=== PATIENT | male | born 1945 | race Caucasian/White ===

== ENCOUNTER → 2017-11-12 13:11 | Outpatient (CLI) | payer MEDICARE, SELFPAY ==
[2017-11-11 16:18] LABS: Absolute Lymphocyte Count 2.19 X10^3/ul (0.83-4.51); Absolute Neutrophil Count 4.1 X10^3/uL (2.0-7.7); Basophil# 0.03 X10^3/uL; Basophil% 0.4 % (0-1); Eosinophil# 0.04 X10^3/uL; Eosinophils% 0.6 % (0-5); Hematocrit 39.6 % (40-54); Hemoglobin 13.2 g/dl (13.0-16.5); Lymphocyte # 2.19 X10^3/ul (4.0); Lymphocyte % 31.6 % (19-41); Mean Corp Hgb Conc 33.3 g/gl (32-36); Mean Corpuscular Hgb 31.7 pg (27.0-32.0); Mean Platelet Vol. 10.8 fl (6.2-12.0); Monocyte# 0.58 X10^3/uL; Monocyte% 8.4 % (0-10); Neutrophil # 4.08 X10^3/uL (2.7-7.7); Neutrophil % 58.7 % (47-70); Platelet Count 167 K/mm3 (150-450); RBC Distribution Width CV 13.4 % (11.6-14.6); RBC Distribution Width SD 44.8 fl (35.1-43.9); Red Blood Count 4.17 M/mm3 (4.6-6.2); White Blood Count 6.9 K/mm3 (4.4-11.0)
[2017-11-11 16:24] LABS: POSITIVE COUNT NO; POSITIVE DIFFERENTIAL NO; POSITIVE MORPHOLOGY NO
[2017-11-11 16:44] LABS: PSA,Total- Diagnostic < 0.01 ng/mL (0.0-4.0)
--- NOTE | 2017-11-12 13:12 | CT_ITS ---
STUDY: CT PELVIS WITH CONTRAST REASON FOR EXAM: Male, 71 years old. Patient has a history of prostate cancer. This is a radiation treatment planning examination. RADIATION DOSAGE (If Supplied By Facility): CTDIvol = ( 24.62 ) mGy, DLP = ( 991.86 ) mGycm TECHNIQUE: Transaxial imaging of the pelvis was performed with oral contrast. 100 ml of Isovue 300 contrast was administered intravenously. Individualized dose optimization techniques were used for this CT. COMPARISON: Comparison is made with prior study dated May 07, 2016. FINDINGS: Normal urinary bladder. The patient is status post prostatectomy. Small bilateral benign-appearing inguinal lymph nodes. Normal visualized small intestine. There are multiple colonic diverticula of the sigmoid colon consistent with chronic diverticulosis. There is minimal fluid within the cul-de-sac consistent with a normal physiologic pelvic fluid. There is no pelvic lymphadenopathy or mass lesion. Normal visualized pelvic arteries. Normal abdominal wall. There are diffuse degenerative changes of the visualized lumbar spine. Stable tiny sclerotic density in the right iliac crest and left acetabulum. These are unchanged and most likely represent tiny bone islands. CT/Pelvis WITH IV Contrast IMPRESSION: The patient is status post prostatectomy. No acute abnormality is seen. Electronically Signed: Edgard Amin MD at 10:44 EDT Tel [phone], Service support ,
[2017-11-12 14:10] LABS: CREATININE FINGERSTICK < 0.6 mg/dL (0.70-1.30); EGFR FINGERSTICK > 60.0000 mL/min (>60)
== END ==
PROVIDERS: Family Provider Internal Medicine; PCP Internal Medicine; Visit Provider Radiology Radiation Oncology
DX: Z01.818 Encounter for other preprocedural examination (principal); C61 Malignant neoplasm of prostate
CPT/HCPCS: 36415; 72193; 84153; 85025; Q9967

== ENCOUNTER → 2017-12-05 15:33 | Outpatient (CLI) | payer MEDICARE, SELFPAY ==
[2017-12-05 15:57] LABS: Absolute Lymphocyte Count 2.06 X10^3/ul (0.83-4.51); Absolute Neutrophil Count 2.7 X10^3/uL (2.0-7.7); Basophil# 0.04 X10^3/uL; Basophil% 0.7 % (0-1); Eosinophil# 0.15 X10^3/uL; Eosinophils% 2.8 % (0-5); Hematocrit 39.5 % (40-54); Hemoglobin 13.6 g/dl (13.0-16.5); Lymphocyte # 2.06 X10^3/ul (4.0); Lymphocyte % 37.8 % (19-41); Mean Corp Hgb Conc 34.4 g/gl (32-36); Mean Corpuscular Hgb 31.7 pg (27.0-32.0); Mean Corpuscular Volume 92.1 fL (80-94); Mean Platelet Vol. 9.9 fl (6.2-12.0); Monocyte% 9.2 % (0-10); Neutrophil # 2.69 X10^3/uL (2.7-7.7); Neutrophil % 49.3 % (47-70); Platelet Count 160 K/mm3 (150-450); RBC Distribution Width CV 12.7 % (11.6-14.6); RBC Distribution Width SD 41.6 fl (35.1-43.9); Red Blood Count 4.29 M/mm3 (4.6-6.2); White Blood Count 5.5 K/mm3 (4.4-11.0)
[2017-12-05 16:06] LABS: POSITIVE COUNT NO; POSITIVE DIFFERENTIAL NO; POSITIVE MORPHOLOGY NO
== END ==
PROVIDERS: Family Provider Internal Medicine; PCP Internal Medicine; Visit Provider Radiology Radiation Oncology
DX: C61 Malignant neoplasm of prostate (principal)
CPT/HCPCS: 36415; 85025

== ENCOUNTER → 2017-12-06 08:13 | Outpatient (CLI) | payer MEDICARE, SELFPAY | PROVIDERS: Family Provider Internal Medicine; PCP Internal Medicine; Visit Provider Radiology Radiation Oncology | DX: C61 Malignant neoplasm of prostate (principal) | CPT/HCPCS: 77014 ==

== ENCOUNTER → 2017-12-24 08:39 | Outpatient (CLI) | payer MEDICARE, SELFPAY ==
[2017-12-24 09:54] LABS: AST(SGOT) 27 U/L (15-37); Alanine Aminotransfer ALT/SGPT 40 U/L (16-61); Albumin, Serum 3.8 g/dL (3.2-5.0); Alkaline Phosphatase 51 U/L (45-117); Bilirubin, Direct 0.23 mg/dL (0.00-0.30); Cholesterol 158 mg/dL (200); Globulin 3.2 g/dL (2.2-4.2); High Density Lipoprotein 66 mg/dL; Triglycerides 58 mg/dL; Very Low Density Lipoprotein 12 mg/dL (5-40)
== END ==
PROVIDERS: Family Provider Internal Medicine; PCP Internal Medicine; Visit Provider Internal Medicine Cardiovascular Disease
DX: E78.5 Hyperlipidemia, unspecified (principal); Z79.899 Other long term (current) drug therapy
CPT/HCPCS: 36415; 80061; 80076

== ENCOUNTER → 2017-12-26 09:40 | Outpatient (CLI) | payer MEDICARE, SELFPAY ==
[2017-12-26 11:11] LABS: Absolute Lymphocyte Count 1.06 X10^3/ul (0.83-4.51); Absolute Neutrophil Count 4.3 X10^3/uL (2.0-7.7); Basophil# 0.05 X10^3/uL; Basophil% 0.9 % (0-1); Eosinophil# 0.12 X10^3/uL; Eosinophils% 2.1 % (0-5); Hematocrit 37.2 % (40-54); Hemoglobin 12.4 g/dl (13.0-16.5); Lymphocyte # 1.06 X10^3/ul (4.0); Lymphocyte % 18.3 % (19-41); Mean Corp Hgb Conc 33.3 g/gl (32-36); Mean Corpuscular Hgb 31.2 pg (27.0-32.0); Mean Corpuscular Volume 93.7 fL (80-94); Mean Platelet Vol. 9.6 fl (6.2-12.0); Monocyte% 5.2 % (0-10); Neutrophil # 4.26 X10^3/uL (2.7-7.7); Neutrophil % 73.3 % (47-70); POSITIVE COUNT NO; POSITIVE DIFFERENTIAL NO; POSITIVE MORPHOLOGY NO; Platelet Count 173 K/mm3 (150-450); RBC Distribution Width CV 13.3 % (11.6-14.6); RBC Distribution Width SD 46.1 fl (35.1-43.9); Red Blood Count 3.97 M/mm3 (4.6-6.2); White Blood Count 5.8 K/mm3 (4.4-11.0)
== END ==
PROVIDERS: Family Provider Internal Medicine; PCP Internal Medicine; Visit Provider Radiology Radiation Oncology
DX: C61 Malignant neoplasm of prostate (principal)
CPT/HCPCS: 36415; 85025

== ENCOUNTER → 2018-06-24 08:43 | Outpatient (CLI) | payer MEDICARE, SELFPAY ==
--- NOTE | 2018-06-24 08:48 | US_ITS ---
PROCEDURES: ULTRASOUND AORTA REASON FOR EXAM: Male, 72 years old. History of smoking and hypertension. TECHNIQUE: Ultrasound evaluation of the aorta was performed with real-time and static low-scale imaging. COMPARISON: None. FINDINGS: There is no elongation or tortuosity of the abdominal aorta. Aorta measures: Proximal 2.1 cm. Middle 1.6 cm. Distal 1.4 cm. Aorta measure transversely: Proximal 2.3 cm. Middle 1.9 cm. Distal 1.7 cm. Right iliac artery measures: 0.9 cm. Right iliac artery measure transversely: 1.0 cm. Left iliac artery measures: 1.0 cm. Left iliac artery measure transversely: 1.0 cm. There is no demonstrated aneurysm.. There are peripheral calcifications within the abdominal aorta. US/US ABD AORTA SCREEN/AAA IMPRESSION: No abdominal aortic aneurysm. Atherosclerosis. Electronically Signed: Yamilex Gutierrez MD at 16:52 EDT Tel , Service support ,
== END ==
PROVIDERS: Family Provider Internal Medicine; PCP Internal Medicine; Referring Provider Nurse Practitioner Family; Visit Provider Nurse Practitioner Family
DX: Z13.6 Encounter for screening for cardiovascular disorders (principal); I10 Essential (primary) hypertension; Z87.891 Personal history of nicotine dependence
CPT/HCPCS: 76706

== ENCOUNTER → 2018-07-01 08:06 | Outpatient (CLI) | payer MEDICARE, SELFPAY ==
[2018-07-01 09:11] LABS: Anion Gap 6 (5-15); BUN 18 mg/dL (7-18); Calcium,Total 8.6 mg/dL (8.5-10.1); Chloride 108 mmol/L (98-107); EST Glomerular Filtration Rate 88 mL/min (>60); Est Glom Filt Rate - Afr Amer 107 mL/min (>60); Glucose 94 mg/dL (74-106); Potassium 4.3 mmol/L (3.5-5.1); Sodium Level 142 mmol/L (136-145)
[2018-07-01 09:20] LABS: AST(SGOT) 22 U/L (15-37); Alanine Aminotransfer ALT/SGPT 36 U/L (16-61); Albumin, Serum 3.9 g/dL (3.2-5.0); Alkaline Phosphatase 52 U/L (45-117); Bilirubin, Direct 0.24 mg/dL (0.00-0.30); Cholesterol 156 mg/dL (200); Globulin 3.2 g/dL (2.2-4.2); High Density Lipoprotein 71 mg/dL; PSA,Total- Diagnostic 0.02 ng/mL (0.0-4.0); Protein, Total 7.1 g/dL (6.4-8.2); Triglycerides 55 mg/dL; Very Low Density Lipoprotein 11 mg/dL (5-40)
== END ==
PROVIDERS: Internal Medicine Cardiovascular Disease; Nurse Practitioner Family; Family Provider Internal Medicine; PCP Internal Medicine; Referring Provider Urology; Visit Provider Urology
DX: C61 Malignant neoplasm of prostate (principal); I10 Essential (primary) hypertension; E78.5 Hyperlipidemia, unspecified; R97.20 Elevated prostate specific antigen [PSA]
CPT/HCPCS: 36415; 80048; 80061; 80076; 84153

== ENCOUNTER → 2018-08-18 08:16 | Outpatient (CLI) | payer MEDICARE, SELFPAY ==
[2018-08-18 09:33] LABS: Anion Gap 8 (5-15); BUN 15 mg/dL (7-18); BUN/Creat Ratio 16.3 RATIO (10-20); Calcium,Total 8.5 mg/dL (8.5-10.1); Chloride 99 mmol/L (98-107); Creatinine, Serum 0.92 mg/dL (0.70-1.30); EST Glomerular Filtration Rate 86 mL/min (>60); Est Glom Filt Rate - Afr Amer 104 mL/min (>60); Glucose 95 mg/dL (74-106); Potassium 4.2 mmol/L (3.5-5.1); Sodium Level 135 mmol/L (136-145)
== END ==
PROVIDERS: Family Provider Internal Medicine; PCP Internal Medicine; Referring Provider Internal Medicine; Visit Provider Internal Medicine
DX: I10 Essential (primary) hypertension (principal)
CPT/HCPCS: 36415; 80048

== ENCOUNTER → 2018-10-17 08:54 | Outpatient (CLI) | payer MEDICARE, SELFPAY ==
[2018-10-17 08:19] VITALS: BMI 26.7
[2018-10-17 12:09] LABS: Absolute Lymphocyte Count 2.12 X10^3/ul (0.83-4.51); Absolute Neutrophil Count 5.4 X10^3/uL (2.0-7.7); Basophil# 0.02 X10^3/uL; Basophil% 0.2 % (0-1); Eosinophil# 0.03 X10^3/uL; Eosinophils% 0.4 % (0-5); Hematocrit 42.9 % (40-54); Hemoglobin 14.4 g/dl (13.0-16.5); Lymphocyte # 2.12 X10^3/ul (4.0); Lymphocyte % 26.4 % (19-41); Mean Corp Hgb Conc 33.6 g/gl (32-36); Mean Corpuscular Hgb 31.9 pg (27.0-32.0); Mean Corpuscular Volume 94.9 fL (80-94); Monocyte# 0.46 X10^3/uL; Monocyte% 5.7 % (0-10); Neutrophil # 5.38 X10^3/uL (2.7-7.7); Neutrophil % 67.2 % (47-70); POSITIVE COUNT NO; POSITIVE DIFFERENTIAL NO; POSITIVE MORPHOLOGY NO; Platelet Count 221 K/mm3 (150-450); RBC Distribution Width CV 13.1 % (11.6-14.6); RBC Distribution Width SD 44.1 fl (35.1-43.9); Red Blood Count 4.52 M/mm3 (4.6-6.2)
[2018-10-17 12:32] LABS: AST(SGOT) 28 U/L (15-37); Alanine Aminotransfer ALT/SGPT 36 U/L (16-61); Albumin, Serum 4.2 g/dL (3.2-5.0); Alkaline Phosphatase 50 U/L (45-117); Bilirubin, Direct 0.31 mg/dL (0.00-0.30); Cholesterol 185 mg/dL (200); Globulin 3.4 g/dL (2.2-4.2); High Density Lipoprotein 87 mg/dL; Protein, Total 7.6 g/dL (6.4-8.2); Triglycerides 83 mg/dL; Very Low Density Lipoprotein 17 mg/dL (5-40)
[2018-10-17 12:33] LABS: Anion Gap 8 (5-15); BUN 18 mg/dL (7-18); BUN/Creat Ratio 16.8 RATIO (10-20); Chloride 101 mmol/L (98-107); Creatinine, Serum 1.07 mg/dL (0.70-1.30); EST Glomerular Filtration Rate 72 mL/min (>60); Est Glom Filt Rate - Afr Amer 87 mL/min (>60); Glucose 91 mg/dL (74-106); Potassium 4.3 mmol/L (3.5-5.1); Sodium Level 134 mmol/L (136-145)
== END ==
PROVIDERS: Internal Medicine Cardiovascular Disease; Family Provider Internal Medicine; PCP Internal Medicine; Visit Provider Nurse Practitioner Family
DX: R11.2 Nausea with vomiting, unspecified (principal); I10 Essential (primary) hypertension; E78.5 Hyperlipidemia, unspecified; R26.89 Other abnormalities of gait and mobility
CPT/HCPCS: 36415; 80048; 80061; 80076; 85025

== ENCOUNTER → 2018-11-07 14:05 | Outpatient (CLI) | payer MEDICARE, SELFPAY ==
[2018-10-31 08:16] VITALS: BMI 26.7
--- NOTE | 2018-11-07 14:09 | EKG12_ITS ---
Test Reason : PRE-OP Blood Pressure : / mmHG Vent. Rate : 070 BPM Atrial Rate : 070 BPM P-R Int : 234 ms QRS Dur : 096 ms QT Int : 402 ms P-R-T Axes : -02 049 019 degrees QTc Int : 434 ms Sinus rhythm with 1st degree A-V block with occasional Premature ventricular complexes Otherwise normal ECG Confirmed by NHI ZARATE ([id number]), mapping editor ZEE SINHA ([id number]) on 11/10/2018 4:55:52 PM Referred By: Jonny Wallace Confirmed By:NHI ZARATE
== END ==
PROVIDERS: Family Provider Internal Medicine; PCP Internal Medicine; Referring Provider Nurse Practitioner Family; Visit Provider Nurse Practitioner Family
DX: I49.3 Ventricular premature depolarization (principal)
CPT/HCPCS: 93005

== ENCOUNTER → 2019-01-15 16:48 | Outpatient (CLI) | payer MEDICARE, SELFPAY ==
[2018-12-09 11:13] VITALS: BMI 26.7
[2019-01-15 17:27] LABS: PSA,Total- Diagnostic 0.01 ng/mL (0.0-4.0)
== END ==
PROVIDERS: Family Provider Internal Medicine; PCP Internal Medicine; Referring Provider Urology; Visit Provider Urology
DX: C61 Malignant neoplasm of prostate (principal)
CPT/HCPCS: 36415; 84153

== ENCOUNTER → 2019-03-03 08:31 | Outpatient (CLI) | payer MEDICARE, SELFPAY ==
[2019-03-03 08:12] VITALS: BMI 26.7
[2019-03-03 12:31] LABS: BUN 22 mg/dL (7-18); Creatinine, Serum 1.06 mg/dL (0.70-1.30); Glucose 100 mg/dL (74-106)
[2019-03-03 12:32] LABS: ALB/GLOB Ratio 1.3 RATIO (0.9-2.4); AST(SGOT) 26 U/L (15-37); Alanine Aminotransfer ALT/SGPT 36 U/L (16-61); Albumin, Serum 4.1 g/dL (3.2-5.0); Alkaline Phosphatase 47 U/L (45-117); Anion Gap 8 (5-15); BUN/Creat Ratio 20.8 RATIO (10-20); Chloride 100 mmol/L (98-107); EST Glomerular Filtration Rate 73 mL/min (>60); Est Glom Filt Rate - Afr Amer 88 mL/min (>60); Globulin 3.2 g/dL (2.2-4.2); Potassium 4.5 mmol/L (3.5-5.1); Protein, Total 7.3 g/dL (6.4-8.2); Sodium Level 135 mmol/L (136-145)
== END ==
PROVIDERS: Family Provider Internal Medicine; PCP Internal Medicine; Visit Provider Internal Medicine
DX: I10 Essential (primary) hypertension (principal); E78.5 Hyperlipidemia, unspecified
CPT/HCPCS: 36415; 80053

== ENCOUNTER → 2019-03-25 06:19 | Outpatient (CLI) | payer MEDICARE, SELFPAY ==
[2019-03-05 08:47] VITALS: BMI 26.3
--- NOTE | 2019-03-25 22:55 | STRESSREP ---
Stress Test Report Exercise myocardial perfusion stress test. 73-year-old man with a history of coronary artery disease. Medications: Aspirin, losartan, hydrochlorothiazide, Plavix, metoprolol. Stress protocol: Resting EKG demonstrates sinus bradycardia with a rate of 55 bpm normal intervals are noted resting blood pressures 126/72 mmHg. The patient exercised according to regular Aniceto protocol for a total duration of 6 minutes and 45 seconds. The maximum heart rate attained was 141 bpm which was 95% of maximum predicted heart rate and maximum workload was 8.1 metabolic equivalents. The patient maintained sinus rhythm throughout the recording. At rest there were nonspecific ST-T wave changes noted with no meet the criteria for ischemia at peak exercise was approximately 1.[address] depression noted in lead V5 and V6 as well as lead aVF in leads II and III of approximately 1.9 mm. The above was suggestive of ischemia. During recovery the patient was noted to go into a Mobitz type I rhythm. No chest pain was noted. The resting blood pressures 126/72 mmHg with a peak blood pressure 150/72 mmHg. No clinical angina was noted the test was terminated due to leg fatigue. Myocardial perfusion protocol. 11.1 mCi of technetium 99m sestamibi was injected at rest. The patient was exercised for 6 minutes and 45 seconds and at peak exercise 34.2 mCi of technetium 99m sestamibi was injected stress images were obtained stress and rest images were reconstructed and compared in the short axis vertical and horizontal long axis. Gated images were also obtained Perfusion SPECT analysis: Review of the stress images did not demonstrate any areas of overt ischemia present. No previous infarct is also noted. Gated SPECT analysis: The gated ejection fraction is noted to be 77%. Conclusion: Exercise myocardial perfusion stress test with nuclear images demonstrating no evidence of ischemia. EKG changes suggestive of ischemia noted though with no angina present. Wenckebach periodicity noted during recovery of questionable significance. Preserved ejection fraction.
== END ==
PROVIDERS: Family Provider Internal Medicine; PCP Internal Medicine; Referring Provider Internal Medicine Cardiovascular Disease; Visit Provider Internal Medicine Cardiovascular Disease
DX: I25.10 Atherosclerotic heart disease of native coronary artery without angina pectoris (principal); Z95.5 Presence of coronary angioplasty implant and graft
CPT/HCPCS: 78452; 93017; A9500; A4216

== ENCOUNTER → 2019-06-15 08:04 | Outpatient (CLI) | payer MEDICARE, SELFPAY ==
[2019-03-05 08:47] VITALS: BMI 26.3
[2019-06-15 09:54] LABS: AST(SGOT) 28 U/L (15-37); Alanine Aminotransfer ALT/SGPT 37 U/L (16-61); Alkaline Phosphatase 46 U/L (45-117); Bilirubin, Direct 0.16 mg/dL (0.00-0.30); Cholesterol 176 mg/dL (200); Globulin 3.1 g/dL (2.2-4.2); High Density Lipoprotein 79 mg/dL; Protein, Total 7.1 g/dL (6.4-8.2); Triglycerides 69 mg/dL; Very Low Density Lipoprotein 14 mg/dL (5-40)
== END ==
PROVIDERS: Family Provider Internal Medicine; PCP Internal Medicine; Referring Provider Internal Medicine Cardiovascular Disease; Visit Provider Internal Medicine Cardiovascular Disease
DX: E78.5 Hyperlipidemia, unspecified (principal)
CPT/HCPCS: 36415; 80061; 80076

== ENCOUNTER → 2019-07-20 11:50 | Outpatient (CLI) | payer MEDICARE, SELFPAY ==
[2019-03-05 08:47] VITALS: BMI 26.3
[2019-07-20 12:46] LABS: PSA,Total- Diagnostic < 0.01 ng/mL (0.0-4.0)
== END ==
PROVIDERS: Family Provider Internal Medicine; PCP Internal Medicine; Referring Provider Urology; Visit Provider Urology
DX: C61 Malignant neoplasm of prostate (principal); R97.20 Elevated prostate specific antigen [PSA]
CPT/HCPCS: 36415; 84153

== ENCOUNTER → 2019-09-08 08:33 | Outpatient (CLI) | payer MEDICARE, SELFPAY ==
[2019-09-08 08:10] VITALS: BMI 26.3
[2019-09-08 12:22] LABS: Absolute Neutrophil Count 5.1 X10^3/uL (2.0-7.7); Basophil# 0.05 X10^3/uL; Basophil% 0.6 % (0-1); Eosinophil# 0.03 X10^3/uL; Eosinophils% 0.4 % (0-5); Hematocrit 39.8 % (40-54); Hemoglobin 13.5 g/dL (13.0-16.5); Lymphocyte % 33.9 % (19-41); Mean Corp Hgb Conc 33.9 g/dL (32-36); Mean Corpuscular Hgb 32.1 pg (27.0-32.0); Mean Corpuscular Volume 94.8 fL (80-94); Mean Platelet Vol. 9.2 fl (6.2-12.0); Monocyte# 0.45 X10^3/uL; Monocyte% 5.3 % (0-10); NRBC Flagged by Analyzer 0 % (0-5); Neutrophil # 5.11 X10^3/uL (2.7-7.7); Neutrophil % 59.6 % (47-70); Platelet Count 241 K/mm3 (150-450); RBC Distribution Width CV 12.6 % (11.6-14.6); White Blood Count 8.6 K/mm3 (4.4-11.0)
[2019-09-08 12:31] LABS: Anion Gap 4 (5-15); BUN 17 mg/dL (7-18); BUN/Creat Ratio 16.3 RATIO (10-20); Calcium,Total 8.9 mg/dL (8.5-10.1); Chloride 100 mmol/L (98-107); Creatinine, Serum 1.04 mg/dL (0.70-1.30); EST Glomerular Filtration Rate 74 mL/min (>60); Est Glom Filt Rate - Afr Amer 90 mL/min (>60); Glucose 99 mg/dL (74-106); Potassium 4.4 mmol/L (3.5-5.1); Sodium Level 133 mmol/L (136-145)
== END ==
PROVIDERS: Family Provider Internal Medicine; PCP Internal Medicine; Visit Provider Internal Medicine
DX: I10 Essential (primary) hypertension (principal)
CPT/HCPCS: 36415; 80048; 85025

== ENCOUNTER → 2019-09-23 09:37 | Outpatient (CLI) | payer MEDICARE, SELFPAY ==
[2019-09-08 08:10] VITALS: BMI 26.3
--- NOTE | 2019-09-23 09:38 | RAD_ITS ---
STUDY: X-RAY - RIGHT TIBIA AND FIBULA REASON FOR EXAM: Male, 73 years old. Giordano pain in runner. TECHNIQUE: 2 view(s) of the tibia and fibula were obtained on 3 images. COMPARISON: None. FINDINGS: Normal visualized tibia. Normal visualized fibula. The soft tissue structures are unremarkable. RAD/Tibia & Fibula 2 Views IMPRESSION: No abnormality of the lower extremity. Electronically Signed: Donell Oswald MD at 16:59 EST , Service support ,
== END ==
PROVIDERS: PCP Internal Medicine; Referring Provider Internal Medicine; Visit Provider Internal Medicine
DX: M79.661 Pain in right lower leg (principal)
CPT/HCPCS: 73590

== ENCOUNTER → 2019-10-26 10:36 | Outpatient (CLI) | payer MEDICARE, SELFPAY ==
[2019-10-06 08:38] VITALS: BMI 27.0
== END ==
PROVIDERS: PCP Internal Medicine; Visit Provider Internal Medicine Cardiovascular Disease
DX: G47.33 Obstructive sleep apnea (adult) (pediatric) (principal)
CPT/HCPCS: 95806

== ENCOUNTER → 2020-01-22 09:15 | Outpatient (CLI) | payer MEDICARE, SELFPAY ==
[2019-11-12 08:28] VITALS: BMI 27.0
[2020-01-22 10:06] LABS: PSA,Total- Diagnostic < 0.01 ng/mL (0.0-4.0)
== END ==
PROVIDERS: PCP Internal Medicine; Referring Provider Urology; Visit Provider Urology
DX: C61 Malignant neoplasm of prostate (principal)
CPT/HCPCS: 36415; 84153

== ENCOUNTER → 2020-03-21 08:34 | Outpatient (CLI) | payer MEDICARE, SELFPAY ==
[2020-03-21 08:14] VITALS: BMI 27.0
[2020-03-21 12:30] LABS: Absolute Lymphocyte Count 3.57 X10^3/uL (0.83-4.51); Absolute Neutrophil Count 4.1 X10^3/uL (2.0-7.7); Basophil# 0.03 X10^3/uL; Basophil% 0.4 % (0-1); Eosinophil# 0.06 X10^3/uL; Eosinophils% 0.7 % (0-5); Hematocrit 40.1 % (40-54); Hemoglobin 13.4 g/dL (13.0-16.5); Lymphocyte # 3.57 X10^3/ul (4.0); Lymphocyte % 43.5 % (19-41); Mean Corp Hgb Conc 33.4 g/dL (32-36); Mean Corpuscular Hgb 32.8 pg (27.0-32.0); Mean Platelet Vol. 9.4 fl (6.2-12.0); Monocyte# 0.47 X10^3/uL; Monocyte% 5.7 % (0-10); NRBC Flagged by Analyzer 0 % (0-5); Neutrophil # 4.05 X10^3/uL (2.7-7.7); Neutrophil % 49.5 % (47-70); Platelet Count 265 K/mm3 (150-450); RBC Distribution Width CV 13.2 % (11.6-14.6); RBC Distribution Width SD 47.4 fl (35.1-43.9); Red Blood Count 4.09 M/mm3 (4.6-6.2); White Blood Count 8.2 K/mm3 (4.4-11.0)
[2020-03-21 12:53] LABS: Hemoglobin A1c 5.4 % (3.8-5.6)
[2020-03-21 13:15] LABS: ALB/GLOB Ratio 1.2 RATIO (0.9-2.4); AST(SGOT) 24 U/L (15-37); Alanine Aminotransfer ALT/SGPT 36 U/L (16-61); Albumin, Serum 4.2 g/dL (3.2-5.0); Alkaline Phosphatase 57 U/L (45-117); Anion Gap 6 (5-15); BUN 23 mg/dL (7-18); BUN/Creat Ratio 21.5 RATIO (10-20); Bilirubin, Direct 0.31 mg/dL (0.00-0.30); Calcium,Total 9.1 mg/dL (8.5-10.1); Chloride 98 mmol/L (98-107); Creatinine, Serum 1.07 mg/dL (0.70-1.30); EST Glomerular Filtration Rate 72 mL/min (>60); Est Glom Filt Rate - Afr Amer 87 mL/min (>60); Globulin 3.4 g/dL (2.2-4.2); Glucose 98 mg/dL (74-106); Protein, Total 7.6 g/dL (6.4-8.2); Sodium Level 132 mmol/L (136-145)
[2020-03-21 13:18] LABS: Cholesterol 174 mg/dL (200); High Density Lipoprotein 69 mg/dL; Triglycerides 58 mg/dL; Very Low Density Lipoprotein 12 mg/dL (5-40)
[2020-03-22 12:51] LABS: Vitamin B12 357 pg/mL (211-911)
== END ==
PROVIDERS: Internal Medicine Cardiovascular Disease; PCP Internal Medicine; Referring Provider Internal Medicine; Visit Provider Internal Medicine
DX: I10 Essential (primary) hypertension (principal); E78.5 Hyperlipidemia, unspecified; D75.89 Other specified diseases of blood and blood-forming organs
CPT/HCPCS: 36415; 80053; 80061; 82248; 82607; 82746; 83036; 85025

== ENCOUNTER → 2020-04-11 08:56 | Outpatient (CLI) | payer MEDICARE, SELFPAY ==
[2020-03-21 08:14] VITALS: BMI 27.0
[2020-04-11 09:48] LABS: Anion Gap 3 (5-15); BUN 19 mg/dL (7-18); BUN/Creat Ratio 19.9 RATIO (10-20); Calcium,Total 8.7 mg/dL (8.5-10.1); Chloride 101 mmol/L (98-107); Creatinine, Serum 0.95 mg/dL (0.70-1.30); EST Glomerular Filtration Rate 82 mL/min (>60); Est Glom Filt Rate - Afr Amer 99 mL/min (>60); Glucose 92 mg/dL (74-106); Sodium Level 133 mmol/L (136-145)
== END ==
PROVIDERS: PCP Internal Medicine; Referring Provider Internal Medicine; Visit Provider Internal Medicine
DX: I10 Essential (primary) hypertension (principal)
CPT/HCPCS: 36415; 80048

== ENCOUNTER → 2020-08-27 10:23 | Outpatient (CLI) | payer MEDICARE, SELFPAY ==
[2020-04-26 10:24] VITALS: BMI 24.8
[2020-08-27 10:54] LABS: Absolute Lymphocyte Count 5.16 X10^3/uL (0.83-4.51); Absolute Neutrophil Count 6.2 X10^3/uL (2.0-7.7); Basophil# 0.06 X10^3/uL; Basophil% 0.5 % (0-1); Eosinophil# 0.11 X10^3/uL; Eosinophils% 0.9 % (0-5); Hematocrit 38.6 % (40-54); Lymphocyte # 5.16 X10^3/ul (4.0); Lymphocyte % 42.4 % (19-41); Mean Corp Hgb Conc 33.7 g/dL (32-36); Mean Corpuscular Hgb 31.6 pg (27.0-32.0); Mean Corpuscular Volume 93.7 fL (80-94); Mean Platelet Vol. 8.7 fl (6.2-12.0); Monocyte# 0.57 X10^3/uL; Monocyte% 4.7 % (0-10); NRBC Flagged by Analyzer 0 % (0-5); Neutrophil # 6.22 X10^3/uL (2.7-7.7); Neutrophil % 51.2 % (47-70); POSITIVE DIFFERENTIAL YES; Platelet Count 228 K/mm3 (150-450); RBC Distribution Width CV 12.6 % (11.6-14.6); RBC Distribution Width SD 43.6 fl (35.1-43.9); Red Blood Count 4.12 M/mm3 (4.6-6.2); White Blood Count 12.2 K/mm3 (4.4-11.0)
[2020-08-27 10:59] LABS: Differential Indicated SCAN CRITERIA MET
[2020-08-27 11:19] LABS: Differential Comment SCANNED
[2020-08-27 11:27] LABS: ALB/GLOB Ratio 1.2 RATIO (0.9-2.4); AST(SGOT) 18 U/L (15-37); Alanine Aminotransfer ALT/SGPT 34 U/L (16-61); Albumin, Serum 3.8 g/dL (3.2-5.0); Alkaline Phosphatase 55 U/L (45-117); Anion Gap 4 (5-15); BUN 19 mg/dL (7-18); BUN/Creat Ratio 19.3 RATIO (10-20); Calcium,Total 8.4 mg/dL (8.5-10.1); Chloride 99 mmol/L (98-107); Creatinine, Serum 0.98 mg/dL (0.70-1.30); EST Glomerular Filtration Rate 79 mL/min (>60); Est Glom Filt Rate - Afr Amer 96 mL/min (>60); Globulin 3.1 g/dL (2.2-4.2); Glucose 92 mg/dL (74-106); PSA,Total- Diagnostic < 0.01 ng/mL (0.0-4.0); Potassium 4.2 mmol/L (3.5-5.1); Protein, Total 6.9 g/dL (6.4-8.2); Sodium Level 133 mmol/L (136-145)
== END ==
PROVIDERS: PCP Internal Medicine; Visit Provider Urology
DX: C61 Malignant neoplasm of prostate (principal); D75.89 Other specified diseases of blood and blood-forming organs; I10 Essential (primary) hypertension
CPT/HCPCS: 36415; 80053; 84153; 85025

== ENCOUNTER → 2020-09-19 09:17 | Outpatient (CLI) | payer MEDICARE, SELFPAY ==
[2020-09-05 08:22] VITALS: BMI 26.2
[2020-09-19 09:44] LABS: Absolute Lymphocyte Count 3.27 X10^3/uL (0.83-4.51); Absolute Neutrophil Count 4.9 X10^3/uL (2.0-7.7); Basophil# 0.06 X10^3/uL; Basophil% 0.7 % (0-1); Eosinophil# 0.05 X10^3/uL; Eosinophils% 0.6 % (0-5); Hematocrit 39.8 % (40-54); Hemoglobin 13.5 g/dL (13.0-16.5); Lymphocyte # 3.27 X10^3/ul (4.0); Lymphocyte % 37.2 % (19-41); Mean Corp Hgb Conc 33.9 g/dL (32-36); Mean Corpuscular Hgb 32.1 pg (27.0-32.0); Mean Corpuscular Volume 94.8 fL (80-94); Mean Platelet Vol. 8.8 fl (6.2-12.0); Monocyte# 0.49 X10^3/uL; Monocyte% 5.6 % (0-10); NRBC Flagged by Analyzer 0 % (0-5); Neutrophil % 55.7 % (47-70); Platelet Count 230 K/mm3 (150-450); RBC Distribution Width CV 12.3 % (11.6-14.6); RBC Distribution Width SD 42.8 fl (35.1-43.9); White Blood Count 8.8 K/mm3 (4.4-11.0)
== END ==
PROVIDERS: PCP Internal Medicine; Referring Provider Internal Medicine; Visit Provider Internal Medicine
DX: D72.829 Elevated white blood cell count, unspecified (principal)
CPT/HCPCS: 36415; 85025

== ENCOUNTER → 2020-09-30 | Outpatient (CLI) | payer MEDICARE, SELFPAY ==
[2020-09-30 10:34] VITALS: BMI 26.2
== END | disposition home or self-care (01) ==
LOC: LABSPEC 11:02
PROVIDERS: PCP Internal Medicine; Referring Provider Nurse Practitioner Family; Visit Provider Nurse Practitioner Family
DX: U07.1 COVID-19 (principal)
CPT/HCPCS: 87635; U0005; U0003

== ENCOUNTER 2020-10-04 11:55 | Outpatient (CLI) | payer MEDICARE, SELFPAY ==
[2020-09-30 10:34] VITALS: BMI 26.2
[2020-10-04 12:25] VITALS: BP 115/61; PULSE 76; RESP 18; TEMP 37.8; O2SAT 97; BMI 25.7
[2020-10-04 13:00] VITALS: BP 96/53; PULSE 67; RESP 16; TEMP 37.8; O2SAT 96
[2020-10-04 13:30] VITALS: BP 96/45; PULSE 64; RESP 18; TEMP 38; O2SAT 97
[2020-10-04 14:05] VITALS: BP 99/51; PULSE 65; RESP 18; TEMP 37.7; O2SAT 98
[2020-10-04 14:32] VITALS: BP 113/76; PULSE 65; RESP 16; TEMP 37.2; O2SAT 98
== END 2020-10-04 14:35 | disposition home or self-care (01) ==
LOC: MS2OUT 11:55 → MS2 11:56
PROVIDERS: PCP Internal Medicine; Referring Provider Nurse Practitioner Acute Care; Visit Provider Nurse Practitioner Acute Care
DX: U07.1 COVID-19 (principal)
CPT/HCPCS: J7050; M0239; Q0245

== ENCOUNTER → 2021-01-27 12:43 | Outpatient (CLI) | payer MEDICARE, SELFPAY ==
[2021-01-27 14:17] LABS: PSA,Total- Diagnostic < 0.01 ng/mL (0.0-4.0)
== END ==
PROVIDERS: PCP Internal Medicine; Referring Provider Urology; Visit Provider Urology
DX: C61 Malignant neoplasm of prostate (principal)
CPT/HCPCS: 36415; 84153

== ENCOUNTER → 2021-03-01 10:43 | Outpatient (CLI) | payer MEDICARE, SELFPAY ==
[2021-03-01 10:28] VITALS: BMI 25.7
[2021-03-01 12:18] LABS: Absolute Lymphocyte Count 4.27 X10^3/uL (0.83-4.51); Absolute Neutrophil Count 4.7 X10^3/uL (2.0-7.7); Basophil# 0.07 X10^3/uL; Basophil% 0.7 % (0-1); Eosinophil# 0.05 X10^3/uL; Eosinophils% 0.5 % (0-5); Hemoglobin 13.3 g/dL (13.0-16.5); Lymphocyte # 4.27 X10^3/ul (0.83-4.51); Lymphocyte % 44.3 % (19-41); Mean Corp Hgb Conc 34.1 g/dL (32-36); Mean Corpuscular Hgb 31.5 pg (27.0-32.0); Mean Corpuscular Volume 92.4 fL (80-94); Mean Platelet Vol. 8.9 fl (6.2-12.0); Monocyte# 0.51 X10^3/uL; Monocyte% 5.3 % (0-10); NRBC Flagged by Analyzer 0 % (0-5); Neutrophil # 4.71 X10^3/uL (2.7-7.7); POSITIVE MORPHOLOGY YES; Platelet Count 228 K/mm3 (150-450); RBC Distribution Width CV 12.7 % (11.6-14.6); RBC Distribution Width SD 42.9 fl (35.1-43.9); Red Blood Count 4.22 M/mm3 (4.6-6.2); White Blood Count 9.6 K/mm3 (4.4-11.0)
[2021-03-01 12:19] LABS: Differential Indicated SCAN CRITERIA MET
[2021-03-01 12:38] LABS: ALB/GLOB Ratio 1.2 RATIO (0.9-2.4); AST(SGOT) 26 U/L (15-37); Alanine Aminotransfer ALT/SGPT 32 U/L (16-61); Albumin, Serum 3.8 g/dL (3.2-5.0); Alkaline Phosphatase 61 U/L (45-117); Anion Gap 6 (5-15); BUN 18 mg/dL (7-18); BUN/Creat Ratio 19.7 RATIO (10-20); Chloride 95 mmol/L (98-107); Cholesterol 166 mg/dL (200); Creatinine, Serum 0.92 mg/dL (0.70-1.30); EST Glomerular Filtration Rate 86 mL/min (>60); Est Glom Filt Rate - Afr Amer 104 mL/min (>60); Globulin 3.3 g/dL (2.2-4.2); Glucose 113 mg/dL (74-106); High Density Lipoprotein 84 mg/dL; Potassium 4.1 mmol/L (3.5-5.1); Protein, Total 7.1 g/dL (6.4-8.2); Sodium Level 127 mmol/L (136-145); Triglycerides 51 mg/dL; Very Low Density Lipoprotein 10 mg/dL (5-40)
[2021-03-01 12:50] LABS: Reactive Lymphocyte RARE
== END ==
PROVIDERS: PCP Internal Medicine; Referring Provider Internal Medicine; Visit Provider Internal Medicine
DX: I10 Essential (primary) hypertension (principal); E78.00 Pure hypercholesterolemia, unspecified
CPT/HCPCS: 36415; 80053; 80061; 85025

== ENCOUNTER → 2021-03-17 09:02 | Outpatient (CLI) | payer MEDICARE, SELFPAY ==
[2021-03-01 10:28] VITALS: BMI 25.7
[2021-03-17 10:06] LABS: Anion Gap 3 (5-15); BUN 18 mg/dL (7-18); BUN/Creat Ratio 18.7 RATIO (10-20); Calcium,Total 8.6 mg/dL (8.5-10.1); Chloride 102 mmol/L (98-107); Creatinine, Serum 0.96 mg/dL (0.70-1.30); EST Glomerular Filtration Rate 81 mL/min (>60); Est Glom Filt Rate - Afr Amer 98 mL/min (>60); Glucose 104 mg/dL (74-106); Potassium 4.5 mmol/L (3.5-5.1); Sodium Level 136 mmol/L (136-145)
== END ==
PROVIDERS: PCP Internal Medicine; Visit Provider Internal Medicine
DX: E87.1 Hypo-osmolality and hyponatremia (principal)
CPT/HCPCS: 36415; 80048

== ENCOUNTER 2021-08-29 15:30 | Outpatient (CLI) | payer MEDICARE, SELFPAY | END 2021-08-29 23:59 | disposition short-term general hospital (02) | LOC: LABSPEC 15:32 | PROVIDERS: PCP Internal Medicine; Referring Provider Physician Assistant; Visit Provider Physician Assistant | DX: U07.1 COVID-19 (principal) | CPT/HCPCS: 87635; U0003; U0005 ==

== ENCOUNTER 2021-09-26 08:34 | Outpatient (CLI) | payer MEDICARE, SELFPAY ==
[2021-09-26 12:59] LABS: Anion Gap 3 (5-15); BUN 16 mg/dL (7-18); Calcium,Total 8.6 mg/dL (8.5-10.1); Chloride 106 mmol/L (98-107); EST Glomerular Filtration Rate 78 mL/min (>60); Est Glom Filt Rate - Afr Amer 94 mL/min (>60); Glucose 97 mg/dL (74-106); Potassium 4.2 mmol/L (3.5-5.1); Sodium Level 138 mmol/L (136-145)
[2021-09-26 13:11] LABS: AST(SGOT) 32 U/L (15-37); Alanine Aminotransfer ALT/SGPT 46 U/L (16-61); Albumin, Serum 3.7 g/dL (3.2-5.0); Alkaline Phosphatase 60 U/L (45-117); Bilirubin, Direct 0.23 mg/dL (0.00-0.30); Cholesterol 147 mg/dL (200); Globulin 3.2 g/dL (2.2-4.2); High Density Lipoprotein 60 mg/dL; Protein, Total 6.9 g/dL (6.4-8.2); Triglycerides 59 mg/dL; Very Low Density Lipoprotein 12 mg/dL (5-40)
== END 2021-09-26 23:59 | disposition short-term general hospital (02) ==
LOC: BIMLAB 08:36
PROVIDERS: Internal Medicine Cardiovascular Disease; PCP Internal Medicine; Referring Provider Internal Medicine; Visit Provider Internal Medicine
DX: E78.5 Hyperlipidemia, unspecified (principal); E78.00 Pure hypercholesterolemia, unspecified; I10 Essential (primary) hypertension
CPT/HCPCS: 36415; 80048; 80061; 80076

== ENCOUNTER → 2022-01-30 | Outpatient (CLI) | payer MEDICARE, SELFPAY ==
[2022-01-30 10:14] LABS: PSA,Total- Diagnostic < 0.01 ng/mL (0.0-4.0)
== END | disposition home or self-care (01) ==
LOC: LAB 09:09
PROVIDERS: PCP Internal Medicine; Referring Provider Urology; Visit Provider Urology
DX: C61 Malignant neoplasm of prostate (principal)
CPT/HCPCS: 36415; 84153

== ENCOUNTER → 2022-04-26 | Outpatient (CLI) | payer MEDICARE, SELFPAY ==
[2022-04-26 16:49] LABS: Absolute Lymphocyte Count 3.61 X10^3/uL (0.83-4.51); Absolute Neutrophil Count 6.2 X10^3/uL (2.0-7.7); Basophil# 0.04 X10^3/uL; Basophil% 0.4 % (0-1); Eosinophil# 0.04 X10^3/uL; Eosinophils% 0.4 % (0-5); Hematocrit 41.3 % (40-54); Hemoglobin 13.9 g/dL (13.0-16.5); Lymphocyte # 3.61 X10^3/ul (0.83-4.51); Lymphocyte % 34.3 % (19-41); Mean Corp Hgb Conc 33.7 g/dL (32-36); Mean Corpuscular Hgb 32.3 pg (27.0-32.0); Mean Platelet Vol. 8.9 fl (6.2-12.0); Monocyte# 0.66 X10^3/uL; Monocyte% 6.3 % (0-10); NRBC Flagged by Analyzer 0 % (0-5); Neutrophil # 6.15 X10^3/uL (2.7-7.7); Neutrophil % 58.2 % (47-70); Platelet Count 232 K/mm3 (150-450); RBC Distribution Width CV 12.7 % (11.6-14.6); RBC Distribution Width SD 44.7 fl (35.1-43.9); White Blood Count 10.5 K/mm3 (4.4-11.0)
[2022-04-26 17:06] LABS: Anion Gap 7 (5-15); BUN 19 mg/dL (7-18); BUN/Creat Ratio 18.4 RATIO (10-20); Calcium,Total 9.2 mg/dL (8.5-10.1); Chloride 104 mmol/L (98-107); Creatinine, Serum 1.03 mg/dL (0.70-1.30); EST Glomerular Filtration Rate 75 mL/min (>60); Est Glom Filt Rate - Afr Amer 90 mL/min (>60); Glucose 85 mg/dL (74-106); Potassium 4.5 mmol/L (3.5-5.1); Sodium Level 140 mmol/L (136-145)
== END | disposition home or self-care (01) ==
LOC: BIMLAB 16:03
PROVIDERS: PCP Internal Medicine; Referring Provider Internal Medicine; Visit Provider Internal Medicine
DX: I10 Essential (primary) hypertension (principal); E78.5 Hyperlipidemia, unspecified
CPT/HCPCS: 36415; 80048; 85025

== ENCOUNTER → 2022-06-20 | Outpatient (CLI) | payer MEDICARE, SELFPAY ==
[2022-06-20 10:13] LABS: AST(SGOT) 20 U/L (15-37); Alanine Aminotransfer ALT/SGPT 32 U/L (16-61); Albumin, Serum 3.8 g/dL (3.2-5.0); Alkaline Phosphatase 54 U/L (45-117); Bilirubin, Direct 0.21 mg/dL (0.00-0.30); Cholesterol 147 mg/dL (200); Globulin 2.9 g/dL (2.2-4.2); High Density Lipoprotein 52 mg/dL; Protein, Total 6.7 g/dL (6.4-8.2); Triglycerides 55 mg/dL; Very Low Density Lipoprotein 11 mg/dL (5-40)
== END | disposition home or self-care (01) ==
PROVIDERS: PCP Internal Medicine; Visit Provider Internal Medicine Cardiovascular Disease
DX: E78.00 Pure hypercholesterolemia, unspecified (principal)
CPT/HCPCS: 36415; 80061; 80076

== ENCOUNTER → 2022-07-18 | Outpatient (CLI) | payer MEDICARE, SELFPAY ==
--- NOTE | 2022-07-18 15:57 | STRESSREP ---
Stress Test Report Exercise myocardial perfusion stress test. 76-year-old man with a history of chest pain. Stress protocol: Resting EKG demonstrates sinus bradycardia with a rate of 55 bpm normal intervals are noted resting blood pressure is 128/70 mmHg. The patient exercised according to the regular Aniceto protocol for a total duration of 9 minutes. Patient completed stage III of the Aniceto protocol. The maximum heart rate attained was 123 bpm which was 84% of max impacted heart rate the maximum workload was 10.1 metabolic equivalents. At rest there were no ST or T wave changes noted to suggest ischemia and at peak exercise nonspecific ST changes were noted we did not meet the criteria for ischemia. No clinical angina was noted the test was terminated due to the target heart rate being achieved. Occasional premature ventricular complex as well as a ventricular couplet activity was noted. The peak blood pressure was 160/58 with a rate-pressure part of 19,500. Myocardial perfusion protocol. 9.2 mCi of technetium 99m sestamibi was injected at rest. The patient exercised according to regular Aniceto protocol for a total duration of 9 minutes. The 28.6 mCi of technetium 99m sestamibi was injected at peak exercise. Stress and rest images were reconstructed and compared in the short axis vertical long and horizontal long axis. Gated images were also obtained Perfusion SPECT analysis: Review of the stress images demonstrate normal uptake of tracer noted in all areas of the myocardium. The resting images similar demonstrate normal uptake of tracer noted in all areas of the myocardium. No areas of reversibility are noted suggest ischemia and no previous infarct is noted. Gated SPECT analysis: The gated ejection fraction is noted to be 73%. Conclusion: Normal exercise myocardial perfusion stress test at a high workload. Preserved ejection fraction Good functional aerobic capacity.
== END | disposition home or self-care (01) ==
LOC: CVS 06:26
PROVIDERS: PCP Internal Medicine; Referring Provider Internal Medicine Cardiovascular Disease; Visit Provider Internal Medicine Cardiovascular Disease
DX: I25.10 Atherosclerotic heart disease of native coronary artery without angina pectoris (principal); Z95.5 Presence of coronary angioplasty implant and graft
CPT/HCPCS: 78452; 93017; A9500; A4216

== ENCOUNTER → 2023-01-08 | Outpatient (CLI) | payer MEDICARE, SELFPAY ==
[2023-01-08 07:25] LABS: Absolute Lymphocyte Count 5.99 X10^3/uL (0.83-4.51); Absolute Neutrophil Count 3.3 X10^3/uL (2.0-7.7); Basophil# 0.06 X10^3/uL; Basophil% 0.6 % (0-1); Hematocrit 41.6 % (40-54); Hemoglobin 13.7 g/dL (13.0-16.5); Lymphocyte # 5.99 X10^3/ul (0.83-4.51); Lymphocyte % 60.1 % (19-41); Mean Corp Hgb Conc 32.9 g/dL (32-36); Mean Corpuscular Hgb 31.6 pg (27.0-32.0); Mean Corpuscular Volume 95.9 fL (80-94); Monocyte# 0.48 X10^3/uL; Monocyte% 4.8 % (0-10); NRBC Flagged by Analyzer 0 % (0-5); Neutrophil # 3.31 X10^3/uL (2.7-7.7); Neutrophil % 33.3 % (47-70); POSITIVE DIFFERENTIAL YES; POSITIVE MORPHOLOGY YES; Platelet Count 203 K/mm3 (150-450); RBC Distribution Width CV 12.8 % (11.6-14.6); RBC Distribution Width SD 45.8 fl (35.1-43.9); Red Blood Count 4.34 M/mm3 (4.6-6.2)
[2023-01-08 07:29] LABS: Differential Indicated SCAN CRITERIA MET
[2023-01-08 08:04] LABS: AST(SGOT) 19 U/L (15-37); Alanine Aminotransfer ALT/SGPT 27 U/L (16-61); Albumin, Serum 3.7 g/dL (3.2-5.0); Alkaline Phosphatase 58 U/L (45-117); Bilirubin, Direct 0.14 mg/dL (0.00-0.30); Cholesterol 166 mg/dL (200); Globulin 3.2 g/dL (2.2-4.2); High Density Lipoprotein 60 mg/dL; Protein, Total 6.9 g/dL (6.4-8.2); Triglycerides 101 mg/dL; Very Low Density Lipoprotein 20 mg/dL (5-40)
[2023-01-08 08:08] LABS: Anion Gap 5 (5-15); BUN 22 mg/dL (7-18); BUN/Creat Ratio 21.4 RATIO (10-20); Calcium,Total 9.3 mg/dL (8.5-10.1); Chloride 106 mmol/L (98-107); Creatinine, Serum 1.03 mg/dL (0.70-1.30); EST Glomerular Filtration Rate 75 mL/min (>60); Est Glom Filt Rate - Afr Amer 90 mL/min (>60); Glucose 101 mg/dL (74-106); PSA,Total- Diagnostic < 0.01 ng/mL (0.0-4.0); Potassium 4.3 mmol/L (3.5-5.1); Sodium Level 138 mmol/L (136-145)
[2023-01-08 08:21] LABS: Reactive Lymphocyte 1+
== END | disposition home or self-care (01) ==
LOC: LAB 06:07
PROVIDERS: Internal Medicine Cardiovascular Disease; PCP Internal Medicine; Referring Provider Internal Medicine; Visit Provider Internal Medicine
DX: I10 Essential (primary) hypertension (principal); N40.0 Benign prostatic hyperplasia without lower urinary tract symptoms; E78.00 Pure hypercholesterolemia, unspecified
CPT/HCPCS: 36415; 80048; 80061; 80076; 84153; 85025

== ENCOUNTER → 2023-07-12 | Outpatient (CLI) | payer MEDICARE, SELFPAY ==
[2023-07-12 13:16] LABS: AST(SGOT) 24 U/L (15-37); Alanine Aminotransfer ALT/SGPT 33 U/L (16-61); Alkaline Phosphatase 60 U/L (45-117); Bilirubin, Direct 0.23 mg/dL (0.00-0.30); Cholesterol 177 mg/dL (200); Globulin 2.9 g/dL (2.2-4.2); High Density Lipoprotein 69 mg/dL; Protein, Total 6.9 g/dL (6.4-8.2); Triglycerides 66 mg/dL; Very Low Density Lipoprotein 13 mg/dL (5-40)
[2023-07-12 13:23] LABS: Anion Gap 5 (5-15); BUN 19 mg/dL (7-18); BUN/Creat Ratio 17.6 RATIO (10-20); Calcium,Total 8.9 mg/dL (8.5-10.1); Chloride 105 mmol/L (98-107); Creatinine, Serum 1.08 mg/dL (0.70-1.30); EST Glomerular Filtration Rate 71 mL/min (>60); Est Glom Filt Rate - Afr Amer 85 mL/min (>60); Glucose 108 mg/dL (74-106); Potassium 4.4 mmol/L (3.5-5.1); Sodium Level 138 mmol/L (136-145)
== END | disposition home or self-care (01) ==
LOC: BIMLAB 08:28
PROVIDERS: Internal Medicine Cardiovascular Disease; PCP Internal Medicine; Referring Provider Internal Medicine; Visit Provider Internal Medicine
DX: E78.00 Pure hypercholesterolemia, unspecified (principal); I10 Essential (primary) hypertension
CPT/HCPCS: 36415; 80048; 80061; 80076

== ENCOUNTER → 2023-10-28 | Outpatient (CLI) | payer MEDICARE, SELFPAY ==
--- OUTSIDE RECORDS SUMMARY | 2023-10-28 07:00 | XMS RPT_ITS | CCD ---
Author Name Unknown Address [address] [place] [address] Organization [facility] Care Team Providers Care Etl Analyst Name Role Phone Sg Hernandez Unavailable Unavailable Medications Completed/Discontinued Medications Medication Drug Class(es) Dates Sig (Normalized) Sig (Original) aspirin 81 mg oral tablet (2 sources) Nonsteroidal Anti-inflammatory Drug Start: 03-29-2015 take 1 tablet by mouth once daily ASPIRIN 81 MG TABS One tablet by mouth daily ASPIRIN [id number] Jesenia Weiner RN Problems Active Problems Problem Classification Problem Date Documented Date Episodic/Chronic Cardiac dysrhythmias (2 sources) Paroxysmal ventricular tachycardia; Translations: [Ventricular premature beats] Onset: 03-29-2015 03-29-2015 Chronic Coronary atherosclerosis and other heart disease (2 sources) Atherosclerotic heart disease of [place] coronary artery without angina pectoris; Translations: [Atherosclerotic heart disease of [place] coronary artery without angina pectoris] Onset: 04-11-2015 04-11-2015 Chronic Disorders of lipid metabolism (1 source) Hyperlipidemia; Translations: [Hyperlipidemia, unspecified] Onset: 03-29-2015 03-29-2015 Chronic Unclassified (1 source) Influenza vaccination ; Translations: [Encounter for immunization] Onset: 05-14-2017 05-14-2017 Unclassified (2 sources) Placement of stent in coronary artery ; Translations: [Presence of coronary angioplasty implant and graft] Onset: 04-11-2015 06-28-2016 Unclassified (1 source) Screening - health check; Translations: [Encounter for general adult medical examination without abnormal findings] Onset: 05-14-2017 05-14-2017 Unclassified (1 source) Long-term drug therapy; Translations: [Other [facility] (current) drug therapy] Onset: 06-22-2015 06-22-2015 Past or Other Problems Problem Classification Problem Date Documented Da te Episodic/Chronic Coronary atherosclerosis and other heart disease (1 source) Coronary angioplasty status; Translations: [Coronary angioplasty status] Onset: 04-11-2015 04-11-2015 Episodic Other upper respiratory infections (1 source) Acute upper respiratory infection; Translations: [Acute upper respiratory infection, unspecified] Onset: 05-14-2017 05-14-2017 Episodic Unclassified (3 sources) Abnormal result of cardiovascular function study, unspecified; Translations: [Electrocardiogram abnormal] Onset: 03-31-2015 Resolved: 06-28-2016 06-28-2016 Episodic Unclassified (3 sources) Body mass index (BMI) 25.0-25.9, adult; Translations: [FH: Raised blood lipids] Onset: 04-20-2015 Resolved: 06-28-2016 04-20-2015 Episodic Unclassified (2 sources) Preoperative cardiovascular examination ; Translations: [Encounter for preprocedural cardiovascular examination] Onset: 06-28-2016 Resolved: 12-25-2016 06-28-2016 Results Test Name Value Interpretation Reference Range Facil ity Vital Signs Date Time Vital Sign Value Performing Clinician Misti wang 05-14-2017 12:57-0400 BMI (Body Mass Index) 26.36 kg/m2 [facility] Work Phone: 05-14-2017 12:57-0400 Body Temperature 98.7 [degF] [facility] Work Phone: 05-14-2017 12:57-0400 BP Diastolic 76 mm[Hg] [employer] DeFinis [facility] Work Phone: 05-14-2017 12:57-0400 BP Systolic 116 mm[Hg] [employer] DeFinis [facility] Work Phone: 05-14-2017 12:57-0400 Height 180.34 cm [employer] DeFinis [facility] Work Phone: 05-14-2017 12:57-0400 Pulse (Heart Rate) 69 /min Therio DeFinis [facility] Work Phone: 05-14-2017 12:57-0400 Respiratory Rate 16 /min [facility] Work Phone: 05-14-2017 12:57-0400 Weight 85.73 kg [facility] Work Phone: 06-28-2016 15:07-0400 BSA (Body Surface Area) 2.03 m2 [facility] Work Phone: Procedures Date Procedure Procedure Detail Performing Clinician Start: 06-19-2017 End: 06-19-2017 *Hepatic Function Panel Robb Chowdhury Start: 06-19-2017 End: 06-19-2017 Lipid Dana panel - Serum or Plasma Otilio Hamilton MD Start: 12-25-2016 End: 12-25-2016 SERGIO Hamilton MD Start: 12-25-2016 End: 12-25-2016 Follow Up Appt 6 months Robb Chowdhury Start: 12-19-2016 End: 12-19-2016 *Hepatic Function Panel Robb Chowdhury Start: 12-19-2016 End: 12-19-2016 Lipid Dana panel - Serum or Plasma Otilio Hamilton MD Start: 06-28-2016 End: 06-28-2016 SERGIO Hamilton MD Start: 06-28-2016 End: 06-28-2016 Follow Up Appt 6 months Robb Chowdhury Start: 06-22-2016 End: 06-22-2016 *Hepatic Function Panel Robb Chowdhury Start: 06-22-2016 End: 06-22-2016 Lipid Dana panel - Serum or Plasma Otilio Hamilton MD Start: 12-27-2015 End: 12-27-2015 SERGIO Hamilton MD Start: 12-27-2015 End: 12-27-2015 Follow Up Appt 6 months Robb Chowdhury Start: 12-22-2015 End: 12-26-2015 *Hepatic Function Panel Robb Chowdhury Start: 12-22-2015 End: 12-26-2015 Lipid 1996 panel - Serum or Plasma Otilio Hamilton MD Start: 06-28-2015 End: 06-28-2015 MICROBIOLOGICAL LAB TECHNICIAN Otilio Hamilton MD Start: 06-28-2015 End: 06-29-2015 Documentation of current medications Otilio Hamilton MD Start: 06-28-2015 End: 06-28-2015 Follow Up Appt 6 months Robb Chowdhury Start: 04-20-2015 End: 06-22-2015 *Hepatic Function Panel Robb Chowdhury Start: 04-20-2015 End: 04-21-2015 Documentation of current medications Otilio Hamilton MD Start: 04-20-2015 End: 06-22-2015 Lipid 1996 panel - Serum or Plasma Otilio Hamilton MD Start: 04-08-2015 End: 04-08-2015 Left Heart Cath Otilio Hamilton MD Start: 04-04-2015 End: 04-05-2015 *BMP Otilio Hamilton MD Start: 04-04-2015 End: 04-05-2015 aPTT in Platelet poor plasma by Coagulation assay Otilio Hamilton MD Start: 04-04-2015 End: 04-05-2015 CBC W Auto Differential panel - Blood Otilio Hamilton MD Start: 04-04-2015 End: 04-06-2015 Chest x-ray Otilio Hamilton MD Start: 04-04-2015 End: 04-05-2015 INR in Platelet poor plasma by Coagulation assay Otilio Hamilton MD Start: 03-30-2015 End: 03-30-2015 MICROBIOLOGICAL LAB TECHNICIAN Otilio Hmailton MD Start: 03-30-2015 End: 03-31-2015 Documentation of current medications Otilio Hamilton MD Start: 03-30-2015 End: 03-30-2015 Ecg routine ecg w/least 12 lds w/i&r Otilio Hamilton MD Start: 03-30-2015 End: 03-30-2015 Follow Up Appt 3 months Robb Chowdhury Start: 03-30-2015 End: 04-06-2015 Nuclear stress test -exercise Otilio Hamilton MD Plan of Treatment Date Care Activity Detail Author Start: 06-19-2018 End: 06-21-2017 *Hepatic Function Panel *Hepatic Function Panel [facility] Work Phone: Start: 06-19-2018 End: 06-21-2017 Lipid panel [AGGREGATE] *Lipid Profile CC PCP [facility] Work Phone: Start: 11-13-2017 End: 11-13-2017 Appointment Appointment [facility] Work Phone: Start: 06-25-2017 End: 06-25-2017 Appointment Appointment [facility] Work Phone: Start: 06-19-2017 End: 06-19-2017 *Hepatic Function Panel *Hepatic Function Panel [facility] Work Phone: Start: 06-19-2017 End: 06-19-2017 Lipid panel [AGGREGATE] *Lipid Profile CC PCP [facility] Work Phone: Start: 05-14-2017 End: 05-14-2017 Follow Up Appt 6 months Follow Up Appt 6 months [facility] Work Phone: Start: 05-14-2017 End: 05-14-2017 Us abdominal aorta real time screen study aaa Ultrasound, abdominal aorta, screening study for abdominal aortic aneurysm (AAA) [facility] Work Phone: Start: 12-25-2016 End: 12-25-2016 MICROBIOLOGICAL LAB TECHNICIAN MICROBIOLOGICAL LAB TECHNICIAN [facility] Work Phone: Start: 12-25-2016 End: 12-25-2016 Follow Up Appt 6 months Follow Up Appt 6 months [facility] Work Phone: Start: 12-19-2016 End: 12-19-2016 *Hepatic Function Panel *Hepatic Function Panel [facility] Work Phone: Start: 12-19-2016 End: 12-19-2016 Lipid panel [AGGREGATE] *Lipid Profile CC PCP [facility] Work Phone: Start: 06-28-2016 End: 06-28-2016 MICROBIOLOGICAL LAB TECHNICIAN MICROBIOLOGICAL LAB TECHNICIAN [facility] Work Phone: Start: 06-28-2016 End: 06-28-2016 Follow Up Appt 6 months Follow Up Appt 6 months [facility] Work Phone: Start: 06-22-2016 End: 06-22-2016 *Hepatic Function Panel *Hepatic Function Panel [facility] Work Phone: Start: 06-22-2016 End: 06-22-2016 Lipid panel [AGGREGATE] *Lipid Profile CC PCP [facility] Work Phone: Start: 12-27-2015 End: 12-27-2015 MICROBIOLOGICAL LAB TECHNICIAN MICROBIOLOGICAL LAB TECHNICIAN [facility] Work Phone: Start: 12-27-2015 End: 12-27-2015 Follow Up Appt 6 months Follow Up Appt 6 months [facility] Work Phone: Start: 12-22-2015 End: 12-26-2015 *Hepatic Function Panel *Hepatic Function Panel [facility] Work Phone: Start: 12-22-2015 End: 12-26-2015 Lipid panel [AGGREGATE] *Lipid Profile CC PCP [facility] Work Phone: Start: 06-28-2015 End: 06-28-2015 MICROBIOLOGICAL LAB TECHNICIAN MICROBIOLOGICAL LAB TECHNICIAN [facility] Work Phone: Start: 06-28-2015 End: 06-28-2015 Follow Up Appt 6 months Follow Up Appt 6 months [facility] Work Phone: Start: 04-20-2015 End: 06-22-2015 *Hepatic Function Panel *Hepatic Function Panel [facility] Work Phone: Start: 04-20-2015 End: 04-20-2015 Cardiac Rehab [facility] Work Phone: Start: 04-20-2015 End: 04-20-2015 MICROBIOLOGICAL LAB TECHNICIAN MICROBIOLOGICAL LAB TECHNICIAN [facility] Work Phone: Start: 04-20-2015 End: 04-20-2015 Ecg routine ecg w/least 12 lds w/i&r EKG (In office) [facility] Work Phone: Start: 04-20-2015 End: 04-20-2015 Follow Up Appt 3 months Follow Up Appt 3 months [facility] Work Phone: Start: 04-20-2015 End: 06-22-2015 Lipid panel [AGGREGATE] *Lipid Profile CC PCP [facility] Work Phone: Start: 04-18-2015 End: 04-12-2015 [facility] [address], [address] [facility] Work Phone: Start: 04-08-2015 End: 04-04-2015 Left Heart Cath Left Heart Cath [facility] Work Phone: Start: 04-04-2015 End: 04-05-2015 *BMP *BMP [facility] Work Phone: Start: 04-04-2015 End: 04-05-2015 aPTT *PTT-Partial Thromboplastin Time [facility] Work Phone: Start: 04-04-2015 End: 04-05-2015 CBC W Auto Differential panel - Blood *CBC without Diff [facility] Work Phone: Start: 04-04-2015 End: 04-06-2015 Chest x-ray X-Ray, Chest, PA & Lateral [facility] Work Phone: Start: 04-04-2015 End: 04-05-2015 INR Coag RelTime (PPP) *PT/INR [facility] Work Phone: Start: 03-30-2015 End: 03-30-2015 MICROBIOLOGICAL LAB TECHNICIAN MICROBIOLOGICAL LAB TECHNICIAN [facility] Work Phone: Start: 03-30-2015 End: 03-30-2015 Ecg routine ecg w/least 12 lds w/i&r EKG (In office) [facility] Work Phone: Start: 03-30-2015 End: 03-30-2015 Follow Up Appt 3 months Follow Up Appt 3 months [facility] Work Phone: Start: 03-30-2015 End: 03-30-2015 Nuclear stress test -exercise Nuclear stress test -exercise [facility] Work Phone: Patient Education [facility] Work Phone: Immunizations Immunization Date Immunization Notes Care Provider Karla haney 05-14-2017 Seasonal trivalent influenza vaccine, adjuvanted, preservative free Sg Hernandez [facility] Work Phone: Summary Purpose Family History No Family History Records Found Advance Directives No Advanced Directives Records Found Additional Source Comments (unrecognized sect ion and content) No Status Records Found INFORMATION SOURCE (unrecogn ized section and content) FOR RECORDS PERTAINING TO PATIENTS WHO ARE OR HAVE BEEN ENROLLED IN A CHEMICAL DEPENDENCY/SUBSTANCEABUSE PROGRAM, SOME INFORMATION MAY BE OMITTED. This clinical summary was aggregated from multiple sources. Caution should be exercised in using it in the provision of clinical care. This summary normalizes information from multiple sources, and as a consequence, information in this document may materially change the coding, format and clinical context of patient data. In addition, data may be omitted in some cases. CLINICAL DECISIONS SHOULD BE BASED ON THE PRIMARY CLINICAL RECORDS. [facility]. provides no warranty or guarantee of the accuracy or completeness of information in this document.
== END | disposition home or self-care (01) ==
LOC: PSN 06:57
PROVIDERS: PCP Internal Medicine; Referring Provider Nurse Practitioner Gerontology; Visit Provider Nurse Practitioner Gerontology
DX: R00.1 Bradycardia, unspecified (principal)
CPT/HCPCS: 93225; 93226

== ENCOUNTER → 2024-01-15 | Outpatient (CLI) | payer MEDICARE, SELFPAY ==
[2024-01-15 12:24] LABS: Absolute Lymphocyte Count 5.55 X10^3/uL (0.83-4.51); Absolute Neutrophil Count 4.5 X10^3/uL (2.0-7.7); Basophil# 0.06 X10^3/uL; Basophil% 0.6 % (0-1); Eosinophil# 0.04 X10^3/uL; Eosinophils% 0.4 % (0-5); Hematocrit 40.4 % (40-54); Hemoglobin 13.6 g/dL (13.0-16.5); Lymphocyte # 5.55 X10^3/ul (0.83-4.51); Lymphocyte % 51.6 % (19-41); Mean Corp Hgb Conc 33.7 g/dL (32-36); Mean Corpuscular Hgb 31.9 pg (27.0-32.0); Mean Corpuscular Volume 94.8 fL (80-94); Mean Platelet Vol. 9.1 fl (6.2-12.0); Monocyte# 0.54 X10^3/uL; NRBC Flagged by Analyzer 0 % (0-5); Neutrophil # 4.53 X10^3/uL (2.7-7.7); POSITIVE DIFFERENTIAL YES; POSITIVE MORPHOLOGY YES; Platelet Count 206 K/mm3 (150-450); RBC Distribution Width CV 12.5 % (11.6-14.6); RBC Distribution Width SD 43.2 fl (35.1-43.9); Red Blood Count 4.26 M/mm3 (4.6-6.2); White Blood Count 10.8 K/mm3 (4.4-11.0)
[2024-01-15 12:26] LABS: Differential Indicated SCAN CRITERIA MET
[2024-01-15 12:45] LABS: Atypical Lymphocyte 1+ %
[2024-01-15 12:54] LABS: Cholesterol 169 mg/dL (200); High Density Lipoprotein 70 mg/dL; Triglycerides 59 mg/dL; Very Low Density Lipoprotein 12 mg/dL (5-40)
[2024-01-15 14:23] LABS: ALB/GLOB Ratio 1.4 RATIO (0.9-2.4); AST(SGOT) 23 U/L (15-37); Alanine Aminotransfer ALT/SGPT 30 U/L (16-61); Albumin, Serum 3.8 g/dL (3.2-5.0); Alkaline Phosphatase 48 U/L (45-117); Anion Gap 6 (5-15); BUN 22 mg/dL (7-18); BUN/Creat Ratio 21.6 RATIO (10-20); Bilirubin, Direct 0.27 mg/dL (0.00-0.30); Calcium,Total 8.9 mg/dL (8.5-10.1); Chloride 101 mmol/L (98-107); Creatinine, Serum 1.02 mg/dL (0.70-1.30); EST Glomerular Filtration Rate 75 mL/min (>60); Est Glom Filt Rate - Afr Amer 91 mL/min (>60); Globulin 2.7 g/dL (2.2-4.2); Glucose 104 mg/dL (74-106); Potassium 4.5 mmol/L (3.5-5.1); Protein, Total 6.5 g/dL (6.4-8.2); Sodium Level 133 mmol/L (136-145)
== END | disposition home or self-care (01) ==
LOC: BIMLAB 09:57
PROVIDERS: Internal Medicine Cardiovascular Disease; PCP Internal Medicine; Visit Provider Internal Medicine
DX: E78.00 Pure hypercholesterolemia, unspecified (principal); I10 Essential (primary) hypertension
CPT/HCPCS: 36415; 80053; 80061; 82248; 85025

== ENCOUNTER → 2024-02-12 | Outpatient (CLI) | payer MEDICARE, SELFPAY ==
[2024-02-12 09:22] LABS: PSA,Total- Diagnostic < 0.01 ng/mL (0.0-4.0)
== END | disposition home or self-care (01) ==
LOC: LAB 08:16
PROVIDERS: PCP Internal Medicine; Referring Provider Urology; Visit Provider Urology
DX: R97.21 Rising PSA following treatment for malignant neoplasm of prostate (principal)
CPT/HCPCS: 36415; 84153

== ENCOUNTER → 2024-08-31 | Outpatient (CLI) | payer MEDICARE, SELFPAY ==
[2024-08-31 12:26] LABS: Absolute Lymphocyte Count 5.83 X10^3/uL (0.83-4.51); Absolute Neutrophil Count 9.3 X10^3/uL (2.0-7.7); Basophil# 0.08 X10^3/uL; Basophil% 0.5 % (0-1); Eosinophil# 0.04 X10^3/uL; Eosinophils% 0.2 % (0-5); Hematocrit 38.1 % (40-54); Hemoglobin 12.2 g/dL (13.0-16.5); Lymphocyte # 5.83 X10^3/ul (0.83-4.51); Mean Corpuscular Hgb 30.6 pg (27.0-32.0); Mean Corpuscular Volume 95.5 fL (80-94); Monocyte# 0.89 X10^3/uL; Monocyte% 5.5 % (0-10); NRBC Flagged by Analyzer 0 % (0-5); Neutrophil # 9.29 X10^3/uL (2.7-7.7); Neutrophil % 57.3 % (47-70); POSITIVE DIFFERENTIAL YES; Platelet Count 346 K/mm3 (150-450); RBC Distribution Width CV 13.9 % (11.6-14.6); RBC Distribution Width SD 48.9 fl (35.1-43.9); Red Blood Count 3.99 M/mm3 (4.6-6.2); White Blood Count 16.2 K/mm3 (4.4-11.0)
[2024-08-31 12:35] LABS: Differential Indicated SCAN CRITERIA MET
[2024-08-31 12:44] LABS: ALB/GLOB Ratio 0.7 RATIO (0.9-2.4); AST(SGOT) 152 U/L (15-37); Alanine Aminotransfer ALT/SGPT 169 U/L (16-61); Albumin, Serum 2.8 g/dL (3.2-5.0); Alkaline Phosphatase 113 U/L (45-117); Anion Gap 5 (5-15); BUN 40 mg/dL (7-18); BUN/Creat Ratio 21.4 RATIO (10-20); Chloride 104 mmol/L (98-107); Creatinine, Serum 1.87 mg/dL (0.70-1.30); EST Glomerular Filtration Rate 37 mL/min (>60); Est Glom Filt Rate - Afr Amer 45 mL/min (>60); Globulin 4.1 g/dL (2.2-4.2); Glucose 108 mg/dL (74-106); PSA,Total - Annual Screen < 0.01 ng/mL (0.00-4.00); Potassium 3.8 mmol/L (3.5-5.1); Protein, Total 6.9 g/dL (6.4-8.2); Sodium Level 135 mmol/L (136-145)
[2024-08-31 12:54] LABS: Cholesterol 114 mg/dL (200); High Density Lipoprotein 22 mg/dL; Triglycerides 119 mg/dL; Very Low Density Lipoprotein 24 mg/dL (5-40)
[2024-08-31 13:06] LABS: Platelet Estimate ADEQUATE (ADEQ)
== END | disposition home or self-care (01) ==
LOC: BIMLAB 09:14
PROVIDERS: Nurse Practitioner Gerontology; PCP Internal Medicine; Referring Provider Internal Medicine; Visit Provider Internal Medicine
DX: N40.0 Benign prostatic hyperplasia without lower urinary tract symptoms (principal); R19.7 Diarrhea, unspecified; E78.00 Pure hypercholesterolemia, unspecified
CPT/HCPCS: 36415; 80053; 80061; 82248; 83630; 84153; 85025; 87506; G0103

== ENCOUNTER → 2024-09-01 | Outpatient (CLI) | payer MEDICARE, SELFPAY ==
[2024-09-02 13:07] LABS: CMV Acute Antibody IgM < 30.0 AU/mL (0.0-29.9); EBV Acute VCA IgM < 36.0 U/mL (0.0-35.9); EBV-VCA IgG 99.7 U/mL (0.0-17.9)
== END | disposition home or self-care (01) ==
LOC: BIMLAB 10:06
PROVIDERS: PCP Internal Medicine; Referring Provider Internal Medicine; Visit Provider Internal Medicine
DX: R19.7 Diarrhea, unspecified (principal); R74.8 Abnormal levels of other serum enzymes
CPT/HCPCS: 36415; 86645; 86664; 86665

== ENCOUNTER → 2024-09-07 | Outpatient (CLI) | payer MEDICARE, SELFPAY ==
[2024-09-07 10:42] LABS: Bacteria 0 SEEN /hpf (None Seen); Mucous, Urine 0 SEEN /hpf (<or=2+); Squamous Epithelial Cells - UA 0 SEEN /hpf (0-5)
[2024-09-07 12:12] LABS: Color, Urine Yellow (Yellow); Glucose, Dipstick Normal (Normal); Ketone-Dipstick Negative (Negative); Leukocyte Esterase-Dipstick 100 /ul (Negative); Nitrite-Dipstick Negative (Negative); Occult Blood-Urine 250 /ul (Negative); Protein-Dipstick 30 mg/dl (Negative); Urine Bilirubin Dipstick Negative (Negative); Urine Clarity Sl. Cloudy (Clear); Urine Urobilinogen Normal (Normal)
[2024-09-07 12:21] LABS: Absolute Lymphocyte Count 5.17 X10^3/uL (0.83-4.51); Absolute Neutrophil Count 5.9 X10^3/uL (2.0-7.7); Basophil# 0.08 X10^3/uL; Basophil% 0.7 % (0-1); Eosinophil# 0.08 X10^3/uL; Eosinophils% 0.7 % (0-5); Hematocrit 37.2 % (40-54); Hemoglobin 11.7 g/dL (13.0-16.5); Lymphocyte # 5.17 X10^3/ul (0.83-4.51); Lymphocyte % 44.6 % (19-41); Mean Corp Hgb Conc 31.5 g/dL (32-36); Mean Corpuscular Hgb 30.4 pg (27.0-32.0); Mean Corpuscular Volume 96.6 fL (80-94); Mean Platelet Vol. 9.3 fl (6.2-12.0); Monocyte# 0.34 X10^3/uL; Monocyte% 2.9 % (0-10); NRBC Flagged by Analyzer 0 % (0-5); Neutrophil # 5.87 X10^3/uL (2.7-7.7); Neutrophil % 50.8 % (47-70); POSITIVE DIFFERENTIAL YES; Platelet Count 427 K/mm3 (150-450); RBC Distribution Width CV 13.7 % (11.6-14.6); RBC Distribution Width SD 48.9 fl (35.1-43.9); Red Blood Count 3.85 M/mm3 (4.6-6.2); White Blood Count 11.6 K/mm3 (4.4-11.0)
[2024-09-07 12:23] LABS: Differential Indicated SCAN CRITERIA MET
[2024-09-07 12:43] LABS: Atypical Lymphocyte RARE %; Reactive Lymphocyte RARE
[2024-09-07 12:52] LABS: Red Blood Cells-Urine 5-10 SEEN /hpf (0-5); White Blood Cells 5-10 SEEN /hpf (0-5)
[2024-09-07 13:08] LABS: ALB/GLOB Ratio 0.8 RATIO (0.9-2.4); AST(SGOT) 64 U/L (15-37); Alanine Aminotransfer ALT/SGPT 119 U/L (16-61); Albumin, Serum 3.1 g/dL (3.2-5.0); Alkaline Phosphatase 121 U/L (45-117); Anion Gap 5 (5-15); BUN 25 mg/dL (7-18); BUN/Creat Ratio 22.1 RATIO (10-20); Calcium,Total 8.7 mg/dL (8.5-10.1); Chloride 106 mmol/L (98-107); Creatinine, Serum 1.13 mg/dL (0.70-1.30); EST Glomerular Filtration Rate 67 mL/min (>60); Est Glom Filt Rate - Afr Amer 81 mL/min (>60); Globulin 3.7 g/dL (2.2-4.2); Glucose 94 mg/dL (74-106); Potassium 4.9 mmol/L (3.5-5.1); Protein, Total 6.8 g/dL (6.4-8.2); Sodium Level 137 mmol/L (136-145)
== END | disposition home or self-care (01) ==
LOC: BIMLAB 08:17
PROVIDERS: PCP Internal Medicine; Referring Provider Internal Medicine; Visit Provider Internal Medicine
DX: R74.8 Abnormal levels of other serum enzymes (principal); R82.998 Other abnormal findings in urine; D72.829 Elevated white blood cell count, unspecified
CPT/HCPCS: 36415; 80053; 81001; 85025; 87086; 87088

== ENCOUNTER → 2024-09-10 | Outpatient (CLI) | payer MEDICARE, SELFPAY ==
--- NOTE | 2024-09-10 15:38 | CT_ITS ---
STUDY: CT ABDOMEN AND PELVIS WITHOUT CONTRAST REASON FOR EXAM: Male, 78 years old. GROSS HEMATURIA. History of prostate cancer. Prior prostatectomy. RADIATION DOSAGE (If Supplied By Facility): CTDIvol = ( 18.18 ) mGy, DLP = ( 877.36 ) mGycm TECHNIQUE: Transaxial images were obtained from the dome of the diaphragm to the symphysis pubis without oral contrast, and without intravenous contrast. Sagittal and coronal images were reconstructed. Individualized dose optimization techniques were used for this CT. COMPARISON: None. FINDINGS: The visualized lung bases are unremarkable. Coronary artery calcification. Normal liver. Normal gallbladder and extrahepatic biliary system. There are multiple benign calcified granulomata of the spleen. Normal pancreas. Normal bilateral adrenal glands. Nonspecific bilateral perinephric stranding. Normal visualized stomach. Normal small intestine. Normal colon. The appendix is visualized and appears normal. There is diffuse atherosclerotic calcification of the abdominal aorta, without a demonstrated aneurysm. Normal inferior vena cava. There is borderline retroperitoneal lymphadenopathy with enlarged nodes no greater than 10mm in the short axis diameter. Diffuse bladder wall thickening. Small caliber bladder. Status post prostatectomy. Prior left inguinal hernia repair with a mesh. There are diffuse degenerative changes of the visualized lumbar spine. Grade 1 anterolisthesis of L4 on L5. CT/Abdomen/Pelvis without Cont IMPRESSION: Status post prostatectomy. Diffuse bladder wall thickening. Nonspecific bilateral perinephric stranding. Electronically Signed: Edgard Amin MD at 15:59 EST ,
== END | disposition home or self-care (01) ==
LOC: CT 15:35
PROVIDERS: PCP Internal Medicine; Referring Provider Urology; Visit Provider Urology
DX: R31.0 Gross hematuria (principal)

== ENCOUNTER → 2024-09-10 | Outpatient (CLI) | payer MEDICARE, SELFPAY ==
[2024-09-10 12:13] LABS: Absolute Lymphocyte Count 5.58 X10^3/uL (0.83-4.51); Absolute Neutrophil Count 7.2 X10^3/uL (2.0-7.7); Basophil% 0.7 % (0-1); Eosinophil# 0.09 X10^3/uL; Eosinophils% 0.6 % (0-5); Hematocrit 37.9 % (40-54); Hemoglobin 12.3 g/dL (13.0-16.5); Lymphocyte # 5.58 X10^3/ul (0.83-4.51); Lymphocyte % 39.8 % (19-41); Mean Corp Hgb Conc 32.5 g/dL (32-36); Mean Corpuscular Hgb 31.5 pg (27.0-32.0); Mean Corpuscular Volume 96.9 fL (80-94); Mean Platelet Vol. 9.1 fl (6.2-12.0); Monocyte# 1.05 X10^3/uL; Monocyte% 7.5 % (0-10); NRBC Flagged by Analyzer 0 % (0-5); Neutrophil # 7.17 X10^3/uL (2.7-7.7); Neutrophil % 51.1 % (47-70); POSITIVE DIFFERENTIAL YES; Platelet Count 375 K/mm3 (150-450); RBC Distribution Width CV 13.8 % (11.6-14.6); RBC Distribution Width SD 49.1 fl (35.1-43.9); Red Blood Count 3.91 M/mm3 (4.6-6.2)
[2024-09-10 12:21] LABS: Differential Indicated SCAN CRITERIA MET
[2024-09-10 12:26] LABS: AST(SGOT) 36 U/L (15-37); Alanine Aminotransfer ALT/SGPT 81 U/L (16-61); Albumin, Serum 3.3 g/dL (3.2-5.0); Alkaline Phosphatase 102 U/L (45-117); Anion Gap 6 (5-15); BUN 22 mg/dL (7-18); BUN/Creat Ratio 21.2 RATIO (10-20); Calcium,Total 9.2 mg/dL (8.5-10.1); Chloride 104 mmol/L (98-107); Creatinine, Serum 1.04 mg/dL (0.70-1.30); EST Glomerular Filtration Rate 73 mL/min (>60); Est Glom Filt Rate - Afr Amer 89 mL/min (>60); Globulin 3.4 g/dL (2.2-4.2); Glucose 103 mg/dL (74-106); Protein, Total 6.7 g/dL (6.4-8.2); Sodium Level 138 mmol/L (136-145)
[2024-09-10 13:05] LABS: Platelet Estimate A (ADEQ)
== END | disposition home or self-care (01) ==
LOC: BIMLAB 08:10
PROVIDERS: PCP Internal Medicine; Referring Provider Internal Medicine; Visit Provider Internal Medicine
DX: R74.8 Abnormal levels of other serum enzymes (principal)

== ENCOUNTER → 2025-02-10 | Outpatient (CLI) | payer MEDICARE, SELFPAY ==
[2025-02-10 18:10] LABS: PSA,Total- Diagnostic < 0.02 ng/mL (0.00-4.00)
--- OUTSIDE RECORDS SUMMARY | 2025-02-10 22:40 | XMS RPT_ITS | CCD ---
Author Organization [facility] Care Team Providers Care Tester [employer] Name Role Phone Sg Hernandez Y Unavailable Unavailable Dr. Ynes Guzman Primary Care Provider 1(33 0) Dr. Ynes Guzman Attending Provider 1(330)2 Dr. Ynes Guzman Referring Provider 1(330)2 Dr. Ynes Guzman Primary Care Provider 1(33 0) Dr. Ynes Guzman Referring Provider 1(330)2 Dr. Aniceto Stephenson Attending Provider Dr. Ynes Guzman Attending Provider 1(330)2 Dr. Otilio Hamilton Attending Provider 1(330)- Dr. Ynes Guzman Primary Care Provider 1(33 0) Dr. Ynes Guzman Attending Provider 1(330)2 Dr. Ynes Guzman Referring Provider 1(330)2 Dr. Otilio Hamilton Attending Provider 1(330)- Dr. Otilio Hamilton Referring Provider 1(330)- Dr. Otliio Hamilton Other Provider Dr. Ynes Guzman Primary Care Provider 1(33 0) Dr. Ynes Guzman Attending Provider 1(330)2 Dr. Ynes Guzman Referring Provider 1(330)2 Nate BURR, CHRIS Perkins Attending Provider Alejandro Alamo Referring Unavailable Cally Alejandro Teran Attending Unavailable Oleghe, Efewongbe Primary Care Unavailable Oleghe, Efewongbe Primary Care Unavailable CallyAlejandroSlade Referring Unavailable Cally Alejandro Teran Attending Unavailable Oleghe, Efewongbe Primary Care Unavailable Oleghe, Efewongbe Attending Unavailable Oleghe, Efewongbe Primary Care Unavailable Oleghe, Efewongbe Referring Unavailable Oleghe, Efewongbe Attending Unavailable Oleghe, Efewongbe Referring Unavailable Jordan Novak Attending Unavailable Oleghe, Efewongbe Primary Care Unavailable Oleghe, Efewongbe Primary Care Unavailable Oleghe, Efewongbe Referring Unavailable Annabelle Harris Attending Unavailable Oleghe, Efewongbe Primary Care Unavailable Oleghe, Efewongbe Referring Unavailable Felicity Jewell Attending Unavailabl e Oleghe, Efewongbe Primary Care Unavailable Oleghe, Efewongbe Referring Unavailable Amber Martinez NP Attending Unavailable Oleghe, Efewongbe Primary Care Unavailable Oleghe, Efewongbe Referring Unavailable Oleghe, Efewongbe Attending Unavailable Oleghe, Efewongbe Primary Care Unavailable Oleghe, Efewongbe Referring Unavailable Maddie Sullivan NP Attending Unavailable Oleghe, Efewongbe Primary Care Unavailable Oleghe, Efewongbe Referring Unavailable Zack Nix NP Attending Unavailable Oleghe, Efewongbe Attending Unavailable Oleghe, Efewongbe Referring Unavailable Oleghe, Efewongbe Primary Care Unavailable Oleghe, Efewongbe Attending Unavailable Oleghe, Efewongbe Referring Unavailable Oleghe, Efewongbe Primary Care Unavailable Oleghe, Efewongbe Attending Unavailable Oleghe, Efewongbe Primary Care Unavailable Oleghe, Efewongbe Referring Unavailable Oleghe, Efewongbe Attending Unavailable Oleghe, Efewongbe Primary Care Unavailable Oleghe, Efewongbe Referring Unavailable Medications Current Medications Medication Drug Class(es) Dates Sig (Normalized) Sig (Original) amLODIPine 5 mg oral tablet (20 sources) Dihydropyridine Calcium Channel Frederic Start: 10-24-2023 take 5 mg by mouth twice daily Amlodipine Active 5 MG PO TWICE A DAY 180 October 24, 2023 2:20pm Start: 03-17-2021 End: 10-24-2023 take 5 mg by mouth once daily Amlodipine Discontinued 5 MG PO DAILY October 18, 2023 11:49am October 24, 2023 2:21pm aspirin 81 mg chewable tablet (8 sources) Nonsteroidal Anti-inflammatory Drug Start: 04-06-2015 take 81 mg by mouth once daily Aspirin Active 81 MG PO DAILY@0800 April 05, 2015 11:00pm Start: 03-29-2015 take 1 tablet by veto th once daily ASPIRIN 81 MG TABS One tablet by mouth daily ASPIRIN [id number] Jesenia Weiner RN Start: 03-29-2015 take 1 tablet by veto th once daily ASPIRIN EC 81 MG TBEC One tablet by mouth daily ASPIRIN [id number] Sg Ross Sherrynathen atorvastatin 80 mg oral tablet (20 sources) HMG-CoA Reductase Inhibitor Start: 08-01-2017 End: 10-18-2023 Atorvastatin Active 0 .ROUTE .COMPLEX October 18, 2023 11:49am TAKE 1 TABLET DAILY Start: 04-06-2015 End: 08-01-2017 take 80 mg by mouth at bedtime Atorvastatin Discontinu ed 80 MG PO AT BEDTIME April 05, 2015 11:00pm August 01, 2017 12:19pm Start: 03-29-2015 take 1 tablet by veto th at bedtime LIPITOR 80 MG TABS One tablet by mouth at bedtime ATORVASTATIN CALCIUM [id number] Otilio Hamilton MD Start: 03-29-2015 take 1 tablet by veto th once daily LIPITOR 10 MG TABS One tablet by mouth daily ATORVASTATIN CALCIUM [id number] Jesenia Weiner RN clopidogrel 75 mg oral tablet (20 sources) [id number] Platelet Inhibitor Start: 04-08-2015 End: 10-18-2023 take 1 tablet by mouth once daily Clopidogrel (Plavix) 75 mg tablet Active 75 MG PO DAILY October 18, 2023 11:48am losartan potassium 100 mg oral tablet (20 sources) Angiotensin 2 Receptor Frederic Start: 09-05-2018 End: 10-18-2023 take 100 mg by mouth once daily Losartan Active 100 MG PO DAILY October 18, 2023 11:48am Start: 07-03-2018 End: 09-05-2018 take 50 mg by mouth twice daily Losartan Discontinued 50 MG PO TWICE A DAY 180 July 03, 2018 11:13am September 05, 2018 9:52am Start: 11-25-2017 End: 07-03-2018 take 50 mg by mouth once daily Losartan Discontinued 5 0 MG PO daily 180 June 11, 2018 10:25am July 03, 2018 11:16am Start: 10-01-2017 End: 11-25-2017 take 50 mg by mouth once daily Losartan Discontinued 5 0 MG PO DAILY October 01, 2017 4:45pm November 25, 2017 7:38am Start: 04-11-2015 End: 10-01-2017 take 25 mg by mouth once daily Losartan Discontinued 2 5 MG PO DAILY January 17, 2017 11:00pm October 01, 2017 4:46pm 24 hr metoprolol succinate 25 mg extended release oral tablet (20 sources) beta-Adrenergic Frederic Start: 10-18-2023 take 25 mg by mouth once daily Metoprolol Succinate Active 25 MG PO DAILY 90 October 18, 2023 11:48am Start: 12-27-2021 End: 10-18-2023 take 50 mg by mouth once daily Metoprolol Succinate Di scontinued 50 MG PO DAILY 90 September 26, 2023 9:04am October 18, 2023 11:49am Start: 03-22-2021 End: 12-27-2021 take 50 mg by mouth once daily Metoprolol Succinate Di scontinued 50 MG PO DAILY 180 August 23, 2021 10:46am December 27, 2021 7:50am Start: 11-18-2018 End: 03-22-2021 take 25 mg by mouth once daily Metoprolol Succinate Di scontinued 25 MG PO DAILY 90 October 24, 2020 10:23am March 22, 2021 6:46am Start: 11-07-2018 End: 11-18-2018 take 12.5 mg by mouth once daily Metoprolol Succinate Discontinued 12.5 MG PO DAILY 90 November 07, 2018 9:10am November 18, 2018 7:39am Start: 12-27-2015 End: 11-07-2018 take 25 mg by mouth once daily Metoprolol Succinate Di scontinued 25 MG PO DAILY 90 March 04, 2018 1:58pm November 07, 2018 9:11am Start: 04-11-2015 End: 12-27-2015 take 1 tablet by mouth twice daily METOPROLOL TARTRATE 25 MG TABS One tablet by mouth twice daily METOPROLOL TARTRATE [id number] Otilio Hamilton MD Multivitamin (Multiple Vitamins) tablet (6 sources) Start: 06-09-2021 take 1 tablet by mouth once daily Multivitamin (Multiple Vitamins) tablet Active 1 TABLET PO DAILY June 09, 2021 8:18am Start: 06-09-2021 End: 07-12-2023 take 1 tablet by mouth once daily Multivitamin (Multiple Vitamins) tablet Discontinued 1 TABLET PO DAILY June 08, 2021 11:00pm July 12, 2023 8:05am Start: 06-09-2021 take 1 tablet by veto th once daily Multivitamin (Multiple Vitamins) tablet Active 1 TABLET PO DAILY June 08, 2021 11:00pm Start: 06-09-2021 take 1 tablet by veto th once daily Multivitamin (Multiple Vitamins) tablet Active 1 TABLET PO DAILY June 09, 2021 12:00am Completed/Discontinued Medications Medication Drug Class(es) Dates Sig (Normalized) Sig (Original) acetaminophen 325 mg / oxyCODONE hydrochloride 5 mg oral tablet (6 sources) Opioid Agonist Start: 01-22-2017 End: 08-01-2017 take 1 tablet by mouth every four hours as needed Oxycodone-Acetami nophen Discontinued 1 - 2 TABLET PO EVERY 4 HOURS NEEDED January 21, 2017 11:00pm August 01, 2017 12:21pm amoxicillin 875 mg / clavulanate 125 mg oral tablet (6 sources) Penicillin-class Antibacterial Start: 08-01-2017 End: 11-13-2017 take 1 tablet by mouth twice daily Amoxicillin-Pot Clavulanate Discontinued 1 TABLET PO TWICE A DAY August 01, 2017 12:00am November 13, 2017 7:09am atovaquone 250 mg / proguanil hydrochloride 100 mg oral tablet (6 sources) Antimalarial, Antiprotozoal Start: 03-05-2018 End: 06-11-2018 take 1 tablet by mouth once daily Atovaquone-Progua nil (Malarone) 250-100 mg tablet Discontinued 0 PO .COMPLEX March 04, 2018 11:00pm June 11, 2018 9:39am take 1 tab once daily x2days before exposure, during time in area, and x7 days after leaving area PO avanafil 200 mg oral tablet (2 sources) Phosphodiesterase 5 Inhibitor Start: 03-29-2015 End: 04-20-2015 take 1 tablet by mouth once daily as needed STENDRA 200 MG TABS One tablet by mouth daily as needed AVANAFIL [id number] Jesenia Weiner RN azithromycin 250 mg oral tablet (19 sources) Macrolide Antimicrobial Start: 09-30-2020 End: 03-01-2021 Azithromycin Discontinued 0 PO .COMPLEX 6 September 30, 2020 12:00am March 01, 2021 9:25am Take two tablets by mouth on day one then one tablet by mouth on days 2-5 Start: 11-20-2018 End: 03-03-2019 Azithromycin Discontinued 0 PO .COMPLEX 6 November 19, 2018 11:00pm March 03, 2019 7:10am Take two tablets by mouth on day one then one tablet by mouth on days 2-5 Start: 11-13-2017 End: 12-26-2017 Azithromycin Discontinued 0 PO .COMPLEX 6 November 12, 2017 11:00pm December 26, 2017 10:39am Take two tablets by mouth on day one then one tablet by mouth on days 2-5 Start: 03-29-2015 AZITHROMYCIN 2 50 MG TABS 2 tablets by mouth today and then 1 tablet daily for the next 4 days AZITHROMYCIN [id number] Jonny Juan Wallace [employer] benzonatate 100 mg oral capsule (18 sources) Non-narcotic Antitussive Start: 08-29-2021 End: 04-26-2022 take 100 mg by mouth three times daily Benzonatate Discontinued 100 MG PO THREE TIMES A DAY August 29, 2021 1:34pm April 26, 2022 2:26pm Start: 09-30-2020 End: 03-01-2021 take 1 capsule by mouth three times daily Benzonatate (Tessalon Perles) 100 mg capsule Discontinued 100 MG PO THREE TIMES A DAY September 30, 2020 12:00am March 01, 2021 9:25am Start: 09-08-2019 End: 10-06-2019 Benzonatate Discontinued 200 MG PO 2 to 3 times per day September 08, 2019 12:00am October 06, 2019 8:46am bicalutamide 50 mg oral tablet (6 sources) Androgen Receptor Inhibitor Start: 11-13-2017 End: 06-11-2018 take 50 mg by mouth once daily Bicalutamide Discontinued 50 MG PO daily November 12, 2017 11:00pm June 11, 2018 9:39am codeine phosphate 2 mg/ml / guaiFENesin 20 mg/ml oral solution (20 sources) Opioid Agonist Start: 08-29-2021 End: 09-26-2021 take 1 mL by mouth every six hours Codeine-Guaifenesin Discontinued 5 ML PO EVERY 6 HOURS 120 August 29, 2021 1:34pm September 26, 2021 8:06am Start: 09-30-2020 End: 03-01-2021 take 1 mL by mouth every six hours Codeine-Guaifenesin Discontinued 5 ML PO EVERY 6 HOURS 120 September 30, 2020 12:00am March 01, 2021 9:25am Start: 11-18-2018 End: 12-09-2018 take 1 mL by mouth every six hours before mealtime Codeine-Guaifenesin (Cheratussin Ac) 10-100 mg/5 mL liquid Discontinued 5 ML PO EVERY 6 HOURS 120 November 17, 2018 11:00pm December 09, 2018 10:08am Start: 08-01-2017 End: 12-26-2017 take 1 mL by mouth every eight hours before mealtime Codeine-Guaifenesin (Cheratussin Ac) 10-100 mg/5 mL liquid Discontinued 10 ML PO Q8H 120 November 13, 2017 9:09am December 26, 2017 10:40am Start: 05-14-2017 End: 05-21-2017 take 10 mL by mouth every six hours GUAIFENESIN-CODEINE 100-10 MG/5ML SOLN 10 mL PO every 6 hours as needed for cough GUAIFENESIN-CODEINE [id number] Ynes Guzman MD fluticasone propionate 0.05 mg/actuat metered dose nasal spray (6 sources) Corticosteroid Start: 11-13-2017 End: 12-26-2017 take 1 spray(s) nasal route once daily Fluticasone Propionate (Flonase Allergy Relief) 50 mcg/actuation spray,suspension Discontinued 2 SPRAY INTRANASAL daily 15.8 November 12, 2017 11:00pm December 26, 2017 10:40am administer into each nostril hydroCHLOROthiazide 12.5 mg oral tablet (20 sources) Thiazide Diuretic Start: 03-29-2020 End: 03-17-2021 take 12.5 mg by mouth once daily Hydrochlorothiazide Discontinued 12.5 MG PO DAILY 90 October 04, 2020 8:30am March 17, 2021 12:42pm Start: 03-21-2020 End: 03-29-2020 take 12.5 mg by mouth once daily Hydrochlorothiazide Discontinued 12.5 MG PO DAILY March 21, 2020 1:30pm March 29, 2020 12:59pm Do not refill without contacting patient first. Start: 07-03-2018 End: 03-21-2020 take 25 mg by mouth once daily Hydrochlorothiazide Discontinued 25 MG PO DAILY December 24, 2019 8:04am March 21, 2020 1:30pm Do not refill without contacting patient first. ivermectin 3 mg oral tablet (6 sources) Antiparasitic, Pediculicide Start: 10-03-2020 End: 05-30-2021 Ivermectin Discontinued PO October 03, 2020 12:00am May 30, 2021 10:36am methylPREDNISolone acetate 40 mg/ml injectable suspension (1 source) Corticosteroid Start: 06-09-2021 End: 06-09-2021 Depo-Medrol (methylprednisol one acetate) 40 mg/mL suspension for injection Discontinued 40 MG INTRAARTIC ONCE 1 June 09, 2021 7:45am June 09, 2021 8:38am sildenafil 20 mg oral tablet (5 sources) Phosphodiesterase 5 Inhibitor Start: 03-19-2022 End: 07-12-2023 take 20 mg by mouth once daily Sildenafil (Pulm.Hypertensi on) Discontinued 20 MG PO DAILY March 18, 2022 11:00pm July 12, 2023 8:06am traMADol hydrochloride 50 mg oral tablet (6 sources) Opioid Agonist Start: 09-24-2019 End: 03-21-2020 take 50 mg by mouth every eight hours Tramadol Discontinued 50 MG PO Q8H September 24, 2019 12:00am March 21, 2020 7:10am Problems Active Problems Problem Classification Problem Date Documented Date Episodic/Chronic Administrative/social admission (2 sources) Patient encounter status; Translations: [Encounter for health counseling related to travel] 01-09-2023 Episodic Cancer of prostate (6 sources) History of malignant neoplasm of prostate; Translations: [Personal history of malignant neoplasm of prostate] 11-12-2019 Episodic Cardiac dysrhythmias (6 sources) Paroxysmal ventricular tachycardia; Translations: [Ventricular premature beats] Onset: 03-29-2015 03-29-2015 Chronic Cardiac dysrhythmias (2 sources) Bradycardia; Translations: [Bradycardia, unspecified] 10-21-2023 Episodic Coronary atherosclerosis and other heart disease (10 sources) Atherosclerotic heart disease of [place] coronary artery without angina pectoris; Translations: [Coronary atherosclerosis] Onset: 04-11-2015 04-11-2015 Chronic Disorders of lipid metabolism (16 sources) Hyperlipidemia; Translations: [Hyperlipidemia, unspecified] Onset: 03-29-2015 03-29-2015 Chronic Essential hypertension (15 sources) Essential hypertension; Translations: [Essential (primary) hypertension] Onset: 01-15-2024 Chronic Fluid and electrolyte disorders (9 sources) Hyponatremia; Translations: [Hypo-osmolality and hyponatremia] Episodic Hyperplasia of prostate (5 sources) Benign prostatic hyperplasia; Translations: [Benign prostatic hyperplasia without lower urinary tract symptoms] Onset: 09-24-2024 07-12-2023 Chronic Other bone disease and musculoskeletal deformities (6 sources) Chondromalacia; Translations: [Chondromalacia, left knee] 06-25-2022 Episodic Other connective tissue disease (2 sources) Pain in toe; Translations: [Pain in right toe(s)] 07-12-2023 Episodic Other connective tissue disease (2 sources) Pain in right toe(s); Translations: [Pain in limb] 07-12-2023 Episodic Other ear and sense organ disorders (6 sources) Impacted cerumen; Translations: [Impacted cerumen, bilateral] 06-25-2022 Episodic Other upper respiratory infections (13 sources) Acute upper respiratory infection; Translations: [Acute sinusitis] Onset: 05-14-2017 05-14-2017 Episodic Residual codes; unclassified (6 sources) Obstructive sleep apnea syndrome; Translations: [Obstructive sleep apnea (adult) (pediatric)] 04-23-2020 Chronic Residual codes; unclassified (2 sources) Obstructive sleep apnea (adult) (pediatric); Translations: [Obstructive sleep apnea (adult)(pediatric)] Chronic Spondylosis; intervertebral disc disorders; other back problems (6 sources) Low back pain; Translations: [Low back pain] 03-01-2021 Episodic Unclassified (1 source) Influenza vaccination ; Translations: [Encounter for immunization] Onset: 05-14-2017 05-14-2017 Unclassified (2 sources) Placement of stent in coronary artery ; Translations: [Presence of coronary angioplasty implant and graft] Onset: 04-11-2015 06-28-2016 Unclassified (1 source) Screening - health check; Translations: [Encounter for general adult medical examination without abnormal findings] Onset: 05-14-2017 05-14-2017 Unclassified (1 source) Long-term drug therapy; Translations: [Other ferry terminal agent (current) drug therapy] Onset: 06-22-2015 06-22-2015 Unclassified (1 source) Cough, unspecified; Translations: [Cough, unspecified] Onset: 06-14-2024 Past or Other Problems Problem Classification Problem Date Documented Da te Episodic/Chronic Coronary atherosclerosis and other heart disease (4 sources) Coronary angioplasty status; Translations: [Presence of coronary angioplasty implant and graft] Onset: 04-08-2015 04-11-2015 Episodic Genitourinary symptoms and ill-defined conditions (1 source) Gross hematuria; Translations: [Gross hematuria] Onset: 09-30-2024 Episodic Malaise and fatigue (1 source) Weakness; Translations: [Weakness] Onset: 08-27-2024 Episodic Other gastrointestinal disorders (1 source) Diarrhea, unspecified; Translations: [Diarrhea, unspecified] Onset: 09-24-2024 Episodic Other infections; including parasitic (6 sources) Personal history of other infectious and parasitic diseases; Translations: [History of COVID-19] Onset: 10-04-2020 06-25-2022 Episodic Other liver diseases (1 source) Abnormal levels of other serum enzymes; Translations: [Abnormal levels of other serum enzymes] Onset: 09-30-2024 Episodic Unclassified (4 sources) Abnormal result of cardiovascular function study, unspecified; Translations: [Electrocardiogram abnormal] Onset: 03-31-2015 Resolved: 06-28-2016 06-28-2016 Episodic Unclassified (3 sources) Body mass index (BMI) 25.0-25.9, adult; Translations: [FH: Raised blood lipids] Onset: 04-20-2015 Resolved: 06-28-2016 04-20-2015 Episodic Unclassified (2 sources) Preoperative cardiovascular examination ; Translations: [Encounter for preprocedural cardiovascular examination] Onset: 06-28-2016 Resolved: 12-25-2016 06-28-2016 Results Test Name Value Interpretation Reference Range Facility Pulmonary Visit Reporton Pulmonary Visit Report [facility] [address] [place] [address] OFFICE VISIT Date of Service: 12/31/24 MR#: [id number] Acct: [id number] Name: HEATHER ISRAEL Rep #: [id number] : 1945 Provider: CHRIS Martinez Age/Sex: 79/M Location: [facility] Status: Signed Assessment and Plan Assessment and Plan (1) ANABELLE (obstructive sleep apnea): Status: Chronic Comment: AHI 12.3 Plan: He is using and benefiting from Pap therapy. No indication for titration study at this time. Contact the office for any new or worsening symptoms in the meantime. Follow-up in 1 year. Plan Details Additional Comments: This note was generated with [employer] dictation software. It may contain incorrect words, spelling, and punctuation that were not noted in checking the note before signing. Follow Up: 1 Year HPI 1 Y FU Chief Complaint: routine follow up HPI Comments Details: This patient presents to the office today for follow-up of his obstructive sleep apnea. He is ambulatory and currently on room air. He has not recently been seen in the ED or urgent care for any respiratory illness. He has not required any antibiotics or prednisone for any breathing problems. He denies any difficulty with shortness of breath. He denies any cough, sputum production or hemoptysis. He denies any wheezing, chest tightness, chest pain or palpitations. He also denies any fever, chills or body aches. He wakes up feeling rested and refreshed with the use of his PAP devices. He has 2 machines. He uses the mini when he is traveling. This explains the reduction in his compliance. He is not having mask leaks. He denies difficulty with dry mouth. He is not experiencing morning headaches. He is not requiring naps and is not nodding off to sleep unintentionally. Compliance report for the past 90 days shows 87% compliance with average use of 8 hours and 7 minutes per night. Current setting is AutoPap 5 to 15 cm of water with pressure typically being utilized at 8.0 to 11.7 cm of water. Residual AHI of 1.3 events per hour. Leaks do not appear to be problematic. Intake Vital Signs 01/01/24 07:34 06/14/24 11:02 12/31/24 08:56 Height 5 ft 10 in 5 ft 11 in 5 ft 11 in Weight: 202 lb BMI 28.1 BP 115/66 Blood Pressure Location Lt brachial Position Sitting Respiration 18 Pulse 65 Pulse Source Monitor Temp 97.4 F L Temperature Source Temporal Artery Pulse Oximetry (%) 95 Oxygen Delivery Method room air Intake Visit Reasons: 1 Y FU Chief Complaint: 6m f/u [employer] Required: No DME Vendor: [employer] Accompanied by: Self Allergies No Known Allergies Allergy (Verified 12/31/24 13:27) Medications ???Medication ???Instructions ???Recorded ???Confirmed ???Type aspirin 81 mg chewable tablet 81 mg PO DAILY@0800 04/06/1512/31 History ezetimibe 10 mg tablet (Zetia) 10 mg PO DAILY #90 tabs 09/01/24 0 12/31/24 Rx losartan 100 mg tablet 100 mg PO DAILY #90 tabs 09/01/24 12/31/24 Rx clopidogrel 75 mg tablet 75 mg PO QDAY #90 tabs 11/20/24 Rx amlodipine 5 mg tablet 5 mg PO BID #180 tabs 12/21/2404/19 Rx atorvastatin 80 mg tablet 80 mg PO QHS #90 tabs 12/21/2404/19 Rx metoprolol succinate 25 mg 25 mg PO DAILY #90 tabs 12/21/24 0 12/31/24 Rx tablet,extended release 24 hr sildenafil (pulm.hypertension) 20 60 mg PO 12/31/24 12/31/24 Histor y mg tablet Have you fallen in the past year?: No PFSH Medical History Dark urine Elevated liver enzymes Knee pain Diarrhea Upper respiratory infection Pain of toe of right foot Travel advice encounter BPH (benign prostatic hyperplasia) Multiple premature ventricular complexes Bilateral impacted cerumen Chondromalacia, left knee History of COVID-19 (10/04/20) Hyponatremia Low back pain BMI 27.0-27.9,adult ANABELLE (obstructive sleep apnea) Daytime somnolence History of prostate cancer Essential (primary) hypertension Atherosclerotic heart disease of [place] coronary artery without angina pectoris Paroxysmal ventricular tachycardia Hyperlipemia Surgical History Hx of colonoscopy History of coronary artery stent placement (04/08/15) History of hernia surgery (2016) History of prostate surgery (2015) oral surgery for broken jaw menicus surgery (2009) History of tonsillectomy Family History Mother Heart disease Hypertension High cholesterol Kidney disease Son Hyperlipemia Father Heart disease Myocardial infarction age 71 Social History household members: spouse (more content not included)... Normal [facility] Cardiology Visit Reporton Cardiology Visit Report [facility] [address] [place] [address] OFFICE VISIT Date of Service: 10/30/24 MR#: [id number] Acct: [id number] Name: HEATHER ISRAEL Rep #: [id number] : 1945 Provider: JESIKA Keller Age/Sex: 78/M [place] [facility] [place] Signed HPI HPI History of Present Illness Details: HEATHER ISRAEL, is a 78 M who presents to the office today. He is a gentleman with a history of coronary artery disease status post previous angioplasty and stenting of the left anterior descending artery in March 2015. He also has premature ventricular complexes which are unbeknownst to him. From a cardiac standpoint, the patient is doing well. He denies any palpitations, chest pain, pressure or heaviness. He denies SOB, Orthopnea, and PND. He does not have bleeding issues; no blood in urine, stool or nosebleeds. He denies any decrease in energy level, myalgias, or claudication. He does not have edema, or sudden weight gain. He denies dizziness, lightheadedness, syncopal or near syncopal episodes, and headaches. Intake Vital Signs 04/16/24 11:05 08/31/24 08:19 10/30/24 07:38 10/30/24 08:53 Height 5 ft 10 in 5 ft 11 in 5 ft 11 in Weight: 203 lb BMI 28.3 BP 145/88 H 124/68 H Blood Pressure Location Lt brachial Position Sitting Respiration 18 Pulse 53 L Pulse Source Monitor Intake Visit Reasons: 6 M FU [employer] Required: No Is patient in pain?: No Allergies No Known Allergies Allergy (Verified 10/30/24 08:39) Medications ???Medication ???Instructions ???Recorded ???Confirmed ???Type aspirin 81 mg chewable tablet 81 mg PO DAILY@0800 04/06/1510/30 History clopidogrel 75 mg tablet 75 mg PO QDAY #90 tabs 08/21/24 Rx amlodipine 5 mg tablet 5 mg PO BID #180 tabs 09/01/2403/19 Rx ezetimibe 10 mg tablet (Zetia) 10 mg PO DAILY #90 tabs 09/01/24 0 10/30/24 Rx losartan 100 mg tablet 100 mg PO DAILY #90 tabs 09/01/24 10/30/24 Rx metoprolol succinate 25 mg 25 mg PO DAILY #90 tabs 09/01/24 0 10/30/24 Rx tablet,extended release 24 hr atorvastatin 80 mg tablet 80 mg PO QHS #90 tabs 09/07/2403/19 Rx Ejection fraction %: 60 Have you fallen in the past year?: No [facility] Medical History (Updated 10/30/24 @ 08:47 by Felicity CANCHOLA, PA) Dark urine Elevated liver enzymes Knee pain Diarrhea Upper respiratory infection Pain of toe of right foot Travel advice encounter BPH (benign prostatic hyperplasia) Multiple premature ventricular complexes Bilateral impacted cerumen Chondromalacia, left knee History of COVID-19 (10/04/20) Hyponatremia Low back pain BMI 27.0-27.9,adult ANABELLE (obstructive sleep apnea) Daytime somnolence History of prostate cancer Essential (primary) hypertension Atherosclerotic heart disease of [place] coronary artery without angina pectoris Paroxysmal ventricular tachycardia Hyperlipemia Surgical History Hx of colonoscopy History of coronary artery stent placement (04/08/15) History of hernia surgery (2017) History of prostate surgery (2016) oral surgery for broken jaw menicus surgery (2009) History of tonsillectomy Family History Mother Heart disease Hypertension High cholesterol Kidney disease Son Hyperlipemia Father Heart disease Myocardial infarction age 71 Social History household members: spouse housing: house current occupational status: employed Smoking Status: Former smoker pack-years: 1 alcohol intake: current alcohol intake frequency: a few times a week Alcohol type: beer and wine substance use type: does not use caffeine: Yes Type: coffee what type of physical activity do you participate in: running, bicycling, yoga and weight training frequency: 3-4 times per week seatbelt use: always do you feel safe at home: Yes ROS Const Const: Negative for fatigue, weakness, headache(s) or frequent falls Eyes Eyes: Negative for blurry vision ENT ENT: Negative for headache(s), dizziness or Nosebleed/epistaxis Cardio Chest Pain: No Palpitations: No Edema: None Muscle aches with walking: None Resp Respiratory: Negative for SOB with activity, SOB at rest or SOB orthopnea SOB lying down GI GI: Negative nausea, vomiting, heartburn, bright, red blood in stools or black,tarry stools : Negative for hematuria Neuro Neuro: Negative for dizziness, frequent falls, headache(s), weakness or blurry vision Endo Endo: Negative for fatigue Cardiology Exam Const Appearance: cooperative, healthy appearing, no acute distress, well developed and well groomed Nutritional Appearance: average body habitus and (more content not included)... Normal [facility] Urgent Care Visit Reporton 0 10-10-2024 Urgent Care Visit Report [facility] [address], [address] [place] [address] OFFICE VISIT Date of Service: 10/10/24 MR#: [id number] Acct: [id number] Name: HEATHER ISRAEL Rep #: [id number] : 1945 Provider: CHRIS Harris Age/Sex: 78/M Location: [facility] Status: Signed Intake Vital Signs 08/31/24 08:19 10/10/24 11:12 10/10/24 11:29 Height 5 ft 11 in 5 ft 11 in BP 122/72 H Blood Pressure Location Lt brachial Position Sitting Respiration 12 Pulse 50 L Pulse Source NIBP Temp 97.9 F Temp Source Oral Pulse Oximetry (%) 96 Oxygen Delivery Method room air Intake Visit Reasons: SINUS/COUGH Chief Complaint: 6m f/u Allergies No Known Allergies Allergy (Verified 10/10/24 12:03) Medications ???Medication ???Instructions ???Recorded ???Confirmed ???Type aspirin 81 mg chewable tablet 81 mg PO DAILY@0800 04/06/1510/10 History clopidogrel 75 mg tablet 75 mg PO QDAY #90 tabs 08/21/24 Rx amlodipine 5 mg tablet 5 mg PO BID #180 tabs 09/01/24 Rx ezetimibe 10 mg tablet (Zetia) 10 mg PO DAILY #90 tabs 09/01/24 0 10/10/24 Rx losartan 100 mg tablet 100 mg PO DAILY #90 tabs 09/01/24 10/10/24 Rx metoprolol succinate 25 mg 25 mg PO DAILY #90 tabs 09/01/24 0 10/10/24 Rx tablet,extended release 24 hr atorvastatin 80 mg tablet 80 mg PO QHS #90 tabs 09/07/24 Rx cephalexin 500 mg tablet 500 mg PO TID #15 tabs 09/11/24 Rx Have you fallen in the past year?: No PFSH Medical History (Updated 10/10/24 @ 12:15 by CHRIS Henderson) Dark urine Elevated liver enzymes Knee pain Diarrhea Upper respiratory infection Pain of toe of right foot Travel advice encounter BPH (benign prostatic hyperplasia) Multiple premature ventricular complexes Bilateral impacted cerumen Chondromalacia, left knee History of COVID-19 (10/04/20) Hyponatremia Low back pain BMI 27.0-27.9,adult ANABELLE (obstructive sleep apnea) Daytime somnolence History of prostate cancer Essential (primary) hypertension Atherosclerotic heart disease of [place] coronary artery without angina pectoris Paroxysmal ventricular tachycardia Hyperlipemia Surgical History Hx of colonoscopy History of coronary artery stent placement (04/08/15) History of hernia surgery (2017) History of prostate surgery (2016) oral surgery for broken jaw menicus surgery (2009) History of tonsillectomy Family History Mother Heart disease Hypertension High cholesterol Kidney disease Son Hyperlipemia Father Heart disease Myocardial infarction age 71 Social History household members: spouse housing: house current occupational status: employed Smoking Status: Former smoker pack-years: 1 alcohol intake: current alcohol intake frequency: a few times a week Alcohol type: beer and wine substance use type: does not use caffeine: Yes Type: coffee what type of physical activity do you participate in: running, bicycling, yoga and weight training frequency: 3-4 times per week seatbelt use: always do you feel safe at home: Yes HPI HPI Chief Complaint: 6m f/u Details: HEATHER ISRAEL, is a 78 M who presents to the office today for cough and sinus congestion since Saturday. -sx started Saturday -runny nose, cough is wet no discoloration of sputum -denies fever or chills, ST, sob, ear pain, face pain or headaches or myalgias -tried so far Coricidin, benadryl ROS Const Constitutional: Positive for other (ROS negative x6 except what was placed in HPI) Exam Const General: cooperative, comfortable and no acute distress Orientation: alert, awake and oriented [facility]: normal to inspection and normocephalic Ears: hearing grossly normal bilaterally, external ears normal and TM's normal bilaterally Nose: external nose normal and other (+ congestion and rhinorrhea- moderate ) Face and sinus: normal facial exam, sinuses nontender and face symmetric Mouth: oral mucosae normal, lip normal, tongue normal, oropharynx normal and moist mucous membranes Throat: posterior oropharynx normal, tonsils normal, uvula midline and postnasal drainage Neck Neck: normal visual inspection, full ROM and no lymphadenopathy Resp Effort Inspection: normal respiratory effort, able to speak in complete sentences and symmetric chest movement Auscultation: Bilateral: Clear to Auscultation, Left: Clear to Auscultation and Right: Clear to Auscultation Cardio Rate: regular rate Rhythm: regular rhythm Heart Sounds: S1 normal and S2 normal GI Auscultation: normal bowel sounds Palpation: soft Skin General: no rashes or lesions noted and tu (more content not included)... Normal [facility] Abdomen/Pelvis without Conto n 09-10-2024 Abdomen/Pelvis without Cont [facility] Imaging Services [address] [place] [address] Abdomen/Pelvis without Cont MR#: [id number] Acct: [id number] Name: HEATHER ISRAEL Rep #: [id number] : 1945 M 78 From: Edgard quesada MD PCP: Dr. Ynes Guzman MD Status: REG CLI Study: Abdomen/Pelvis without Cont Date of Exam: 08/26 02/17 Exam# [id number] Ordering Dr: Alejandro Alamo MD [id number] STUDY: CT ABDOMEN AND PELVIS WITHOUT CONTRAST REASON FOR EXAM: Male, 78 years old. GROSS HEMATURIA. History of prostate cancer. Prior prostatectomy. RADIATION DOSAGE (If Supplied By Facility): CTDIvol = ( 18.18 ) mGy, DLP = ( 877.36 ) mGycm TECHNIQUE: Transaxial images were obtained from the dome of the diaphragm to the symphysis pubis without oral contrast, and without intravenous contrast. Sagittal and coronal images were reconstructed. Individualized dose optimization techniques were used for this CT. COMPARISON: None. FINDINGS: The visualized lung bases are unremarkable. Coronary artery calcification. Normal liver. Normal gallbladder and extrahepatic biliary system. There are multiple benign calcified granulomata of the spleen. Normal pancreas. Normal bilateral adrenal glands. Nonspecific bilateral perinephric stranding. Normal visualized stomach. Normal small intestine. Normal colon. The appendix is visualized and appears normal. There is diffuse atherosclerotic calcification of the abdominal aorta, without a demonstrated aneurysm. Normal inferior vena cava. There is borderline retroperitoneal lymphadenopathy with enlarged nodes no greater than 10mm in the short axis diameter. Diffuse bladder wall thickening. Small caliber bladder. Status post prostatectomy. Prior left inguinal hernia repair with a mesh. There are diffuse degenerative changes of the visualized lumbar spine. Grade 1 anterolisthesis of L4 on L5. CT/Abdomen/Pelvis without Cont IMPRESSION: Status post prostatectomy. Diffuse bladder wall thickening. Nonspecific bilateral perinephric stranding. Electronically Signed: Edgard Amin MD at 15:59 EST , CC: Dr. Ynes Guzman MD; Dr. Alejandro Alamo MD Unit Assistant: Signed Normal [facility] CBC W/Diff, Automatedon 08-26 PLT EST A Normal ADEQ [facility] Comment on above: Performed By: #### L 500.4050, L100.0100 #### [facility] [address] [place], [address] Comprehensive Metabolic Prof ilon 09-10-2024 Albumin [Mass/Vol] 3.3 g/dL Normal 3.2-5.0 [facility] Comment on above: Performed By: #### L 500.4050, L100.0100 #### [facility] [address] [place], [address] Albumin/Globulin [Mass ratio] 1.0 {ratio} Normal 0.9-2.4 [facility] Comment on above: Performed By: #### L 500.4050, L100.0100 #### [facility] [address] [place], [address] ALK P 102 U/L Normal 45-117 [facility] Comment on above: Performed By: #### L 500.4050, L100.0100 #### [facility] [address] [place], [address] ALT [Catalytic activity/Vol] 81 U/L High 16-61 [facility] Comment on above: Performed By: #### L 500.4050, L100.0100 #### [facility] [address] [place], [address] AST [Catalytic activity/Vol] 36 U/L Normal 15-37 [facility] Comment on above: Performed By: #### L 500.4050, L100.0100 #### [facility] [address] [place], [address] Bilirubin [Mass/Vol] 0.50 mg/dL Normal 0.20-1.00 [facility] Comment on above: Result Comment: For patients on eltrombopag therapy, use of Dimension [place] TBIL is not recommended. Performed By: #### L 500.4050, L100.0100 #### [facility] [address] [place], [address] BUN/CRE 21.2 RATIO High 10-20 [facility] Comment on above: Performed By: #### L 500.4050, L100.0100 #### [facility] [address] [place], [address] CA,Total 9.2 mg/dL Normal 8.5-10.1 [facility] Comment on above: Performed By: #### L 500.4050, L100.0100 #### [facility] [address] [place], [address] Chloride [Moles/Vol] 104 mmol/L Normal 98-107 [facility] Comment on above: Performed By: #### L 500.4050, L100.0100 #### [facility] [address] [place], [address] CO2 [Moles/Vol] 28.0 mmol/L Normal 21.0-32.0 [facility] Comment on above: Performed By: #### L 500.4050, L100.0100 #### [facility] [address] [place], [address] Creatinine [Mass/Vol] 1.04 mg/dL Normal 0.70-1.30 [facility] Comment on above: Result Comment: The validity of the calculated GFR GFRAA in patients over 70 years has not been determined. Clinical correlation is essential. Performed By: #### L 500.4050, L100.0100 #### [facility] [address] [place], [address] EST GFR - AA 89 mL/min Normal >60 [facility] Comment on above: Result Comment: Afri can [place] GFR Calc Performed By: #### L 500.4050, L100.0100 #### [facility] [address] [place], [address] GAP 6 Normal 5-15 [facility] Comment on above: Performed By: #### L 500.4050, L100.0100 #### [facility] [address] [place], [address] GFR/1.73 sq M.predicted among non-blacks MDRD (S/P/Bld) [Vol rate/Area] 73 mL/min/{1.73_m2} Normal >60 [facility] Comment on above: Result Comment: Non- GFR Calc Performed By: #### L 500.4050, L100.0100 #### [facility] [address] [place], [address] Globulin (S) [Mass/Vol] 3.4 g/dL Normal 2.2-4.2 [facility] Comment on above: Performed By: #### L 500.4050, L100.0100 #### [facility] [address] [place], [address] Glucose [Mass/Vol] 103 mg/dL Normal 74-106 [facility] Comment on above: Result Comment: Fast ing Glucose result from 100 to 125 mg/dL suggests IMPAIRED HOMEOSTASIS per A.D.A. criteria. Performed By: #### L 500.4050, L100.0100 #### [facility] [address] [place], [address] Potassium [Moles/Vol] 5.0 mmol/L Normal 3.5-5.1 [facility] Comment on above: Performed By: #### L 500.4050, L100.0100 #### [facility] [address] [place], [address] Sodium [Moles/Vol] 138 mmol/L Normal 136-145 [facility] Comment on above: Performed By: #### L 500.4050, L100.0100 #### [facility] [address] [place], [address] T PROT 6.7 g/dL Normal 6.4-8.2 [facility] Comment on above: Performed By: #### L 500.4050, L100.0100 #### [facility] [address] [place], [address] Urea nitrogen [Mass/Vol] 22 mg/dL High 7-18 [facility] Comment on above: Performed By: #### L 500.4050, L100.0100 #### [facility] [address] [place], [address] Urine Cultureon 09-09-2024 URC Below infection level. Mixed Gram Pos Gram Neg Org Chunky Count <1000 MIXC Mixed contaminants. Submit a new specimen if indicated. Normal [facility] Comment on above: Performed By: #### M 100.2200, L400.0001 ####[facility] [address] [place], [address] CBC W/Diff, Automatedon - ATYPICAL LYMPH RARE Normal [facility] Comment on above: Performed By: #### L 500.4050, L100.0100 ####[facility] [address] [place], [address] REACTIVE LYMPH RARE Normal [facility] Comment on above: Performed By: #### L 500.4050, L100.0100 ####[facility] [address] [place], [address] Comprehensive Metabolic Prof ilon 09-07-2024 Albumin [Mass/Vol] 3.1 g/dL Low 3.2-5.0 [facility] Comment on above: Performed By: #### L 500.4050, L100.0100 ####[facility] [address] [place], [address] Albumin/Globulin [Mass ratio] 0.8 {ratio} Low 0.9-2.4 [facility] Comment on above: Performed By: #### L 500.4050, L100.0100 ####[facility] [address] [place], [address] ALK P 121 U/L High 45-117 [facility] Comment on above: Performed By: #### L 500.4050, L100.0100 ####[facility] [address] [place], [address] ALT [Catalytic activity/Vol] 119 U/L High 16-61 [facility] Comment on above: Performed By: #### L 500.4050, L100.0100 ####[facility] [address] [place], [address] AST [Catalytic activity/Vol] 64 U/L High 15-37 [facility] Comment on above: Performed By: #### L 500.4050, L100.0100 ####[facility] [address] [place], [address] Bilirubin [Mass/Vol] 0.40 mg/dL Normal 0.20-1.00 [facility] Comment on above: Result Comment: For patients on eltrombopag therapy, use of Dimension [place] TBIL is not recommended. Performed By: #### L 500.4050, L100.0100 ####[facility] [address] [place], [address] BUN/CRE 22.1 RATIO High 10-20 [facility] Comment on above: Performed By: #### L 500.4050, L100.0100 ####[facility] [address] [place], [address] CA,Total 8.7 mg/dL Normal 8.5-10.1 [facility] Comment on above: Performed By: #### L 500.4050, L100.0100 ####[facility] [address] [place], [address] Chloride [Moles/Vol] 106 mmol/L Normal 98-107 [facility] Comment on above: Performed By: #### L 500.4050, L100.0100 ####[facility] [address] [place], [address] CO2 [Moles/Vol] 26.0 mmol/L Normal 21.0-32.0 [facility] Comment on above: Performed By: #### L 500.4050, L100.0100 ####[facility] [address] [place], [address] Creatinine [Mass/Vol] 1.13 mg/dL Normal 0.70-1.30 [facility] Comment on above: Result Comment: The validity of the calculated GFR GFRAA in patients over 70 years has not been determined. Clinical correlation is essential. Performed By: #### L 500.4050, L100.0100 ####[facility] [address] [place], [address] EST GFR - AA 81 mL/min Normal >60 [facility] Comment on above: Result Comment: Afri can [place] GFR Calc Performed By: #### L 500.4050, L100.0100 ####[facility] [address] [place], [address] GAP 5 Normal 5-15 [facility] Comment on above: Performed By: #### L 500.4050, L100.0100 ####[facility] [address] [place], [address] GFR/1.73 sq M.predicted among non-blacks MDRD (S/P/Bld) [Vol rate/Area] 67 mL/min/{1.73_m2} Normal >60 [facility] Comment on above: Result Comment: Non- GFR Calc Performed By: #### L 500.4050, L100.0100 ####[facility] [address] [place], [address] Globulin (S) [Mass/Vol] 3.7 g/dL Normal 2.2-4.2 [facility] Comment on above: Performed By: #### L 500.4050, L100.0100 ####[facility] [address] [place], [address] Glucose [Mass/Vol] 94 mg/dL Normal 74-106 [facility] Comment on above: Performed By: #### L 500.4050, L100.0100 ####[facility] [address] [place], [address] Potassium [Moles/Vol] 4.9 mmol/L Normal 3.5-5.1 [facility] Comment on above: Performed By: #### L 500.4050, L100.0100 ####[facility] [address] [place], [address] Sodium [Moles/Vol] 137 mmol/L Normal 136-145 [facility] Comment on above: Performed By: #### L 500.4050, L100.0100 ####[facility] [address] [place], [address] T PROT 6.8 g/dL Normal 6.4-8.2 [facility] Comment on above: Performed By: #### L 500.4050, L100.0100 ####[facility] [address] [place], [address] Urea nitrogen [Mass/Vol] 25 mg/dL High 7-18 [facility] Comment on above: Performed By: #### L 500.4050, L100.0100 ####[facility] [address] [place], [address] Urinalysis, Completeon 09-07 RBC 5-10 SEEN Normal 0-5 [facility] Comment on above: Order Comment: COLLE CTOR TO SPECIFY Performed By: #### M 100.2200, L400.0001 ####[facility] [address] [place], [address] WBC 5-10 SEEN Normal 0-5 [facility] Comment on above: Order Comment: COLLE CTOR TO SPECIFY Performed By: #### M 100.2200, L400.0001 ####[facility] [address] [place], [address] BACTERIA 0 SEEN Normal None Seen [facility] Comment on above: Order Comment: COLLE CTOR TO SPECIFY Performed By: #### M 100.2200, L400.0001 ####[facility] [address] [place], [address] EPI,SQUAMOUS 0 SEEN Normal 0-5 [facility] Comment on above: Order Comment: COLLE CTOR TO SPECIFY Performed By: #### M 100.2200, L400.0001 ####[facility] [address] [place], [address] Mucus Ql (Urine sed) 0 SEEN Normal [facility] Comment on above: Order Comment: COLLE CTOR TO SPECIFY Performed By: #### M 100.2200, L400.0001 ####[facility] [address] [place], [address] CMV Acute Antibody IgMon CMV Ab, IgM < 30.0 Normal 0.0-29.9 [facility] Comment on above: Result Comment: Nega tive <30.0 Equivocal 30.0 - 34.9 Positive >34.9 A positive result is generally indicative of acute infection, reactivation or persistent IgM production. Performed at: [address] [id number] Casino Cashier: Joseph Brantley PhD, Phone: [phone] Performed By: #### L 9543.1500, L3264.3250 #### [facility] [address] [place], [place], [id number] EBV Acute Prof IgG / IgMon 0 09-02-2024 EB Ab VCA, IgG 99.7 U/mL High 0.0-17.9 [facility] Comment on above: Result Comment: Nega tive <18.0 Equivocal 18.0 - 21.9 Positive >21.9 Performed By: #### L 01301500, L3318.3708 #### [facility] [address] [place], [place], [address] EBV Ab VCA, IgM < 36.0 Normal 0.0-35.9 [facility] Comment on above: Result Comment: Nega tive <36.0 Equivocal 36.0 - 43.9 Positive >43.9 Performed By: #### L 34001500, L3100.5850 #### [facility] [address] [place], [address] EBV NuAg Ab,IgG 411.0 U/mL High 0.0-17.9 [facility] Comment on above: Result Comment: Nega tive <18.0 Equivocal 18.0 - 21.9 Positive >21.9 Performed By: #### L 3400.1500, L3100.5850 #### [facility] [address] [place], [address] INTERPRETATION Comment Normal . [facility] Comment on above: Result Comment: EBV Interpretation Chart Myrick: Antibody Present + Antibody Absent - Interpretation VCA-IgM VCA-IgG EBNA-IgG No previous infection/ - - - Susceptible Primary infection (new + + - or recent) Past Infection +or- + + See comment below* + - - *Results indicate infection with EBV at some time however cannot predict the timing of the infection since antibodies to EBNA usually develop after primary infection or, alternatively, approximately 5-10% of patients with EBV never develop antibodies to EBNA. Performed By: #### L 3400.1500, L3100.5850 #### [facility] Laboratory [address] [place], [address] Bilirubin, Directon 08-31-19 25 Bilirubin.direct [Mass/Vol] 0.30 mg/dL Normal 0.00-0.30 [facility] Comment on above: Performed By: #### L 501.9910, L501.4700, L500.4050, L100.0100 #### [facility] Laboratory [address] [place], [address] CBC W/Diff, Automatedon PLT EST ADEQUATE Normal ADEQ [facility] Comment on above: Performed By: #### L 501.9910, L501.4700, L500.4050, L100.0100 #### [facility] Laboratory [address] [place], [address] Comprehensive Metabolic Prof ilon 08-31-2024 Albumin [Mass/Vol] 2.8 g/dL Low 3.2-5.0 [facility] Comment on above: Performed By: #### L 501.9910, L501.4700, L500.4050, L100.0100 #### [facility] Laboratory [address] [place], [address] Albumin/Globulin [Mass ratio] 0.7 {ratio} Low 0.9-2.4 [facility] Comment on above: Performed By: #### L 501.9910, L501.4700, L500.4050, L100.0100 #### [facility] Laboratory [address] [place], [address] ALK P 113 U/L Normal 45-117 [facility] Comment on above: Performed By: #### L 501.9910, L501.4700, L500.4050, L100.0100 #### [facility] Laboratory [address] [place], [address] ALT [Catalytic activity/Vol] 169 U/L High 16-61 [facility] Comment on above: Performed By: #### L 501.9910, L501.4700, L500.4050, L100.0100 #### [facility] [address] [place], [address] AST [Catalytic activity/Vol] 152 U/L High 15-37 [facility] Comment on above: Performed By: #### L 501.9910, L501.4700, L500.4050, L100.0100 #### [facility] [address] [place], [address] Bilirubin [Mass/Vol] 0.90 mg/dL Normal 0.20-1.00 [facility] Comment on above: Result Comment: For patients on eltrombopag therapy, use of Dimension [place] TBIL is not recommended. Performed By: #### L 501.9910, L501.4700, L500.4050, L100.0100 #### [facility] [address] [place], [address] BUN/CRE 21.4 RATIO High 10-20 [facility] Comment on above: Performed By: #### L 501.9910, L501.4700, L500.4050, L100.0100 #### [facility] Laboratory [address] [place], [address] CA,Total 9.0 mg/dL Normal 8.5-10.1 [facility] Comment on above: Performed By: #### L 501.9910, L501.4700, L500.4050, L100.0100 #### [facility] [address] [place], [address] Chloride [Moles/Vol] 104 mmol/L Normal 98-107 [facility] Comment on above: Performed By: #### L 501.9910, L501.4700, L500.4050, L100.0100 #### [facility] [address] [place], [address] CO2 [Moles/Vol] 26.0 mmol/L Normal 21.0-32.0 [facility] Comment on above: Performed By: #### L 501.9910, L501.4700, L500.4050, L100.0100 #### [facility] [address] [place], [address] Creatinine [Mass/Vol] 1.87 mg/dL High 0.70-1.30 [facility] Comment on above: Result Comment: The validity of the calculated GFR GFRAA in patients over 70 years has not been determined. Clinical correlation is essential. Performed By: #### L 501.9910, L501.4700, L500.4050, L100.0100 #### [facility] [address] [place], [address] EST GFR - AA 45 mL/min Low >60 [facility] Comment on above: Result Comment: Afri can [place] GFR Calc Performed By: #### L 501.9910, L501.4700, L500.4050, L100.0100 #### [facility] Laboratory [address] [place], [address] GAP 5 Normal 5-15 [facility] Comment on above: Performed By: #### L 501.9910, L501.4700, L500.4050, L100.0100 #### [facility] [address] [place], [address] GFR/1.73 sq M.predicted among non-blacks MDRD (S/P/Bld) [Vol rate/Area] 37 mL/min/{1.73_m2} Low >60 [facility] Comment on above: Result Comment: Non- GFR Calc Performed By: #### L 501.9910, L501.4700, L500.4050, L100.0100 #### [facility] [address] [place], [address] Globulin (S) [Mass/Vol] 4.1 g/dL Normal 2.2-4.2 [facility] Comment on above: Performed By: #### L 501.9910, L501.4700, L500.4050, L100.0100 #### [facility] [address] [place], [address] Glucose [Mass/Vol] 108 mg/dL High 74-106 [facility] Comment on above: Result Comment: Fast ing Glucose result from 100 to 125 mg/dL suggests IMPAIRED HOMEOSTASIS per A.D.A. criteria. Performed By: #### L 501.9910, L501.4700, L500.4050, L100.0100 #### [facility] [address] [place], [address] Potassium [Moles/Vol] 3.8 mmol/L Normal 3.5-5.1 [facility] Comment on above: Performed By: #### L 501.9910, L501.4700, L500.4050, L100.0100 #### [facility] [address] [place], [address] Sodium [Moles/Vol] 135 mmol/L Low 136-145 [facility] Comment on above: Performed By: #### L 501.9910, L501.4700, L500.4050, L100.0100 #### [facility] [address] [place], [address] T PROT 6.9 g/dL Normal 6.4-8.2 [facility] Comment on above: Performed By: #### L 501.9910, L501.4700, L500.4050, L100.0100 #### [facility] [address] [place], [address] Urea nitrogen [Mass/Vol] 40 mg/dL High 7-18 [facility] Comment on above: Performed By: #### L 501.9910, L501.4700, L500.4050, L100.0100 #### [facility] [address] [place], [address] ENTERIC PATHOGEN PANEL STOOL on 08-31-2024 EP PANEL CAMPYLOBACTER Not Detected Norovirus Not Detected Rotavirus Not Detected Salmonella Not Detected Shiga Toxin Not Detected Shigella sp. Not Detected VIBRIO Not Detected Yersinia Not Detected Normal [facility] Comment on above: Performed By: #### L 3400.1500, L3100.5850 #### [facility] Laboratory [address] [place], [address] Internal Medicine Office Vis iton 08-31-2024 Internal Medicine Office Visit [facility] [address] [place], [place] [address] OFFICE VISIT Date of Service: 08/31/24 MR#: [id number] Acct: [id number] Name: HEATHER ISRAEL Rep #: [id number] : 1945 Provider: Dr. Ynes tao MD Age/Sex: 78/M Location: [facility] Status: Signed Intake Vital Signs 01/15/24 09:13 06/14/24 11:02 08/31/24 08:19 Height 5 ft 10 in 5 ft 11 in 5 ft 11 in Weight: 198 lb BMI 27.6 BP 126/78 H Blood Pressure Location Lt brachial Position Sitting Respiration 16 Pulse 65 Pulse Source Monitor Temp 97.6 F L Temp Source Temporal Pulse Oximetry (%) 97 Oxygen Delivery Method room air Intake Visit Reasons: 6 M FU Chief Complaint: 6m f/u Supervisor [employer] Required: No Accompanied by: Self Is patient in pain?: No Allergies No Known Allergies Allergy (Verified 08/31/24 08:15) Medications ???Medication ???Instructions ???Recorded ???Confirmed ???Type aspirin 81 mg chewable tablet 81 mg PO DAILY@0800 04/06/15 08/31/24 History losartan 100 mg tablet 100 mg PO DAILY #90 tabs 03/16/24 08/31/24 Rx amlodipine 5 mg tablet 5 mg PO BID #60 tabs 06/08/24 08/31/24 Rx metoprolol succinate 25 mg 25 mg PO DAILY #90 tabs 06/25/24 08/31/24 Rx tablet,extended release 24 hr ezetimibe 10 mg tablet (Zetia) 10 mg PO DAILY #90 tabs 07/06/24 08/31/24 Rx clopidogrel 75 mg tablet 75 mg PO QDAY #90 tabs 08/21/24 08/31/24 Rx benzonatate 200 mg capsule 200 mg PO TID PRN cough #20 caps 08/27/24 08/31/24 Rx atorvastatin 80 mg tablet See Rx Instructions .Route 08/31/24 08/31/24 Rx .COMPLEX #14 tabs meloxicam 15 mg tablet 15 mg PO QDAY 08/31/24 08/31/24 History trazodone 50 mg tablet 50 mg PO QHS PRN insomnia #20 tabs 08/31/24 08/31/24 Rx Have you fallen in the past year?: No [facility] Medical History (Updated 08/31/24 @ 10:[address] Ynes Guzman MD) Knee pain Diarrhea Upper respiratory infection Pain of toe of right foot Travel advice encounter BPH (benign prostatic hyperplasia) Multiple premature ventricular complexes Bilateral impacted cerumen Chondromalacia, left knee History of COVID-19 (10/04/20) Hyponatremia Low back pain BMI 27.0-27.9,adult ANABELLE (obstructive sleep apnea) Daytime somnolence History of prostate cancer Essential (primary) hypertension Atherosclerotic heart disease of [place] coronary artery without angina pectoris Paroxysmal ventricular tachycardia Hyperlipemia Surgical History Hx of colonoscopy History of coronary artery stent placement (04/08/15) History of hernia surgery (2017) History of prostate surgery (2016) oral surgery for broken jaw menicus surgery (2009) History of tonsillectomy Family History Mother Heart disease Hypertension High cholesterol Kidney disease Son Hyperlipemia Father Heart disease Myocardial infarction age 71 Social History household members: spouse housing: house current occupational status: employed Smoking Status: Former smoker pack-years: 1 alcohol intake: current alcohol intake frequency: a few times a week Alcohol type: beer and wine substance use type: does not use caffeine: Yes Type: coffee what type of physical activity do you participate in: running, bicycling, yoga and weight training frequency: 3-4 times per week seatbelt use: always do you feel safe at home: Yes HPI HPI Chief Complaint: 6m f/u Details: HEATHER ISRAEL, is a 78 M who presents to the office today for follow-up of his chronic conditions. Also has some concerns. He reports a 1 week history of loose stools. Started out with feeling of unwell associated with watery stools several times a day. Frequency of watery stools is improving but still largely present depending on what he eats. Chills have improved, has not had a significant chill in 3 days. 1 episode of nausea but no vomiting. Appetite is also now said to be improving after being initially poor. No blood in his stool. Was seen by Ortho in [place] for knee pain. Has been doing some exercises which he has found helpful. Was also prescribed oral steroids and meloxicam which he currently takes daily. Other chronic medical conditions are largely stable. History of hypertension, blood pressure today at 126/78 mmHg. No chest pain, with recent illness, some palpitations however heart rate today is at 65. No syncopal and near syncopal episode. ROS Const Constitutional: No body ache, chills, excessive sweating, fatigue, fever(s), frequent falls, headache(s), snoring, weakness or change in appetite Eyes Eyes: No blurry vision, change in vision, floaters, visual disturbances, eye pain or Light sensitivity ENT ENT: No abnormal hearing, (more content not included)... Normal [facility] Lipid Profileon 08-31-2024 Cholesterol [Mass/Vol] 114 mg/dL Normal 200 [facility] Comment on above: Result Comment: <200 mg/dL Desirable 200-240 mg/dL Borderline >240 mg/dL High Risk Performed By: #### L 500.4100 ####[facility] [address] [place], [address] Cholesterol in HDL [Mass/Vol] 22 mg/dL Low [facility] Comment on above: Result Comment: The drugs N-Acetylcysteine and Metamizole may falsely depress this assay. Reference Range HDL <40 mg/dL Low HDL Cholesterol HDL >or= 60 mg/dL High HDL Cholesterol Performed By: #### L 500.4100 ####[facility] [address] [place], [address] Cholesterol in LDL [Mass/Vol] 68 mg/dL Normal 0-130 [facility] Comment on above: Performed By: #### L 500.4100 ####[facility] [address] [place], [address] Cholesterol in VLDL [Mass/Vol] 24 mg/dL Normal 5-40 [facility] Comment on above: Performed By: #### L 500.4100 ####[facility] [address] [place], [address] Triglyceride [Mass/Vol] 119 mg/dL Normal [facility] Comment on above: Result Comment: The drugs N-Acetylcysteine and Metamizole may falsely depress this assay. Serum Triglycerides Reference Interval Normal <150 mg/dL Borderline high 150 - 199 mg/dL High 200 - 499 mg/dL Very High > or = 500 mg/dL Performed By: #### L 500.4100 ####[facility] [address] [place], [address] PSA,Total - Annual Screenon 08-31-2024 PSA,TOT SCREEN < 0.01 Normal 0.00-4.00 [facility] Comment on above: Result Comment: This test was performed using the TPSA assay method for the [employer] chemistry system. Values obtained with different assay methods cannot be used interchangably. When changing PSA assays in the course of monitoring a patient, additional sequential testing should be carried out to confirm baseline values. Performed By: #### L 501.9910, L501.4700, L500.4050, L100.0100 #### [facility] Laboratory [address] [place], [address] Stool Lactoferrin/WBCon WBCST Normal Reference Range = Negative Fecal WBC Lactoferrin Negative: No Fecal WBC Lactoferrin present Normal [facility] Comment on above: Performed By: #### M 100.637, M100.0605 ####[facility] [address] [place], [address] Urgent Care Visit Reporton 0 08-27-2024 Urgent Care Visit Report [facility] [address], [address] [place], [place] [address] OFFICE VISIT Date of Service: 08/27/24 MR#: [id number] Acct: [id number] Name: HEATHER ISRAEL Rep #: [id number] : 1945 Provider: JESIKA Brooks Age/Sex: 78/M Location: [facility] Status: Signed Intake Vital Signs 06/14/24 11:02 08/27/24 11:47 Height 5 ft 11 in Weight: 200 lb BMI 27.8 BP 158/64 H 110/58 L Blood Pressure Location Lt brachial Lt brachial Position Sitting Sitting Respiration 16 15 Pulse 90 66 Pulse Source NIBP NIBP Temp 100.0 F H 99.6 F H Temp Source Oral Oral Pulse Oximetry (%) 98 97 Oxygen Delivery Method room air room air Intake Visit Reasons: LIGHT HEADED, CHILLS, FLU Chief Complaint: chills, weak, ROBINS, runny nose, sneezing. Supervisor [employer] Required: No Is patient in pain?: No Allergies No Known Allergies Allergy (Verified 08/27/24 11:48) Medications ???Medication ???Instructions ???Recorded ???Confirmed ???Type aspirin 81 mg chewable tablet 81 mg PO DAILY@0800 04/06/15 04/16/24 History losartan 100 mg tablet 100 mg PO DAILY #90 tabs 03/16/24 04/16/24 Rx amlodipine 5 mg tablet 5 mg PO BID #60 tabs 06/08/24 Rx metoprolol succinate 25 mg 25 mg PO DAILY #90 tabs 06/25/24 Rx tablet,extended release 24 hr ezetimibe 10 mg tablet (Zetia) 10 mg PO DAILY #90 tabs 07/06/24 Rx clopidogrel 75 mg tablet 75 mg PO QDAY #90 tabs 08/21/24 Rx atorvastatin 80 mg tablet See Rx Instructions .Route 08/24/24 Rx .COMPLEX #90 tabs benzonatate 200 mg capsule 200 mg PO TID PRN cough #20 caps 08/27/24 08/27/24 Rx Have you fallen in the past year?: No Nurse's Note: chills, weak, ROBINS, runny nose, sneezing. x 4 days. denies fever, congestion, cough PFSH Medical History (Updated 06/14/24 @ 11:27 by Zack Nix CUSTODIAL ENGINEER, CUSTODIAL ENGINEER-C) Upper respiratory infection Pain of toe of right foot Travel advice encounter BPH (benign prostatic hyperplasia) Multiple premature ventricular complexes Bilateral impacted cerumen Chondromalacia, left knee History of COVID-19 (10/04/20) Hyponatremia Low back pain BMI 27.0-27.9,adult ANABELLE (obstructive sleep apnea) Daytime somnolence History of prostate cancer Essential (primary) hypertension Atherosclerotic heart disease of [place] coronary artery without angina pectoris Paroxysmal ventricular tachycardia Hyperlipemia Surgical History Hx of colonoscopy History of coronary artery stent placement (04/08/15) History of hernia surgery (2016) History of prostate surgery (2015) oral surgery for broken jaw menicus surgery (2009) History of tonsillectomy Family History Mother Heart disease Hypertension High cholesterol Kidney disease Son Hyperlipemia Father Heart disease Myocardial infarction age 71 Social History household members: spouse housing: house current occupational status: employed Smoking Status: Former smoker pack-years: 1 alcohol intake: current alcohol intake frequency: a few times a week Alcohol type: beer and wine substance use type: does not use caffeine: Yes Type: coffee what type of physical activity do you participate in: running, bicycling, yoga and weight training frequency: 3-4 times per week seatbelt use: always do you feel safe at home: Yes HPI HPI Chief Complaint: chills, weak, ROBINS, runny nose, sneezing. Details: HEATHER ISRAEL, is a 78 M who presents to the office today for complaint of chills, headache, fatigue for the past 4 days. Patient denies fever or sweats. No chest pain, shortness of breath or difficulty breathing. No nausea, vomiting or diarrhea. Patient does state being concerned for influenza. No other associated symptoms or alleviating/aggravati ng factors. ROS Const Constitutional: Positive for other (6 system ROS completed with pertinent findings in the HPI otherwise normal.) Exam Const General: cooperative and well developed HENMT Head: normal to inspection and atraumatic Ears: hearing grossly normal bilaterally Nose: nasal discharge clear Face and sinus: normal facial exam Mouth: oral mucosae normal Throat: abnormal tonsil bilaterally hypertrophy 1+ Resp Effort Inspection: normal respiratory effort and no audible wheezes Auscultation: Bilateral: Clear to Auscultation Cardio Palpation: normal PMI Rate: regular rate Rhythm: regular rhythm Neuro General: patient alert and CN's II-XI intact bilaterally Psych Appearance: grossly normal Mental Status: mental status grossly normal Results POC SARS AG POC SARS AG Negative Last Edit by Kaela Molina on 08/27/24 11:53 POC FLU A B Office Flu A B Negative FLU (more content not included)... Normal [facility] Urgent Care Visit Reporton 1 Urgent Care Visit Report [facility] [address], [address] [place] [address] OFFICE VISIT Date of Service: 06/14/24 MR#: [id number] Acct: [id number] Name: HEATHER ISRAEL Rep #: [id number] : 1945 Provider: CHRIS izaguirre Age/Sex: 78/M Location: [facility] Status: Signed Intake Vital Signs 04/16/24 11:05 06/14/24 11:02 Height 5 ft 10 in 5 ft 11 in Weight: 200 lb BMI 27.8 BP 130/80 H 158/64 H Blood Pressure Location Lt brachial Lt brachial Position Sitting Sitting Respiration 16 Pulse 90 Pulse Source NIBP Temp 100.0 F H Temp Source Oral Pulse Oximetry (%) 98 Oxygen Delivery Method room air Comment Manual Intake Visit Reasons: Cough Chief Complaint: cough Supervisor [employer] Required: No Is patient in pain?: No Allergies No Known Allergies Allergy (Verified 06/14/24 11:02) Have you fallen in the past year?: No Nurse's Note: dry cough, intermittent white/yellow mucus x 6 days. tried otc mucinex and coricidin without relief. low grade temp in office. denies ROBINS, ST, congestion, BA PFSH Medical History (Updated 06/14/24 @ 11:27 by Zack Nix CUSTODIAL ENGINEER, CUSTODIAL ENGINEER-C) Upper respiratory infection Pain of toe of right foot Travel advice encounter BPH (benign prostatic hyperplasia) Multiple premature ventricular complexes Bilateral impacted cerumen Chondromalacia, left knee History of COVID-19 (10/04/20) Hyponatremia Low back pain BMI 27.0-27.9,adult ANABELLE (obstructive sleep apnea) Daytime somnolence History of prostate cancer Essential (primary) hypertension Atherosclerotic heart disease of [place] coronary artery without angina pectoris Paroxysmal ventricular tachycardia Hyperlipemia Surgical History Hx of colonoscopy History of coronary artery stent placement (04/08/15) History of hernia surgery (2017) History of prostate surgery (2015) oral surgery for broken jaw menicus surgery (2009) History of tonsillectomy Family History Mother Heart disease Hypertension High cholesterol Kidney disease Son Hyperlipemia Father Heart disease Myocardial infarction age 71 Social History household members: spouse housing: house current occupational status: employed Smoking Status: Former smoker pack-years: 1 alcohol intake: current alcohol intake frequency: a few times a week Alcohol type: beer and wine substance use type: does not use caffeine: Yes Type: coffee what type of physical activity do you participate in: running, bicycling, yoga and weight training frequency: 3-4 times per week seatbelt use: always do you feel safe at home: Yes HPI HPI Chief Complaint: cough Details: HEATHER ISRAEL, is a 78 M who presents to the office today for concerns regarding dry cough initially and now has developed into intermittent white and yellow mucus production. This has been ongoing for 6 days. He has tried OTC medications with no relief. He denies headache, sore throat, congestion, or body aches. Prior to evaluation he underwent rapid respiratory testing that was negative. ROS Const Constitutional: Positive for headache(s); No body ache, chills, fatigue, fever(s) or change in appetite Eyes Eyes: Positive for discharge (Watery); No blurry vision, change in vision, double vision, irritation, vision loss, dry eyes, bulging eyes, floaters, visual disturbances, eye pain, Light sensitivity, spots in vision, tunnel vision or other ENT ENT: Positive for headache(s); No ear or mastoid pain, ear discharge, ear pressure, tinnitus, dizziness/vertigo, nosebleed/epistaxis, nasal congestion, nose pain, sinus pressure, sinus pain, nasal discharge, post nasal drip, facial pain, dental pain, difficulty swallowing, bad breath, hoarseness, lip swelling, mouth lesions, mouth pain, neck pain, sore throat, tongue swelling or throat swelling Resp Respiratory: Positive for cough, change in phlegm color (Yellow/Green) and wheezing (resolved); No chest congestion, hemoptysis, pain on inspiration, shortness of breath, pain with cough or stridor Cardio Cardiology: No chest pain at rest, chest pain with exertion, shortness of breath, dyspnea on exertion or lightheadedness Gastro GI: No abdominal pain, change in bowel habits or difficulty swallowing Genitourinary Male: No burning urination or urinary frequency Musc Musculoskeletal: No joint pain or neck pain Skin Skin: No rash Neuro Neurology: Positive for headache(s); No visual disturbances Psych Psychiatric: No change in appetite Endo Endocrine: No fatigue Aller/Imm Allergy/Immunologic: Positive for wheezing (resolved); No lip swelling, throat swelling or tongue swelling Exam Con (more content not included)... Normal [facility] Cardiology Visit Reporton Cardiology Visit Report [facility] [address] [place] [address] OFFICE VISIT Date of Service: 04/16/24 MR#: [id number] Acct: [id number] Name: HEATHER ISRAEL Rep #: [id number] : 1945 Provider: CHRIS ba Age/Sex: 78/M Location: [facility] Status: Signed HPI HPI History of Present Illness Details: HEATHER ISRAEL, is a 78 M who presents to the office today. He is a gentleman with a history of coronary artery disease status post previous angioplasty and stenting of the left anterior descending artery in March 2015. He also has premature ventricular complexes which are unbeknownst to him. From a cardiac standpoint, the patient is doing well. He denies any palpitations, chest pain, pressure or heaviness. He denies SOB, Orthopnea, and PND. He does not have bleeding issues; no blood in urine, stool or nosebleeds. He denies any decrease in energy level, myalgias, or claudication. He does not have edema, or sudden weight gain. He denies dizziness, lightheadedness, syncopal or near syncopal episodes, and headaches. Intake Vital Signs 10/18/23 11:32 01/15/24 09:13 04/16/24 11:02 04/16/24 11:05 Height 5 ft 10 in 5 ft 10 in 5 ft 10 in 5 ft 10 in Weight: 198 lb BMI 28.4 BP 169/85 H 130/80 H Blood Pressure Location Lt brachial Lt brachial Position Sitting Sitting Respiration 18 Pulse 69 Pulse Source Monitor Pulse Oximetry (%) 95 Comment Manual Intake Visit Reasons: 6 M FU [employer] Required: No Is patient in pain?: No Allergies No Known Allergies Allergy (Verified 04/16/24 11:10) Medications ???Medication ???Instructions ???Recorded ???Confirmed ???Type aspirin 81 mg chewable tablet 81 mg PO DAILY@0800 04/06/15 04/16/24 History amlodipine 5 mg tablet 5 mg PO BID this is a dose 10/24/23 04/16/24 Rx increase #180 tabs atorvastatin 80 mg tablet See Rx Instructions .Route 02/04/24 04/16/24 Rx .COMPLEX #90 tabs losartan 100 mg tablet 100 mg PO DAILY #90 tabs 03/16/24 04/16/24 Rx clopidogrel 75 mg tablet 75 mg PO DAILY #90 TABLETS 03/23/24 04/16/24 Rx metoprolol succinate 25 mg 25 mg PO DAILY #90 tabs 03/23/24 04/16/24 Rx tablet,extended release 24 hr ezetimibe 10 mg tablet (Zetia) 10 mg PO DAILY #90 tabs 04/16/24 04/16/24 Rx Have you fallen in the past year?: No PFSH Medical History Pain of toe of right foot Travel advice encounter BPH (benign prostatic hyperplasia) Multiple premature ventricular complexes Bilateral impacted cerumen Chondromalacia, left knee History of COVID-19 (10/04/20) Hyponatremia Low back pain BMI 27.0-27.9,adult ANABELLE (obstructive sleep apnea) Daytime somnolence History of prostate cancer Essential (primary) hypertension Atherosclerotic heart disease of [place] coronary artery without angina pectoris Paroxysmal ventricular tachycardia Upper respiratory infection Hyperlipemia Surgical History Hx of colonoscopy History of coronary artery stent placement (04/08/15) History of hernia surgery (2016) History of prostate surgery (2015) oral surgery for broken jaw menicus surgery (2009) History of tonsillectomy Family History Mother Heart disease Hypertension High cholesterol Kidney disease Son Hyperlipemia Father Heart disease Myocardial infarction age 71 Social History household members: spouse housing: house current occupational status: employed Smoking Status: Former smoker pack-years: 1 alcohol intake: current alcohol intake frequency: a few times a week Alcohol type: beer and wine substance use type: does not use caffeine: Yes Type: coffee what type of physical activity do you participate in: running, bicycling, yoga and weight training frequency: 3-4 times per week seatbelt use: always do you feel safe at home: Yes ROS Const Const: Negative for fatigue, weakness, fever(s), headache(s), chills, frequent falls, weight gain or weight loss Eyes Eyes: Negative for blind spots, loss of peripheral vision, transient loss of vision, blurry vision, change in vision, double vision, floaters or tunnel vision ENT ENT: Negative for headache(s), dizziness, Nosebleed/epistaxis, balance problems or neck pain Cardio Chest Pain: No Palpitations: No Edema: None Muscle aches with walking: None Resp Respiratory: Negative for SOB with activity, SOB at rest or SOB orthopnea SOB lying down GI GI: Negative nausea, vomiting, heartburn, bloating, vomiting blood/hematemesis, bright, red blood in stools or black,tarry stools Musc Musc: Negative for muscle aches/ myalgia, muscle weakness, christy (more content not included)... Normal [facility] PSA,Total- Diagnosticon 01-24 PSA, DIAGNOSTIC < 0.01 Normal 0.0-4.0 [facility] Comment on above: Order Comment: PER P T-JUST THIS ORDER Result Comment: This test was performed using the TPSA assay method for the [employer] chemistry system. Values obtained with different assay methods cannot be used interchangably. When changing PSA assays in the course of monitoring a patient, additional sequential testing should be carried out to confirm baseline values. Performed By: #### L 501.9940 ####[facility] [id number] [facility]. [place], [place], [address] Bilirubin, Directon 01-15-20 24 Bilirubin.direct [Mass/Vol] 0.27 mg/dL Normal 0.00-0.30 [facility] Comment on above: Order Comment: DR. Christopher JAIME ORDERED LIVER Performed By: #### L 3400.1500, L3100.5850 #### [facility] [address] [place], [address] CBC W/Diff, Automatedon 12-25 ATYPICAL LYMPH 1+ Normal [facility] Comment on above: Performed By: #### L 3400.1500, L3100.5850 #### [facility] [address] [place], [address] SMEAR COMMENT COMMENT Normal [facility] Comment on above: Result Comment: LYMP HOCYTOSIS. Performed By: #### L 3400.1500, L3100.5850 #### [facility] [address] [place], [address] Comprehensive Metabolic Prof ilon 01-15-2024 Albumin [Mass/Vol] 3.8 g/dL Normal 3.2-5.0 [facility] Comment on above: Order Comment: DR. Christopher JAIME ORDERED LIVER Performed By: #### L 3400.1500, [id number] #### [facility] [address] [place], [address] Albumin/Globulin [Mass ratio] 1.4 {ratio} Normal 0.9-2.4 [facility] Comment on above: Order Comment: DR. Christopher JAIME ORDERED LIVER Performed By: #### L 3400.1499, [id number] #### [facility] [address] [place], [address] ALK P 48 U/L Normal 45-117 [facility] Comment on above: Order Comment: DR. Christopher JAIME ORDERED LIVER Performed By: #### L 3400.1499, [id number] #### [facility] [address] [place], [address] ALT [Catalytic activity/Vol] 30 U/L Normal 16-61 [facility] Comment on above: Order Comment: DR. Christopher JAIME ORDERED LIVER Performed By: #### L 3400.1499, [id number] #### [facility] [address] [place], [address] AST [Catalytic activity/Vol] 23 U/L Normal 15-37 [facility] Comment on above: Order Comment: DR. Christopher JAIME ORDERED LIVER Performed By: #### L 3400.1500, [id number] #### [facility] [address] [place], [address] Bilirubin [Mass/Vol] 0.80 mg/dL Normal 0.20-1.00 [facility] Comment on above: Order Comment: DR. Christopher JAIME ORDERED LIVER Result Comment: For patients on eltrombopag therapy, use of Dimension [place] TBIL is not recommended. Performed By: #### L 3400.1500, [id number] #### [facility] [address] [place], [address] BUN/CRE 21.6 RATIO High 10-20 [facility] Comment on above: Order Comment: DR. Christopher JAIME ORDERED LIVER Performed By: #### L 3400.1500, [id number] #### [facility] [address] [place], [address] CA,Total 8.9 mg/dL Normal 8.5-10.1 [facility] Comment on above: Order Comment: DR. Christopher JAIME ORDERED LIVER Performed By: #### L 3400.1500, [id number] #### [facility] [address] [place], [address] Chloride [Moles/Vol] 101 mmol/L Normal 98-107 [facility] Comment on above: Order Comment: DR. Christopher JAIME ORDERED LIVER Performed By: #### L 3400.1500, [id number] #### [facility] [address] [place], [address] CO2 [Moles/Vol] 26.0 mmol/L Normal 21.0-32.0 [facility] Comment on above: Order Comment: DR. Christopher JAIME ORDERED LIVER Performed By: #### L 3400.1500, [id number] #### [facility] [address] [place], [address] Creatinine [Mass/Vol] 1.02 mg/dL Normal 0.70-1.30 [facility] Comment on above: Order Comment: DR. Christopher JAIME ORDERED LIVER Result Comment: The validity of the calculated GFR GFRAA in patients over 70 years has not been determined. Clinical correlation is essential. Performed By: #### L 3400.1500, [id number] #### [facility] [address] [place], [address] EST GFR - AA 91 mL/min Normal >60 [facility] Comment on above: Order Comment: DR. Christopher JAIME ORDERED LIVER Result Comment: Afri can [place] GFR Calc Performed By: #### L 3400.1500, [id number] #### [facility] [address] [place], [address] GAP 6 Normal 5-15 [facility] Comment on above: Order Comment: DR. Christopher JAIME ORDERED LIVER Performed By: #### L 3400.1500, [id number] #### [facility] [address] [place], [address] GFR/1.73 sq M.predicted among non-blacks MDRD (S/P/Bld) [Vol rate/Area] 75 mL/min/{1.73_m2} Normal >60 [facility] Comment on above: Order Comment: DR. Christopher JAIME ORDERED LIVER Result Comment: Non- GFR Calc Performed By: #### L 3400.1500, [id number] #### [facility] [address] [place], [address] Globulin (S) [Mass/Vol] 2.7 g/dL Normal 2.2-4.2 [facility] Comment on above: Order Comment: DR. Christopher JAIME ORDERED LIVER Performed By: #### L 3400.1500, [id number] #### [facility] [address] [place], [address] Glucose [Mass/Vol] 104 mg/dL Normal 74-106 [facility] Comment on above: Order Comment: DR. Christopher JAIME ORDERED LIVER Result Comment: Fast ing Glucose result from 100 to 125 mg/dL suggests IMPAIRED HOMEOSTASIS per A.D.A. criteria. Performed By: #### L 3400.1500, [id number] #### [facility] [address] [place], [address] Potassium [Moles/Vol] 4.5 mmol/L Normal 3.5-5.1 [facility] Comment on above: Order Comment: DR. Christopher JAIME ORDERED LIVER Performed By: #### L 3400.1500, [id number] #### [facility] [address] [place], [address] Sodium [Moles/Vol] 133 mmol/L Low 136-145 [facility] Comment on above: Order Comment: DR. Christopher JAIME ORDERED LIVER Performed By: #### L 3400.1500, [id number] #### [facility] [address] [place], [address] T PROT 6.5 g/dL Normal 6.4-8.2 [facility] Comment on above: Order Comment: DR. Christopher JAIME ORDERED LIVER Performed By: #### L 3400.1500, [id number] #### [facility] [address] [place], [address] Urea nitrogen [Mass/Vol] 22 mg/dL High 7-18 [facility] Comment on above: Order Comment: DR. Christopher JAIME ORDERED LIVER Performed By: #### L 3400.1500, [id number] #### [facility] [address] [place], [address] Internal Medicine Office Vis qiana 01-15-2024 Internal Medicine Office Visit [facility] [address] [place] [address] [place] [address] OFFICE VISIT Date of Service: 01/15/24 MR#: [id number] Acct: [id number] Name: HEATHER ISRAEL Rep #: [id number] : 1945 Provider: Dr. Ynes tao MD Age/Sex: 78/M Location: [facility] Status: Signed Intake Vital Signs 07/12/23 08:04 01/01/24 07:34 01/15/24 09:13 Height 5 ft 10 in 5 ft 10 in 5 ft 10 in Weight: 201 lb BMI 28.8 BP 120/82 H Blood Pressure Location Lt brachial Position Sitting Respiration 16 Pulse 51 L Pulse Source Monitor Temp 98.5 F Temp Source Temporal Pulse Oximetry (%) 98 Oxygen Delivery Method room air Intake Visit Reasons: 6 M FU Chief Complaint: Follow-up chronic conditions Supervisor [employer] Required: No Is patient in pain?: No Allergies No Known Allergies Allergy (Verified 01/15/24 09:09) Medications ???Medication ???Instructions ???Recorded ???Confirmed ???Type aspirin 81 mg chewable tablet 81 mg PO DAILY@0800 0801/15/24 History atorvastatin 80 mg tablet See Rx Instructions .Route 10/18/23 01/15/24 Rx .COMPLEX #90 tabs clopidogrel 75 mg tablet (Plavix) 75 mg PO DAILY awaiting mail order 10/18/23 01/15/24 Rx RX #90 tabs metoprolol succinate 25 mg 25 mg PO DAILY #90 tabs 10/18/23 01/15/24 Rx tablet,extended release 24 hr amlodipine 5 mg tablet 5 mg PO BID this is a dose 10/24/23 01/15/24 Rx increase #180 tabs losartan 100 mg tablet 100 mg PO DAILY 01/01/24 01/15/24 History PFSH Medical History Pain of toe of right foot Travel advice encounter BPH (benign prostatic hyperplasia) Multiple premature ventricular complexes Bilateral impacted cerumen Chondromalacia, left knee History of COVID-19 (10/04/20) Hyponatremia Low back pain BMI 27.0-27.9,adult ANABELLE (obstructive sleep apnea) Daytime somnolence History of prostate cancer Essential (primary) hypertension Atherosclerotic heart disease of [place] coronary artery without angina pectoris Paroxysmal ventricular tachycardia Upper respiratory infection Hyperlipemia Surgical History Hx of colonoscopy History of coronary artery stent placement (04/08/15) History of hernia surgery (2017) History of prostate surgery (2016) oral surgery for broken jaw menicus surgery (2009) History of tonsillectomy Family History Mother Heart disease Hypertension High cholesterol Kidney disease Son Hyperlipemia Father Heart disease Myocardial infarction age 71 Social History household members: spouse housing: house current occupational status: employed Smoking Status: Former smoker pack-years: 1 alcohol intake: current alcohol intake frequency: a few times a week Alcohol type: beer and wine substance use type: does not use caffeine: Yes Type: coffee what type of physical activity do you participate in: running, bicycling, yoga and weight training frequency: 3-4 times per week seatbelt use: always do you feel safe at home: Yes HPI HPI Chief Complaint: Follow-up chronic conditions Details: HEATHER ISRAEL, is a 78 M who presents to the office today for follow up of his chronic medical conditions. He has no acute concerns at this time. History of hypertension, he did come in with his log which shows readings ranging in the 1 teens to 150s (systolic). Saw the heart group in September and following that visit amlodipine was increased to 5 mg twice daily however, he states that he has been taking it once a day. Stays active. Other chronic medical conditions are largely stable. He denies any urinary concerns. ROS Const Constitutional: No body ache, chills, excessive sweating, fatigue, fever(s), frequent falls, headache(s), snoring, weakness, sleep problems or change in appetite Eyes Eyes: No blurry vision, change in vision, dry eyes, floaters, visual disturbances, eye pain or Light sensitivity ENT ENT: No abnormal hearing, ear or mastoid pain, tinnitus, nosebleed/epistaxis, nasal congestion, headache(s), neck pain or sore throat Resp Respiratory: No cough, excessive phlegm production, pain on inspiration, shortness of breath, snoring or wheezing Cardio Cardiology: No chest pain at rest, chest pain with exertion, excessive sweating, shortness of breath, dyspnea on exertion, lightheadedness, orthopnea or palpitations Gastro GI: No abdominal pain, change in bowel habits, constipation, cramping, diarrhea, nausea/dyspepsia or vomiting Genitourinary Male: No burning urination, painful urination, urinary incontinence, urinary frequency, suprapubic fullness or side pain Mus (more content not included)... Normal [facility] Lipid Profileon 01-15-2024 Cholesterol [Mass/Vol] 169 mg/dL Normal 200 [facility] Comment on above: Result Comment: <200 mg/dL Desirable 200-240 mg/dL Borderline >240 mg/dL High Risk Performed By: #### L 500.4100 ####[facility] [id number] [place], [address] Cholesterol in HDL [Mass/Vol] 70 mg/dL Normal [facility] Comment on above: Result Comment: The drugs N-Acetylcysteine and Metamizole may falsely depress this assay. Reference Range HDL <40 mg/dL Low HDL Cholesterol HDL >or= 60 mg/dL High HDL Cholesterol Performed By: #### L 500.4100 ####[facility] [address] [place], [address] Cholesterol in LDL [Mass/Vol] 87 mg/dL Normal 0-130 [facility] Comment on above: Performed By: #### L 500.4100 ####[facility] [address] [place], [address] Cholesterol in VLDL [Mass/Vol] 12 mg/dL Normal 5-40 [facility] Comment on above: Performed By: #### L 500.4100 ####[facility] [address] [place], [address] Triglyceride [Mass/Vol] 59 mg/dL Normal [facility] Comment on above: Result Comment: The drugs N-Acetylcysteine and Metamizole may falsely depress this assay. Serum Triglycerides Reference Interval Normal <150 mg/dL Borderline high 150 - 199 mg/dL High 200 - 499 mg/dL Very High > or = 500 mg/dL Performed By: #### L 500.4100 ####[facility] [address] [place], [address] Basophil percentageOrdered B y: Otilio Joy on 07-12-2023 Bilirubin [Mass/Vol] 0.70 mg/dL 0.20-1.00 [facility] Comment on above: For patients on eltr ombopag therapy, use of Dimension [place] TBIL is not recommended. Cholesterol [Mass/Vol] 177 mg/dL <200 [facility] Comment on above: <200 mg/dL Desirable 200-240 mg/dL Borderline >240 mg/dL High Risk Protein [Mass/Vol] 6.9 g/dL 6.4-8.2 [facility] Triglyceride [Mass/Vol] 66 mg/dL <199 [facility] Comment on above: The drugs N-Acetylcy steine and Metamizole may falsely depress this assay.Serum Triglycerides Reference Interval Normal <150 mg/dL Borderline high 150 - 199 mg/dL High 200 - 499 mg/dL Very High > or = 500 mg/dL Basophil percentageOrdered B y: Rolanongjulieth Villalobose on 07-12-2023 Chloride [Moles/Vol] 105 mmol/L 98-107 [facility] Glucose [Mass/Vol] 108 mg/dL 74-106 [facility] Comment on above: Fasting Glucose resu lt from 100 to 125 mg/dL suggests IMPAIRED HOMEOSTASIS per A.D.A. criteria. Potassium [Moles/Vol] 4.4 mmol/L 3.5-5.1 [facility] Sodium [Moles/Vol] 138 mmol/L 136-145 [facility] Direct bilirubinOrdered By: Auxier Joy on 07-12-2023 Bilirubin.direct [Mass/Vol] 0.23 mg/dL 0.00-0.30 [facility] Laboratory - Chemistry and C hemistry - challengeOrdered By: Auxier Ojy on 07-12-2023 ALP [Catalytic activity/Vol] 60 U/L 45-117 [facility] ALT [Catalytic activity/Vol] 33 U/L 16-61 [facility] Globulin (S) [Mass/Vol] 2.9 g/dL 2.2-4.2 [facility] Laboratory - Chemistry and C hemistry - challengeOrdered By: Ynes Guzman on 07-12-2023 CO2 [Moles/Vol] 28.0 mmol/L 21.0-32.0 [facility] Urea nitrogen/Creatinine [Mass ratio] 17.6 mg/mg 10-20 [facility] No Panel InformationOrdered By: Ynes Guzman on 07-12-2023 Estimated GFR (MDRD) Amer 85 mL/min >60 [facility] Comment on above: GFR Calc Estimated GFR (MDRD) Non-Af Amer 71 mL/min >60 [facility] Comment on above: Non- GFR Calc Serum or plasma albumin adrian urement (mass/volume)Ordered By: Otilio Hamilton on 07-12-2023 Albumin [Mass/Vol] 4.0 g/dL 3.2-5.0 [facility] Serum or plasma calcium adrian urement (mass/volume)Ordered By: Ynes Guzman on 07-12-2023 Calcium [Mass/Vol] 8.9 mg/dL 8.5-10.1 [facility] Serum or plasma cholesterol in HDL measurement (mass/volume)Ordered By: Otilio Hamilton on 07-12-2023 Cholesterol in HDL [Mass/Vol] 69 mg/dL >40 [facility] Comment on above: The drugs N-Acetylcy steine and Metamizole may falsely depress this assay. Reference Range HDL <40 mg/dL Low HDL Cholesterol HDL >or= 60 mg/dL High HDL Cholesterol Serum or plasma cholesterol in VLDL measurement (mass/volume)Ordered By: Otilio Hamilton on 07-12-2023 Cholesterol in VLDL [Mass/Vol] 13 mg/dL 5-40 [facility] Serum or plasma creatinine m easurement (mass/volume)Ordered By: Ynes Guzman on 07-12-2023 Creatinine [Mass/Vol] 1.08 mg/dL 0.70-1.30 [facility] Comment on above: The validity of the calculated GFR & GFRAA in patients over 70 years has not been determined. Clinical correlation is essential. Serum or plasma low density lipoprotein (LDL) cholesterol measurement (mass/volume)Ordered By: Otilio Hamilton on 07-12-2023 Cholesterol in LDL [Mass/Vol] 95 mg/dL 0-130 [facility] Serum or plasma urea nitroge n measurement (mass/volume)Ordered By: Ynes Guzman on 07-12-2023 Urea nitrogen [Mass/Vol] 19 mg/dL 7-18 [facility] Thin prep Papanicolaou smear with manual screeningOrdered By: Otilio Hamilton on 07-12-2023 Thin prep Papanicolaou smear with manual screening 24 U/L 15-37 [facility] Thin prep Papanicolaou smear with manual screeningOrdered By: Ynes Guzman on 07-12-2023 Thin prep Papanicolaou smear with manual screening 5 5-15 [facility] Basophil percentageon 2021 Bilirubin [Mass/Vol] 0.60 mg/dL 0.20-1.00 [facility] Work Phone: Comment on above: For patients on eltr ombopag therapy, use of Dimension [place] TBIL is not recommended. Cholesterol [Mass/Vol] 147 mg/dL <200 [facility] Work Phone: Comment on above: <200 mg/dL Desirable 200-240 mg/dL Borderline >240 mg/dL High Risk Protein [Mass/Vol] 6.7 g/dL 6.4-8.2 [facility] Work Phone: [phone] Triglyceride [Mass/Vol] 55 mg/dL <199 [facility] Work Phone: Comment on above: The drugs N-Acetylcy steine and Metamizole may falsely depress this assay.Serum Triglycerides Reference Interval Normal <150 mg/dL Borderline high 150 - 199 mg/dL High 200 - 499 mg/dL Very High > or = 500 mg/dL Direct bilirubinon 2 Bilirubin.direct [Mass/Vol] 0.21 mg/dL 0.00-0.30 [facility] Work Phone: Laboratory - Chemistry and C hemistry - challengeon 06-20-2022 ALP [Catalytic activity/Vol] 54 U/L 45-117 [facility] Work Phone: [phone] ALT [Catalytic activity/Vol] 32 U/L 16-61 [facility] Work Phone: Globulin (S) [Mass/Vol] 2.9 g/dL 2.2-4.2 [facility] Work Phone: [phone] Serum or plasma albumin adrian urement (mass/volume)on 06-20-2022 Albumin [Mass/Vol] 3.8 g/dL 3.2-5.0 [facility] Work Phone: Serum or plasma cholesterol in HDL measurement (mass/volume)on 06-20-2022 Cholesterol in HDL [Mass/Vol] 52 mg/dL >40 [facility] Work Phone: Comment on above: The drugs N-Acetylcy steine and Metamizole may falsely depress this assay. Reference Range HDL <40 mg/dL Low HDL Cholesterol HDL >or= 60 mg/dL High HDL Cholesterol Serum or plasma cholesterol in VLDL measurement (mass/volume)on 06-20-2022 Cholesterol in VLDL [Mass/Vol] 11 mg/dL 5-40 [facility] Work Phone: [phone] Serum or plasma low density lipoprotein (LDL) cholesterol measurement (mass/volume)on 06-20-2022 Cholesterol in LDL [Mass/Vol] 84 mg/dL 0-130 [facility] Work Phone: [phone] Thin prep Papanicolaou smear with manual screeningon 06-20-2022 Thin prep Papanicolaou smear with manual screening 20 U/L 15-37 [facility] Work Phone: Absolute lymphocyte counton 04-26-2022 Lymphocytes Auto (Unsp spec) [#/Vol] 3.61 10*3/uL 0.83-4.51 [facility] Work Phone: Basophil percentageon 2021 Basophils/100 WBC (Bld) 0.4 % 0-1 [facility] Work Phone: Chloride [Moles/Vol] 104 mmol/L 98-107 [facility] Work Phone: Eosinophils/100 WBC (Bld) 0.4 % 0-5 [facility] Work Phone: Glucose [Mass/Vol] 85 mg/dL 74-106 [facility] Work Phone: Neutrophils (Bld) [#/Vol] 6.2 10*3/uL 2.0-7.7 [facility] Work Phone: Neutrophils/100 WBC (Bld) 58.2 % 47-70 [facility] Work Phone: Potassium [Moles/Vol] 4.5 mmol/L 3.5-5.1 [facility] Work Phone: Sodium [Moles/Vol] 140 mmol/L 136-145 [facility] Work Phone: WBC (Bld) [#/Vol] 10.5 10*3/uL 4.4-11.0 [facility]: Blood erythrocytes count (nu mber/volume)on 04-26-2022 RBC (Bld) [#/Vol] 4.30 10*6/uL 4.6-6.2 [facility] Work Phone: Blood hemoglobin measurement (mass/volume)on 04-26-2022 Hemoglobin (Bld) [Mass/Vol] 13.9 g/dL 13.0-16.5 [facility] Work Phone: Blood lymphocytes/100 leukoc yteson 04-26-2022 Lymphocytes/100 WBC (Bld) 34.3 % 19-41 [facility] Work Phone: Blood monocytes/100 leukocyt eson 04-26-2022 Monocytes/100 WBC (Bld) 6.3 % 0-10 [facility] Work Phone: Blood platelet mean volumeon 04-26-2022 Platelet mean volume (Bld) [Entitic vol] 8.9 fL 6.2-12.0 [facility] Work Phone: Determination of erythrocyte mean corpuscular volume (MCV)on 04-26-2022 MCV (RBC) [Entitic vol] 96.0 fL 80-94 [facility] Work Phone: [phone] Hematocrit Auto (Bld) [Volum e fraction]on 04-26-2022 Hematocrit (Bld) [Volume fraction] 41.3 % 40-54 [facility] Work Phone: [phone] Laboratory - Chemistry and C hemistry - challengeon 04-26-2022 CO2 [Moles/Vol] 29.0 mmol/L 21.0-32.0 [facility] Work Phone: [phone] Urea nitrogen/Creatinine [Mass ratio] 18.4 mg/mg 10-20 [facility] Work Phone: [phone] Laboratory - Hematology and Cell countson 04-26-2022 Erythrocyte distribution width (RBC) [Entitic vol] 44.7 fL 35.1-43.9 [facility] Work Phone: [phone] Erythrocyte distribution width (RBC) [Ratio] 12.7 % 11.6-14.6 [facility] Work Phone: [phone] Immature granulocytes/100 WBC (Bld) 0.400 % 0.0-0.9 [facility] Work Phone: [phone] Comment on above: IG% - Immature Granu locytes (promyelocytes, myelocytes and metamyelocytes) > 1% indicates that a LEFT SHIFT is Present. MCH (RBC) [Entitic mass] 32.3 pg 27.0-32.0 [facility] Work Phone: [phone] Nucleated RBC/100 WBC (Bld) [Ratio] 0 % 0-5 [facility] Work Phone: [phone] MCHC Auto (RBC) [Mass/Vol]on 04-26-2022 MCHC (RBC) [Mass/Vol] 33.7 g/dL 32-36 [facility] Work Phone: [phone] No Panel Informationon 04-26 Estimated GFR (MDRD) Amer 90 mL/min >60 [facility] Work Phone: [phone] Comment on above: GFR Calc Estimated GFR (MDRD) Non-Af Amer 75 mL/min >60 [facility] Work Phone: Comment on above: Non- GFR Calc Platelets bldon 04-26-2022 Platelets (Bld) [#/Vol] 232 10*3/uL 150-450 [facility] Work Phone: Serum or plasma calcium adrian urement (mass/volume)on 04-26-2022 Calcium [Mass/Vol] 9.2 mg/dL 8.5-10.1 [facility] Work Phone: Serum or plasma creatinine m easurement (mass/volume)on 04-26-2022 Creatinine [Mass/Vol] 1.03 mg/dL 0.70-1.30 [facility] Work Phone: Comment on above: The validity of the calculated GFR & GFRAA in patients over 70 years has not been determined. Clinical correlation is essential. Serum or plasma urea nitroge n measurement (mass/volume)on 04-26-2022 Urea nitrogen [Mass/Vol] 19 mg/dL 7-18 [facility] Work Phone: Thin prep Papanicolaou smear with manual screeningon 04-26-2022 Thin prep Papanicolaou smear with manual screening 7 5-15 [facility] Work Phone: No Panel Informationon 01-30 Prostate Specific Antigen Total < 0.01 ng/mL 0.0-4.0 [facility] Work Phone: Comment on above: This test was perfor med using the TPSA assay method [facility]. Values obtained with differentassay methods cannot be used interchangably.When changing PSA assays in the course of monitoring apatient, additional sequential testing should be carriedout to confirm baseline values. CNOVon 07-15-2019 CNOV Office Visit ([facility] ) HEATHER ISRAEL ([id number]) 1945 M Date Time Provider Department 07/15/19 9:00 AM TEZ WILLS (NAIN) [facility] During your visit today, we recorded the following information about you: Temperature Pulse Respiration Blood pressure 99.1 degrees 78/minute 16/minute 136/82 Weight 88 kg Tez Wills APRN.CNP 07/15/2019 9:30 AM Signed This note was created using [employer]. Subjective Heather Israel is a 73 year old male. The history is provided by the patient. Cough This is a new problem. Episode onset: 10 days. The problem has been gradually worsening. The cough is productive of sputum. Maximum temperature: tactile last night. The fever has been present for less than 1 day. Associated symptoms include rhinorrhea and sore throat. Pertinent negatives include no chest pain, no ear pain, no shortness of breath and no wheezing. He is not a smoker. His past medical history does not include pneumonia. Review of Systems Constitutional: Positive for fever (tactile last night). HENT: Positive for congestion, rhinorrhea and sore throat. Negative for ear pain and sinus pain. Respiratory: Positive for cough. Negative for chest tightness, shortness of breath and wheezing. Cardiovascular: Negative for chest pain. Allergic/Immunologic: Negative for immunocompromised state. PAST MEDICAL HISTORY Diagnosis Date - ASHD (arteriosclerotic heart disease) - HTN (hypertension) - Other and unspecified hyperlipidemia - Right inguinal hernia PAST SURGICAL HISTORY Procedure Laterality Date - HERNIA REPAIR HX 01/22/2017 - LAP REPAIR INTIAL INGUINAL HERNIA 06/02/07 - PAST SURGICAL HISTORY OF knee, right - PAST SURGICAL HISTORY OF compression fx - PROSTATECTOMY;RADICAL RETROPUBIC 06/2016 - REMOVAL OF TONSILS,<12 Y/O ALLERGIES Patient has no known allergies. MEDICATIONS sildenafil (VIAGRA) 100 mg tablet Take one tablet by mouth 1 hour prior to sexual activity. acetaminophen (TYLENOL) 500 mg tablet Take 1 tablet by mouth every 8 hours as needed. losartan (COZAAR) 25 mg tablet Take 25 mg by mouth once daily. metoprolol succinate ER (TOPROL XL) 25 mg 24 hr tablet Take 25 mg by mouth once daily. clopidogrel (PLAVIX) 75 mg tablet Take 75 mg by mouth once daily. aspirin, enteric coated (ASPIRIN, ENTERIC COATED) 81 mg EC tablet Take 81 mg by mouth once daily. atorvastatin (LIPITOR) 10 mg ORAL Tab Take one(1) tablet daily. losartan (COZAAR) 25 mg tablet LOSARTAN POTASSIUM 25 MG TABS metoprolol succinate ER (TOPROL XL) 25 mg 24 hr tablet TOPROL XL 25 MG [id number] sildenafil, antihypertensive, (REVATIO) 20 mg tablet Take 20 mg by mouth once daily. sildenafil (VIAGRA) 100 mg tablet Take 1 tablet by mouth once daily. Take 1 daily as desired ketorolac (TORADOL) 10 mg tablet Take 1 tablet by mouth every 6 hours as needed. FAMILY HISTORY Problem Relation Age of Onset - Cancer Paternal Grandfather - Diabetes Mother - Hypertension Mother - Heart Father Social History Tobacco Use - Smoking status: Former Smoker Types: Cigarettes, Cigars Last attempt to quit: 08/26/1974 Years since quittin.9 - Smokeless tobacco: Never Used Substance Use Topics - Alcohol use: Yes Comment: modrate - Drug use: No Objective BP 136/82 Pulse 78 Temp 37.3 ?C (99.1 ?F) (Tympanic) Resp 16 Wt 88 kg (194 lb) SpO2 95% BMI 27.06 kg/m? Physical Exam Vitals signs and nursing note reviewed. Constitutional: Appearance: He is well-developed. HENT: Right Ear: Tympanic membrane and ear canal normal. Left Ear: Tympanic membrane and ear canal normal. Nose: Congestion present. Right Sinus: No maxillary sinus tenderness or frontal sinus tenderness. Left Sinus: No maxillary sinus tenderness or frontal sinus tenderness. Mouth/Throat: Pharynx: Uvula midline. Cardiovascular: Rate and Rhythm: Normal rate and regular rhythm. Heart sounds: Normal heart sounds. Pulmonary: Effort: Pulmonary effort is normal. Breath sounds: Normal breath sounds. Comments: No cough noted Lymphadenopathy: Cervical: No cervical adenopathy. Skin: General: Skin is warm and dry. Neurological: Mental Status: He is alert and oriented to person, place, and time. Assessment and Plan 1. Acute non-recurrent sinusitis, unspecified location Complete entire course of antibiotic. Tessalon as needed at bedtime. mucinex DM during the day. Nasal saline/rinses, humidified air/steam, increased fluids, rest. If no improvement in 2-3 days, new/worsening, return or see PCP for further evaluation. All questions answered, verbalized understanding. - doxycycline hyclate (VIBRAMYCIN) 100 mg capsule; Take 1 capsule by mouth twice daily for 7 days. Dispense: 14 capsule; Refill: 0 2. Acute bronchitis, unspecified organism - doxycycline hyclate (VIBRAMYCIN) 100 mg capsule; Take 1 capsule by mouth twice daily for 7 days. Dispense: 14 capsule; Refill: 0 - Benzonatate 200 mg capsule; Take 1 capsule by mouth at bedtime as needed. Dispense: 10 capsule; Refill: 0 Tez Wills APRN.CNP 07/15/2019 9:17 AM Signed [facility] PATIENT INFO BRONCHITIS OVERVIEW Bronchitis develops when there is swelling and irritation of the bronchi, the large tubes that carry air to the lungs. There are two types of bronchitis: acute (sudden onset) and chronic (long-standing). Acute bronchitis often occurs with a viral infection, such as the common cold, and is sometimes called a chest cold. The most common symptom of acute bronchitis is a nagging cough. Treatment of acute bronchitis usually involves treating the symptoms, such as sore throat and congestion. Antibiotics do not help to eliminate acute bronchitis caused by a virus. Antiviral agents are useful in some cases of acute bronchitis due to influenza, but there are antiviral agents for other forms of viral bronchitis. BRONCHITIS CAUSES Most cases of bronchitis are caused by a viral infection of the upper airways, such as the common cold or the flu. Less commonly, a bacterium such as pertussis (whooping cough) is the cause. BRONCHITIS SYMPTOMS The most common symptoms of acute bronchitis include: ? A persistent cough; this may last 10 to 20 days ? Some people cough up mucus, which may be clear, yellow, or green in color Fever is not common in people with acute bronchitis. However, having a fever can be a sign of another condition, such as the flu or pneumonia. Conditions with similar features ? There are other conditions that have symptoms similar to those of acute bronchitis. ? Chronic cough ? A persistent cough that lasts more than eight weeks is considered a chronic cough, which is discussed in detail elsewhere. ? Chronic bronchitis ? Chronic bronchitis is defined as a cough that occurs on most days of the month for at least three months of the year during two consecutive years. ? Pneumonia ? Signs of pneumonia include fever and a fast heart and breathing rate. ? Postnasal drip ? Postnasal drip occurs when secretions drain from the sinuses into the throat. This can cause the throat to feel irritated, which causes you to feel like you need to clear your throat frequently. Postnasal drip can be caused by the common cold, allergies, sinusitis, or environmental irritants. BRONCHITIS DIAGNOSIS Most people who have a persistent cough after an upper respiratory infection (cold) do not need to see a healthcare provider. Diagnostic testing, such as x-rays, cultures, and blood tests, are not usually needed for people with acute bronchitis. However, testing may be recommended if your diagnosis is not clear based upon your examination or if another condition, such as pneumonia, is suspected. When to seek help ? You should call your healthcare provider if you have any of the following: ? Fever (temperature greater than 100.4? F or 38? C) ? A cough that lasts longer than 10 days ? Chest pain with coughing, difficulty breathing, or coughing up blood ? A barking cough that makes it hard to speak, especially if it persists ? Cough accompanied by unexplained weight loss People who are older than 75 do not always have a fever or other concerning symptoms. If you are over 75 years and you have a persistent cough, you should call your clinician to determine if and when an office visit is recommended. BRONCHITIS TREATMENT Relief of symptoms ? There is no specific treatment for bronchitis, but there are a few treatments available for the common cold. ? A nonsteroidal antiinflammatory drug (ibuprofen, naproxen), aspirin, or acetaminophen (Tylenol?) can help to relieve the pain of a sore throat or headache. ? Pseudoephedrine is a decongestant that can improve nasal congestion. Most drugstores in the [place] carry pseudoephedrine behind the counter, so you must ask for it from the pharmacist (a prescription is not required). Other decongestants, such as phenylephrine, are not as effective as pseudoephedrine. Antihistamines such as diphenhydramine (Benadryl?) may also help, but can cause side effects such as drowsiness and drying of the eyes, nose, and mouth. ? Heated, humidified, air can improve symptoms of nasal congestion and runny nose, and has few to no side effects. ? Cough suppressants such as dextromethorphan may be helpful. Antibiotics ? Antibiotics are NOT helpful for most people with bronchitis since the illness is typically caused by a virus. Antibiotics treat bacterial, not viral infections. Antibiotics may be helpful for some patients with other chronic diseases. Many people request antibiotics in the hopes that it will get rid of the cough, and some people even think that antibiotics have helped on previous occasions. However, there is no benefit of antibiotics for most cases of bronchitis. PREVENTING THE SPREAD OF ILLNESS Hand washing is an essential and highly effective way to prevent the spread of infection. Wet your hands with water and plain soap and rub them together for 15 to 30 seconds. Pay special attention to the fingernails, between the fingers, and the wrists. Rinse your hands thoroughly, and dry with a single use towel. Alcohol-based hand rubs are a good alternative for disinfecting hands if a sink is not available. Spread the hand rub over the entire surface of your hands, fingers, and wrists until dry. You can use hand rubs repeatedly without irritating the skin or losing effectiveness. Hand rubs are available as a liquid or wipe in small, portable sizes that are easy to carry in a pocket or handbag. When a sink is available, you should wash visibly soiled hands with soap and water. Wash your hands before preparing food and eating, and after going to the bathroom, and after coughing, blowing the nose, or sneezing. While it is not always possible to limit contact with people who are ill, avoid touching your eyes, nose, or mouth after direct contact, when possible. In addition, use a tissue to cover your mouth when sneezing or coughing. Throw away used tissues promptly and then wash your hands. Sneezing/coughing into the sleeve of your clothing (at the inner elbow) is another way of containing sprays of saliva and secretions and does not contaminate your hands. Sneezing and coughing without covering your mouth can spread infection to anyone within 6 feet. Acute Sinusitis Each of us has four paired cavities (spaces) in our head that are connected to the nose by narrow channels. These cavities, known as sinuses, produce thin mucus that drains out of the channels of the nose. This drainage helps keep the nose clean and free of particles and bacteria. Normally, sinuses are filled with air. But when sinuses become blocked and filled with fluid, bacteria can grow and cause an infection (bacterial sinusitis). Conditions that cause sinus blockage include: ? the common cold ? allergic rhinitis (swelling of the lining of the nose due to allergies) ? nasal polyps (small growths in the lining of the nose), or ? a deviated septum (the wall between the left and right nostril is crooked). Allergies, such as hay fever, can also cause swelling and poor drainage of the sinuses. One confusing factor to consider is that many people with ?sinus headaches? are actually suffering from migraines. In fact, in large clinical studies, up to 90% of people who reported sinus headaches were diagnosed with migraines instead. Migraines can cause headaches in combination with facial pressure over the sinuses, a runny nose, and nasal congestion. If you have symptoms that involve the sinuses, it may be difficult to tell if you have sinusitis, a cold, nasal allergy, or even a migraine. This article will describe the symptoms, diagnosis, and treatment of sinusitis, and how to tell the difference between sinusitis, cold, migraines, and nasal allergy. What is sinusitis? Sinusitis is an inflammation, or swelling, of the tissue lining the sinuses. There are two types of sinusitis: ? Acute bacterial sinusitis: a sudden onset of cold symptoms such as runny nose, stuffy nose, and facial pain that does not go away after 10 days, or symptoms that seem to begin improving but return worse than the initial symptoms. It responds well to antibiotics and decongestants. ? Chronic sinusitis: a condition defined by nasal congestion, drainage, facial pain/pressure, and decreased sense of smell for at least 12 weeks. Who gets sinusitis? Every year, approximately 1 billion Americans have at least one episode of viral sinusitis. About 37 million will develop a bacterial sinusitis. People who have the following conditions have a higher risk of sinusitis: ? Nasal mucus membrane swelling, as from a common cold or allergies ? Blockage of drainage ducts, leading to trapping of mucus ? Structure differences that narrow the drainage ducts ? Conditions that result in an increased risk of infection ? Polyps (growths) In children, common factors in the environment that contribute to sinusitis include allergies, illness from other children at day care or school, and smoke in the environment. In adults, the contributing factors are most frequently viral infections, allergies, and smoking. What are the signs and symptoms of acute sinusitis? The primary symptoms of acute sinusitis include: ? Facial pain/pressure/tendern ess ? Nasal stuffiness ? Nasal discharge (thick yellow or green discharge from nose), especially if it is long-lasting. These also may be present with viral illness. ? Loss of smell and taste ? Cough/congestion Additional symptoms may include: ? Fever of 102? or higher ? Ear pain ? Headache ? Bad breath ? Fatigue ? Ache in upper jaw and teeth How is sinusitis diagnosed? To diagnose sinusitis, your doctor will discuss your symptoms and examine your nose for swelling and drainage. Your personal history is most important in diagnosing sinusitis. A physical exam of the ears, nose, and throat is performed to look for signs of obstruction (blockage) or infection. Some patients may have conditions that may need to be referred to a specialist, such as an ear, nose, and throat (ENT) physician. How is sinusitis treated? Acute sinusitis. If you have a simple sinusitis infection, your health care provider may recommend treatment with [id number] medications for cold and allergy, nasal saline irrigation, and drinking fluids (as most sinusitis is viral). Use of prescription intranasal steroid sprays might be added to help control symptoms. However, non-prescription drops or sprays should not be used beyond 5 days -- or they may actually increase congestion. If symptoms do not improve after at least 10 days, if the symptoms seem to be getting worse, or if medications for cold or allergy do not improve symptoms, a bacterial infection may be causing the sinusitis. In this case, antibiotics are given for 7 days in adults and 10 days in children. Antibiotics should improve symptoms within 48 hours. Chronic sinusitis. Treating chronic sinusitis begins with controlling the underlying condition, which is most often allergies. Standard treatments include intranasal steroid sprays, topical antihistamine sprays, or antihistamine pills, and leukotriene antagonists such as montelukast. Often you will be encouraged to rinse the nose with saline irrigations. Sometimes medications may be added to these irrigations. If sinusitis is not controlled, the next step is a visit with an Ear, Nose and Throat Specialist. Will I need to make lifestyle changes? If you have indoor allergies, avoiding triggers -- such as animal dander and dust mites ? is recommended in addition to medications. Smoking is never recommended, but if you do smoke, strongly consider a program to help you stop smoking, as this may be the main reason you have sinus infections. No special diet is required, but drinking extra fluids helps to thin nasal secretions. What are the symptoms of the common cold? An upper respiratory infection (the common cold) is usually caused by a virus that infects the nose and throat. Most upper respiratory infections are not bacterial and do not respond to antibiotics. A cold may cause swelling in the sinuses, preventing the outflow of mucus. Cold symptoms include nasal congestion, runny nose, post-nasal drip (dhym-wu-lwmb release of nasal fluid into the back of the throat), headache, achiness, and fatigue. Cough and fever may also go along with these symptoms. Cold symptoms usually build, peak, and slowly disappear. No treatment is necessary for a cold, but some medications can ease symptoms. For example, decongestants may decrease drainage and open the nasal passages. Analgesics (pain relievers) may help with fever and headache. Cough medication may help, as well. Colds will typically last from a few days to about a week. What is the harm in getting an antibiotic for a common cold? Viral infections like the common cold are not cured by antibiotics. Taking an antibiotic for a viral infection unnecessarily puts you at risk for side effects related to the antibiotic. In addition, the overuse of antibiotics leads to antibiotic resistance, which may make future infections more difficult to treat. Finally, the use of inappropriate medication increases health care costs unnecessarily. What are the symptoms of nasal allergy? Symptoms of nasal allergy include: ? Sneezing ? Itchy nose ? Clear, watery nasal discharge ? Nasal blockage ? Feeling fatigued How is nasal allergy treated? Usually medications are prescribed to relieve symptoms. These may include antihistamines, with or without decongestants, or steroid nasal sprays. Other nasal sprays, which deliver antihistamines or cromolyn sodium, are sometimes helpful. If allergy symptoms are chronic (long-term), allergy testing and allergy shots (immunotherapy) may be helpful. How can I tell if I have a sinus infection, cold, or nasal allergy? Although the symptoms of sinusitis and nasal allergy may occur with a common cold, in general, cold-related symptoms disappear within 1 week. The point at which a normal cold ends and a sinus condition begins is not always easy to know. If you are fighting off a cold and develop symptoms of a sinus infection or nasal allergy, see your health care provider. You will be asked to describe your symptoms and medical history. ? How do I know if my sinus condition requires the care of an ear, nose, and throat specialist? Most routine sinus conditions are easily cared for by primary care physicians. If, however, you are bothered by ongoing abnormal symptoms, recurring infections, or have abnormal X-ray findings or complications, a referral to a specialist is appropriate. References ? Alex Lugo al., IDSA Clinical Practice Guideline for Acute Bacterial Rhinosinusitis in Children and Adults. Clinical Infectious Diseases; 2012;54(8):0574-0687. ? Amber Fox, Sinusitis: Allergies, antibiotics, aspirin, asthma. [facility] Journal of Medicine 2006; 73(7): 671-678 ? National Home of Allergy and Infectious [employer]. Sinusitis (Sinus Infection) Accessed 07/05/2015. ? [place] [employer], [employer]. Sinusitis Accessed 07/05/2015. ? [place] [employer]. Sinus Information Accessed 07/05/2015. ? Gregory Marquis., Prevalence of migraine in patients with a history of self-reported or physician-diagnosed sinus headache. Arch Protection Specialist Med, 2004. 164(16):1769-72. ? Copyright 4984-4274 [employer] [facility]. All rights reserved. Referring Provider: SELF [200] Allergies As of Date: 07/15/2019 (No Known Allergies) Date Reviewed: 07/15/2019 Reviewed by: Ayleen Lu Ma - Fully Assessed Reason for Visit: Chest Congestion [236] Cmt: cough, nasal congestion and drainage x 10 days Primary Visit Diagnosis:Acute non-recurrent sinusitis, unspecified location [J01.90] Other Visit Diagnosis:Acute bronchitis, unspecified organism [J20.9] Order(s):doxycycline hyclate (VIBRAMYCIN) 100 mg capsuleTake 1 capsule by mouth twice daily for 7 days.Disp: 14 capsuleRfl: 0 Benzonatate 200 mg capsuleTake 1 capsule by mouth at bedtime as needed.Disp: 10 capsuleRfl: 0 Prescriptions as of 07/15/2019 Sig: SILDENAFIL 100 MG TABLET Take one tablet by mouth 1 ho* ACETAMINOPHEN 500 MG TABLET Take 1 tablet by mouth every * LOSARTAN 25 MG TABLET Take 25 mg by mouth once fede* METOPROLOL SUCCINATE ER 25 MG* Take 25 mg by mouth once fede* CLOPIDOGREL 75 MG TABLET Take 75 mg by mouth once fede* ASPIRIN 81 MG TABLET,DELAYED * Take 81 mg by mouth once fede* LIPITOR 10 MG TABLET Take one(1) tablet daily. LOSARTAN 25 MG TABLET LOSARTAN POTASSIUM 25 MG TABS METOPROLOL SUCCINATE ER 25 MG* TOPROL XL 25 MG [id number] DOXYCYCLINE HYCLATE 100 MG CA* Take 1 capsule by mouth twice* BENZONATATE 200 MG CAPSULE Take 1 capsule by mouth at be* SILDENAFIL (ANTIHYPERTENSIVE)* Take 20 mg by mouth once fede* SILDENAFIL 100 MG TABLET Take 1 tablet by mouth once d* Medication notes this encounter LOSARTAN 25 MG TABLET >> Ayleen Lu Ma 07/15/2019 9:03 AM >> AYLEEN LU MA SatJul 15, 2019 9:03 AM duplicate METOPROLOL SUCCINATE ER 25 MG TABLET,EXTENDED RELEASE 24 HR >> Ayleen Lu Ma 07/15/2019 9:03 AM >> AYLEEN LU MA SatJul 15, 2019 9:03 AM duplicate Problem List As Of Date 07/15/2019 Noted Resolved Malignant neoplasm of prostate (HCC) [C61] 06/28/2016 Coronary artery disease involving [place] *06/29/2016 Right inguinal hernia [K40.90] 01/02/2017 Other instructions from your clinician: EXPRESS CARE PATIENT INFO BRONCHITIS OVERVIEW Bronchitis develops when there is swelling and irritation of the bronchi, the large tubes that carry air to the lungs. There are two types of bronchitis: acute (sudden onset) and chronic (long-standing). Acute bronchitis often occurs with a viral infection, such as the common cold, and is sometimes called a chest cold. The most common symptom of acute bronchitis is a nagging cough. Treatment of acute bronchitis usually involves treating the symptoms, such as sore throat and congestion. Antibiotics do not help to eliminate acute bronchitis caused by a virus. Antiviral agents are useful in some cases of acute bronchitis due to influenza, but there are antiviral agents for other forms of viral bronchitis. BRONCHITIS CAUSES Most cases of bronchitis are caused by a viral infection of the upper airways, such as the common cold or the flu. Less commonly, a bacterium such as pertussis (whooping cough) is the cause. BRONCHITIS SYMPTOMS The most common symptoms of acute bronchitis include: ? A persistent cough; this may last 10 to 20 days ? Some people cough up mucus, which may be clear, yellow, or green in color Fever is not common in people with acute bronchitis. However, having a fever can be a sign of another condition, such as the flu or pneumonia. Conditions with similar features ? There are other conditions that have symptoms similar to those of acute bronchitis. ? Chronic cough ? A persistent cough that lasts more than eight weeks is considered a chronic cough, which is discussed in detail elsewhere. ? Chronic bronchitis ? Chronic bronchitis is defined as a cough that occurs on most days of the month for at least three months of the year during two consecutive years. ? Pneumonia ? Signs of pneumonia include fever and a fast heart and breathing rate. ? Postnasal drip ? Postnasal drip occurs when secretions drain from the sinuses into the throat. This can cause the throat to feel irritated, which causes you to feel like you need to clear your throat frequently. Postnasal drip can be caused by the common cold, allergies, sinusitis, or environmental irritants. BRONCHITIS DIAGNOSIS Most people who have a persistent cough after an upper respiratory infection (cold) do not need to see a healthcare provider. Diagnostic testing, such as x-rays, cultures, and blood tests, are not usually needed for people with acute bronchitis. However, testing may be recommended if your diagnosis is not clear based upon your examination or if another condition, such as pneumonia, is suspected. When to seek help ? You should call your healthcare provider if you have any of the following: ? Fever (temperature greater than 100.4? F or 38? C) ? A cough that lasts longer than 10 days ? Chest pain with coughing, difficulty breathing, or coughing up blood ? A barking cough that makes it hard to speak, especially if it persists ? Cough accompanied by unexplained weight loss People who are older than 75 do not always have a fever or other concerning symptoms. If you are over 75 years and you have a persistent cough, you should call your clinician to determine if and when an office visit is recommended. BRONCHITIS TREATMENT Relief of symptoms ? There is no specific treatment for bronchitis, but there are a few treatments available for the common cold. ? A nonsteroidal antiinflammatory drug (ibuprofen, naproxen), aspirin, or acetaminophen (Tylenol?) can help to relieve the pain of a sore throat or headache. ? Pseudoephedrine is a decongestant that can improve nasal congestion. Most drugstores in the [place] carry pseudoephedrine behind the counter, so you must ask for it from the pharmacist (a prescription is not required). Other decongestants, such as phenylephrine, are not as effective as pseudoephedrine. Antihistamines such as diphenhydramine (Benadryl?) may also help, but can cause side effects such as drowsiness and drying of the eyes, nose, and mouth. ? Heated, humidified, air can improve symptoms of nasal congestion and runny nose, and has few to no side effects. ? Cough suppressants such as dextromethorphan may be helpful. Antibiotics ? Antibiotics are NOT helpful for most people with bronchitis since the illness is typically caused by a virus. Antibiotics treat bacterial, not viral infections. Antibiotics may be helpful for some patients with other chronic diseases. Many people request antibiotics in the hopes that it will get rid of the cough, and some people even think that antibiotics have helped on previous occasions. However, there is no benefit of antibiotics for most cases of bronchitis. PREVENTING THE SPREAD OF ILLNESS Hand washing is an essential and highly effective way to prevent the spread of infection. Wet your hands with water and plain soap and rub them together for 15 to 30 seconds. Pay special attention to the fingernails, between the fingers, and the wrists. Rinse your hands thoroughly, and dry with a single use towel. Alcohol-based hand rubs are a good alternative for disinfecting hands if a sink is not available. Spread the hand rub over the entire surface of your hands, fingers, and wrists until dry. You can use hand rubs repeatedly without irritating the skin or losing effectiveness. Hand rubs are available as a liquid or wipe in small, portable sizes that are easy to carry in a pocket or handbag. When a sink is available, you should wash visibly soiled hands with soap and water. Wash your hands before preparing food and eating, and after going to the bathroom, and after coughing, blowing the nose, or sneezing. While it is not always possible to limit contact with people who are ill, avoid touching your eyes, nose, or mouth after direct contact, when possible. In addition, use a tissue to cover your mouth when sneezing or coughing. Throw away used tissues promptly and then wash your hands. Sneezing/coughing into the sleeve of your clothing (at the inner elbow) is another way of containing sprays of saliva and secretions and does not contaminate your hands. Sneezing and coughing without covering your mouth can spread infection to anyone within 6 feet. Acute Sinusitis Each of us has four paired cavities (spaces) in our head that are connected to the nose by narrow channels. These cavities, known as sinuses, produce thin mucus that drains out of the channels of the nose. This drainage helps keep the nose clean and free of particles and bacteria. Normally, sinuses are filled with air. But when sinuses become blocked and filled with fluid, bacteria can grow and cause an infection (bacterial sinusitis). Conditions that cause sinus blockage include: ? the common cold ? allergic rhinitis (swelling of the lining of the nose due to allergies) ? nasal polyps (small growths in the lining of the nose), or ? a deviated septum (the wall between the left and right nostril is crooked). Allergies, such as hay fever, can also cause swelling and poor drainage of the sinuses. One confusing factor to consider is that many people with ?sinus headaches? are actually suffering from migraines. In fact, in large clinical studies, up to 90% of people who reported sinus headaches were diagnosed with migraines instead. Migraines can cause headaches in combination with facial pressure over the sinuses, a runny nose, and nasal congestion. If you have symptoms that involve the sinuses, it may be difficult to tell if you have sinusitis, a cold, nasal allergy, or even a migraine. This article will describe the symptoms, diagnosis, and treatment of sinusitis, and how to tell the difference between sinusitis, cold, migraines, and nasal allergy. What is sinusitis? Sinusitis is an inflammation, or swelling, of the tissue lining the sinuses. There are two types of sinusitis: ? Acute bacterial sinusitis: a sudden onset of cold symptoms such as runny nose, stuffy nose, and facial pain that does not go away after 10 days, or symptoms that seem to begin improving but return worse than the initial symptoms. It responds well to antibiotics and decongestants. ? Chronic sinusitis: a condition defined by nasal congestion, drainage, facial pain/pressure, and decreased sense of smell for at least 12 weeks. Who gets sinusitis? Every year, approximately 1 billion Americans have at least one episode of viral sinusitis. About 37 million will develop a bacterial sinusitis. People who have the following conditions have a higher risk of sinusitis: ? Nasal mucus membrane swelling, as from a common cold or allergies ? Blockage of drainage ducts, leading to trapping of mucus ? Structure differences that narrow the drainage ducts ? Conditions that result in an increased risk of infection ? Polyps (growths) In children, common factors in the environment that contribute to sinusitis include allergies, illness from other children at day care or school, and smoke in the environment. In adults, the contributing factors are most frequently viral infections, allergies, and smoking. What are the signs and symptoms of acute sinusitis? The primary symptoms of acute sinusitis include: ? Facial pain/pressure/tendern ess ? Nasal stuffiness ? Nasal discharge (thick yellow or green discharge from nose), especially if it is long-lasting. These also may be present with viral illness. ? Loss of smell and taste ? Cough/congestion Additional symptoms may include: ? Fever of 102? or higher ? Ear pain ? Headache ? Bad breath ? Fatigue ? Ache in upper jaw and teeth How is sinusitis diagnosed? To diagnose sinusitis, your doctor will discuss your symptoms and examine your nose for swelling and drainage. Your personal history is most important in diagnosing sinusitis. A physical exam of the ears, nose, and throat is performed to look for signs of obstruction (blockage) or infection. Some patients may have conditions that may need to be referred to a specialist, such as an ear, nose, and throat (ENT) physician. How is sinusitis treated? Acute sinusitis. If you have a simple sinusitis infection, your health care provider may recommend treatment with oxij-ntj-[id number] medications for cold and allergy, nasal saline irrigation, and drinking fluids (as most sinusitis is viral). Use of prescription intranasal steroid sprays might be added to help control symptoms. However, non-prescription drops or sprays should not be used beyond 5 days -- or they may actually increase congestion. If symptoms do not improve after at least 10 days, if the symptoms seem to be getting worse, or if medications for cold or allergy do not improve symptoms, a bacterial infection may be causing the sinusitis. In this case, antibiotics are given for 7 days in adults and 10 days in children. Antibiotics should improve symptoms within 48 hours. Chronic sinusitis. Treating chronic sinusitis begins with controlling the underlying condition, which is most often allergies. Standard treatments include intranasal steroid sprays, topical antihistamine sprays, or antihistamine pills, and leukotriene antagonists such as montelukast. Often you will be encouraged to rinse the nose with saline irrigations. Sometimes medications may be added to these irrigations. If sinusitis is not controlled, the next step is a visit with an Ear, Nose and Throat Specialist. Will I need to make lifestyle changes? If you have indoor allergies, avoiding triggers -- such as animal dander and dust mites ? is recommended in addition to medications. Smoking is never recommended, but if you do smoke, strongly consider a program to help you stop smoking, as this may be the main reason you have sinus infections. No special diet is required, but drinking extra fluids helps to thin nasal secretions. What are the symptoms of the common cold? An upper respiratory infection (the common cold) is usually caused by a virus that infects the nose and throat. Most upper respiratory infections are not bacterial and do not respond to antibiotics. A cold may cause swelling in the sinuses, preventing the outflow of mucus. Cold symptoms include nasal congestion, runny nose, post-nasal drip (wouu-tr-toah release of nasal fluid into the back of the throat), headache, achiness, and fatigue. Cough and fever may also go along with these symptoms. Cold symptoms usually build, peak, and slowly disappear. No treatment is necessary for a cold, but some medications can ease symptoms. For example, decongestants may decrease drainage and open the nasal passages. Analgesics (pain relievers) may help with fever and headache. Cough medication may help, as well. Colds will typically last from a few days to about a week. What is the harm in getting an antibiotic for a common cold? Viral infections like the common cold are not cured by antibiotics. Taking an antibiotic for a viral infection unnecessarily puts you at risk for side effects related to the antibiotic. In addition, the overuse of antibiotics leads to antibiotic resistance, which may make future infections more difficult to treat. Finally, the use of inappropriate medication increases health care costs unnecessarily. What are the symptoms of nasal allergy? Symptoms of nasal allergy include: ? Sneezing ? Itchy nose ? Clear, watery nasal discharge ? Nasal blockage ? Feeling fatigued How is nasal allergy treated? Usually medications are prescribed to relieve symptoms. These may include antihistamines, with or without decongestants, or steroid nasal sprays. Other nasal sprays, which deliver antihistamines or cromolyn sodium, are sometimes helpful. If allergy symptoms are chronic (long-term), allergy testing and allergy shots (immunotherapy) may be helpful. How can I tell if I have a sinus infection, cold, or nasal allergy? Although the symptoms of sinusitis and nasal allergy may occur with a common cold, in general, cold-related symptoms disappear within 1 week. The point at which a normal cold ends and a sinus condition begins is not always easy to know. If you are fighting off a cold and develop symptoms of a sinus infection or nasal allergy, see your health care provider. You will be asked to describe your symptoms and medical history. ? How do I know if my sinus condition requires the care of an ear, nose, and throat specialist? Most routine sinus conditions are easily cared for by primary care physicians. If, however, you are bothered by ongoing abnormal symptoms, recurring infections, or have abnormal X-ray findings or complications, a referral to a specialist is appropriate. References ? Angelic Lugo et al., IDSA Clinical Practice Guideline for Acute Bacterial Rhinosinusitis in Children and Adults. Clinical Infectious Diseases; 2012;54(8):8433-3034. ? Amber Fox, Sinusitis: Allergies, antibiotics, aspirin, asthma. [facility] Journal of Medicine 2006; 73(7): 671-678 ? National Home of Allergy and Infectious Diseases. Sinusitis (Sinus Infection) Accessed 07/05/2015. ? [place] [employer], [employer]. Sinusitis Accessed 07/05/2015. ? [place] [employer]. Sinus Information Accessed 07/05/2015. ? Gregory Marquis., Prevalence of migraine in patients with a history of self-reported or physician-diagnosed sinus headache. Arch Protection Specialist Med, 2003. 164(16):1769-72. ? Copyright 1813-8649 [employer] [facility]. All rights reserved. Prescriptions ordered this encounter Disp Refills Start End DOXYCYCLINE HYCLATE 100 MG CAPSULE 14 c* 0 07/15/2019 07/22/2019 Route: ORAL Sig: Take 1 capsule by mouth twice daily for 7 days. BENZONATATE 200 MG CAPSULE 10 c* 0 07/15/2019 Route: ORAL Sig: Take 1 capsule by mouth at bedtime as needed. Medications Discontinued During This Encounter ketorolac (TORADOL) 10 mg tablet 20 t* 0 07/16/2016 07/15/2019 Class: Print RX Route: ORAL Sig: Take 1 tablet by mouth every 6 hours as needed. Patient not taking: Reported on 07/15/2019 Disc: Course of therapy completed Encounter Status:Closed by ELMA COLEY.ELISE GILLETTEN on 07/15/19 Normal [facility] PROGRESSon 07-15-2019 PROGRESS HNO ID: [id number] Author: Tez Menendez) Elma Service: ? Author Type: Nurse Practitioner Type: Progress Notes Filed: 07/15/2019 9:30 AM Note Text: This note was created using M[employer]. Subjective Heather Israel is a 73 year old male. The history is provided by the patient. Cough This is a new problem. Episode onset: 10 days. The problem has been gradually worsening. The cough is productive of sputum. Maximum temperature: tactile last night. The fever has been present for less than 1 day. Associated symptoms include rhinorrhea and sore throat. Pertinent negatives include no chest pain, no ear pain, no shortness of breath and no wheezing. He is not a smoker. His past medical history does not include pneumonia. Review of Systems Constitutional: Positive for fever (tactile last night). HENT: Positive for congestion, rhinorrhea and sore throat. Negative for ear pain and sinus pain. Respiratory: Positive for cough. Negative for chest tightness, shortness of breath and wheezing. Cardiovascular: Negative for chest pain. Allergic/Immunologic: Negative for immunocompromised state. PAST MEDICAL HISTORY Diagnosis Date - ASHD (arteriosclerotic heart disease) - HTN (hypertension) - Other and unspecified hyperlipidemia - Right inguinal hernia PAST SURGICAL HISTORY Procedure Laterality Date - HERNIA REPAIR HX 01/22/2017 - LAP REPAIR INTIAL INGUINAL HERNIA 06/02/07 - PAST SURGICAL HISTORY OF knee, right - PAST SURGICAL HISTORY OF compression fx - PROSTATECTOMY;RADICAL RETROPUBIC 06/2016 - REMOVAL OF TONSILS,<12 Y/O ALLERGIES Patient has no known allergies. MEDICATIONS sildenafil (VIAGRA) 100 mg tablet Take one tablet by mouth 1 hour prior to sexual activity. acetaminophen (TYLENOL) 500 mg tablet Take 1 tablet by mouth every 8 hours as needed. losartan (COZAAR) 25 mg tablet Take 25 mg by mouth once daily. metoprolol succinate ER (TOPROL XL) 25 mg 24 hr tablet Take 25 mg by mouth once daily. clopidogrel (PLAVIX) 75 mg tablet Take 75 mg by mouth once daily. aspirin, enteric coated (ASPIRIN, ENTERIC COATED) 81 mg EC tablet Take 81 mg by mouth once daily. atorvastatin (LIPITOR) 10 mg ORAL Tab Take one(1) tablet daily. losartan (COZAAR) 25 mg tablet LOSARTAN POTASSIUM 25 MG TABS metoprolol succinate ER (TOPROL XL) 25 mg 24 hr tablet TOPROL XL 25 MG [id number] sildenafil, antihypertensive, (REVATIO) 20 mg tablet Take 20 mg by mouth once daily. sildenafil (VIAGRA) 100 mg tablet Take 1 tablet by mouth once daily. Take 1 daily as desired ketorolac (TORADOL) 10 mg tablet Take 1 tablet by mouth every 6 hours as needed. FAMILY HISTORY Problem Relation Age of Onset - Cancer Paternal Grandfather - Diabetes Mother - Hypertension Mother - Heart Father Social History Tobacco Use - Smoking status: Former Smoker Types: Cigarettes, Cigars Last attempt to quit: 08/26/1974 Years since quittin.9 - Smokeless tobacco: Never Used Substance Use Topics - Alcohol use: Yes Comment: modrate - Drug use: No Objective BP 136/82 Pulse 78 Temp 37.3 ?C (99.1 ?F) (Tympanic) Resp 16 Wt 88 kg (194 lb) SpO2 95% BMI 27.06 kg/m? Physical Exam Vitals signs and nursing note reviewed. Constitutional: Appearance: He is well-developed. HENT: Right Ear: Tympanic membrane and ear canal normal. Left Ear: Tympanic membrane and ear canal normal. Nose: Congestion present. Right Sinus: No maxillary sinus tenderness or frontal sinus tenderness. Left Sinus: No maxillary sinus tenderness or frontal sinus tenderness. Mouth/Throat: Pharynx: Uvula midline. Cardiovascular: Rate and Rhythm: Normal rate and regular rhythm. Heart sounds: Normal heart sounds. Pulmonary: Effort: Pulmonary effort is normal. Breath sounds: Normal breath sounds. Comments: No cough noted Lymphadenopathy: Cervical: No cervical adenopathy. Skin: General: Skin is warm and dry. Neurological: Mental Status: He is alert and oriented to person, place, and time. Assessment and Plan 1. Acute non-recurrent sinusitis, unspecified location Complete entire course of antibiotic. Tessalon as needed at bedtime. mucinex DM during the day. Nasal saline/rinses, humidified air/steam, increased fluids, rest. If no improvement in 2-3 days, new/worsening, return or see PCP for further evaluation. All questions answered, verbalized understanding. - doxycycline hyclate (VIBRAMYCIN) 100 mg capsule; Take 1 capsule by mouth twice daily for 7 days. Dispense: 14 capsule; Refill: 0 2. Acute bronchitis, unspecified organism - doxycycline hyclate (VIBRAMYCIN) 100 mg capsule; Take 1 capsule by mouth twice daily for 7 days. Dispense: 14 capsule; Refill: 0 - Benzonatate 200 mg capsule; Take 1 capsule by mouth at bedtime as needed. Dispense: 10 capsule; Refill: 0 Normal [facility] Lab Report: Lipid Profileon 06-19-2017 Cholesterol 175 mg/dL Invalid Interpretation Code 200 [employer] Work Phone: [phone] HDL Cholesterol 78 mg/dL Invalid Interpretation Code [employer] Work Phone: [phone] LDL Cholesterol 83 mg/dL Invalid Interpretation Code 0-130 [employer] Work Phone: [phone] Triglyceride 72 mg/dL Invalid Interpretation Code [employer] Work Phone: [phone] very low density lipoproteins 14 mg/dL Invalid Interpretation Code 5-40 [employer] Work Phone: [phone] Lab Report: Liver Profileon 06-19-2017 Alanine aminotransferase (ALT) 35 U/L Invalid Interpretation Code 12-78 [employer] Work Phone: [phone] Albumin 4.2 g/dL Invalid Interpretation Code 3.4-5.0 [employer] Work Phone: [phone] Alkaline phosphatase (ALP) 49 U/L Invalid Interpretation Code 45-117 [employer] Work Phone: [phone] Aspartate aminotransferase (AST) 23 U/L Invalid Interpretation Code 15-37 [employer] Work Phone: [phone] Bilirubin (direct) 0.22 mg/dL Invalid Interpretation Code 0.00-0.30 [employer] Work Phone: [phone] Bilirubin (total) 0.60 mg/dL Invalid Interpretation Code 0.20-1.00 [employer] Work Phone: [phone] Globulin 3.4 g/dL Invalid Interpretation Code 2.2-4.2 [employer] Work Phone: Protein 7.6 g/dL Invalid Interpretation Code 6.4-8.2 [employer] Phone: [phone] Office Visit: New Pt. Visito n 05-14-2017 Documentation of current medications (procedure) Done Invalid Interpretation Code [employer] Phone: [phone] Fall risk assessment No Invalid Interpretation Code [facility] Work Phone: [phone] Tobacco use CPHS Former smoker Invalid Interpretation Code [facility] Work Phone: [phone] Lab Report: PSA,Total- Diagn osticon 12-19-2016 PSA, DIAGNOSTIC 0.02 ng/mL Invalid Interpretation Code 0.0-4.0 [facility] Work Phone: [phone] Chart Maintenanceon 06-28-20 16 Left ventricular Ejection fraction 60 % Invalid Interpretation Code [employer] Phone: [phone] Lab Report: PSA,Total - Do al Screenon 06-22-2015 PSA,TOT SCREEN 6.21 ng/mL High 0.00-4.00 [employer] Phone: [phone] Office Visiton 04-20-2015 cardiac risk group C Invalid Interpretation Code [employer] Phone: [phone] General cardiovascular disease 10Y risk [#] Cushman.D'Agostaria N/A Invalid Interpretation Code [employer] Phone: [phone] Replaced Document: [place] E CG Observationson 04-20-2015 EKG QRS axis 30 deg Invalid Interpretation Code [employer] Phone: [phone] Interpretation Sinus Rhythm -Frequent pvcs -ventricular bigeminy -RSR(V1) -nondiagnostic. ABNORMAL RHYTHM Invalid Interpretation Code [facility] Work Phone: [phone] P [place] 52 deg Invalid Interpretation Code [facility] Work Phone: [phone] MO Interval 180 ms Invalid Interpretation Code [facility] Work Phone: [phone] Pulse (Heart Rate) 63 /min Invalid Interpretation Code [facility] Work Phone: [phone] QRS Duration 96 ms Invalid Interpretation Code [facility] Work Phone: [phone] QT Interval new path ms Invalid Interpretation Code [facility] Work Phone: [phone] QTc Maldonado 429 ms Invalid Interpretation Code [facility] Work Phone: [phone] T [place] 20 deg Invalid Interpretation Code [facility] Work Phone: [phone] Clinical Lists Updateon 03-26 Chloride 110 mmol/L Invalid Interpretation Code [facility] Work Phone: [phone] CO2 25 mmol/L Invalid Interpretation Code [facility] Work Phone: [phone] Creatinine 0.84 mg/dL Invalid Interpretation Code [facility] Work Phone: [phone] Potassium molar conc 3.6 mmol/L Invalid Interpretation Code [facility] Work Phone: [phone] Sodium 143 mmol/L Invalid Interpretation Code [facility] Work Phone: [phone] Urea nitrogen 13 mg/dL Invalid Interpretation Code [facility] Work Phone: [phone] Lab Report: Basic Metabolic Profile (BMP)on 04-05-2015 Anion gap 9 mmol/L Invalid Interpretation Code 5-15 [facility] Work Phone: [phone] BUN/Creatinine Ratio 19.4 RATIO Invalid Interpretation Code 10-20 [facility] Work Phone: [phone] Calcium 9.0 mg/dL Invalid Interpretation Code 8.5-10.1 [facility] Work Phone: [phone] eGFR (non-black) 76 mL/min/{1.73_m2} Invalid Interpretation Code >60 [facility] Work Phone: [phone] eGFR (non-black) 92 mL/min/{1.73_m2} Invalid Interpretation Code >60 [facility] Work Phone: [phone] Glucose mass conc 90 mg/dL Invalid Interpretation Code 70-110 [facility] Work Phone: [phone] Lab Report: CBC-Complete Blo od Cnt No Diffon 04-05-2015 Erythrocyte distribution width Auto Ratio (RBC) 13.0 % Invalid Interpretation Code 11.6-14.6 [facility] Work Phone: [phone] Erythrocytes (RBC) 4.49 10*6/uL Low 4.6-6.2 [facility] Work Phone: [phone] Hematocrit (HCT) 41.8 % Invalid Interpretation Code 40-54 [facility] Work Phone: [phone] Hemoglobin mass conc (Bld) 14.1 g/dL Invalid Interpretation Code 13.0-16.5 [facility] Work Phone: [phone] MCH 31.4 pg Invalid Interpretation Code 27.0-32.0 [facility] Work Phone: [phone] MCHC mass conc (RBC) 33.7 G/GL Invalid Interpretation Code 32-36 [facility] Work Phone: [phone] MCV 93.1 fL Invalid Interpretation Code 80-94 [facility] Work Phone: [phone] Platelets 217 10*3/mm3 Invalid Interpretation Code 150-450 [facility] Work Phone: [phone] PMV by Rojelio 9.6 fL Invalid Interpretation Code 6.2-12.0 [facility] Work Phone: [phone] RDW SD 43.7 fL Invalid Interpretation Code 35.1-43.9 [facility] Work Phone: [phone] WBC (Leukocytes) 8.9 10*3/uL Invalid Interpretation Code 4.4-11.0 [facility] Work Phone: [phone] Lab Report: Partial Thrombop last Timeon 04-05-2015 aPTT 31.5 s Invalid Interpretation Code 24.1-36.2 [facility] Phone: [phone] Lab Report: Prothrombin Time w/INRon 04-05-2015 INR Coag RelTime (PPP) 0.9 {INR} Invalid Interpretation Code [facility] Work Phone: [phone] Prothrombin time (PT) Coag time (PPP) 12.9 s Invalid Interpretation Code 11.7-14.9 [facility] Work Phone: [phone] Vital Signs Date Time Vital Sign Value Performing Clinician Misti wang 10-18-2023 11:32-0500 Body height 177.[address] Ynes Guzman Work Phone: [facility] 10-18-2023 11:32-0500 Body mass index (BMI) [Ratio] 28.7 kg/m2 Dr. Ynes Guzman Work Phone: [facility] 10-18-2023 11:32-0500 Body weight 90.[address] Ynes Guzman Work Phone: [facility] 10-18-2023 11:32-0500 Diastolic blood pressure 80 mm[Hg] Dr. Ynes Guzman Work Phone: [facility] 10-18-2023 11:32-0500 Heart rate 52 /min Dr. Ynes Guzman Work Phone: [facility] 10-18-2023 11:32-0500 Respiratory rate 18 /min Dr. Ynes Guzman Work Phone: [facility] 10-18-2023 11:32-0500 SaO2% (BldA) [Mass fraction] 98 % Dr. Ynes Guzman Work Phone: [facility] 10-18-2023 11:32-0500 Systolic blood pressure 155 mm[Hg] Dr. Ynes Guzman Work Phone: [facility] 07-12-2023 08:04-0500 Body height 177.[address] Ynes Guzman Work Phone: [facility] 07-12-2023 08:04-0500 Body mass index (BMI) [Ratio] 28.8 kg/m2 Dr. Ynes Guzman Work Phone: [facility] 07-12-2023 08:04-0500 Body temperature 98.1 [degF] Dr. Ynes Guzman Work Phone: [facility] 07-12-2023 08:04-0500 Body weight 91.[address] Ynes Guzman Work Phone: [facility] 07-12-2023 08:04-0500 Diastolic blood pressure 96 mm[Hg] Dr. Ynes Guzman Work Phone: [facility] 07-12-2023 08:04-0500 Heart rate 76 /min Dr. Ynes Guzman Work Phone: [facility] 07-12-2023 08:04-0500 SaO2% (BldA) [Mass fraction] 99 % Dr. Ynes Guzman Work Phone: [facility] 07-12-2023 08:04-0500 Systolic blood pressure 150 mm[Hg] Dr. Ynes Guzman Work Phone: [facility] 06-26-2022 09:23-0400 Body height 177.[address] Ynes Guzman Work Phone: [facility] Work Phone: 06-26-2022 09:23-0400 Body mass index (BMI) [Ratio] 28.1 kg/m2 Dr. Ynes Guzman Work Phone: [facility] Work Phone: 06-26-2022 09:23-0400 Body weight 88.[address] Ynes Guzman Work Phone: [facility] Work Phone: 06-26-2022 09:23-0400 Diastolic blood pressure 73 mm[Hg] Dr. Ynes Guzman Work Phone: [facility] Work Phone: 06-26-2022 09:23-0400 Heart rate 56 /min Dr. Ynes Guzman Work Phone: [facility] Work Phone: 06-26-2022 09:23-0400 Respiratory rate 16 /min Dr. Ynes Guzman Work Phone: [facility] Work Phone: 06-26-2022 09:23-0400 SaO2% (BldA) [Mass fraction] 97 % Dr. Ynes Guzman Work Phone: [facility] Work Phone: 06-26-2022 09:23-0400 Systolic blood pressure 145 mm[Hg] Dr. Ynes Guzman Work Phone: [facility] Work Phone: 04-26-2022 15:24-0400 Body height 177.[address] Ynes Guzman Work Phone: [facility] Work Phone: 04-26-2022 15:24-0400 Body mass index (BMI) [Ratio] 27.8 kg/m2 Dr. Ynes Guzman Work Phone: [facility] Work Phone: 04-26-2022 15:24-0400 Body temperature 97.4 [degF] Dr. Ynes Guzman Work Phone: [facility] Work Phone: 04-26-2022 15:24-0400 Body weight 87.[address] Ynes Guzman Work Phone: [facility] Work Phone: 04-26-2022 15:24-0400 Diastolic blood pressure 86 mm[Hg] Dr. Ynes Guzman Work Phone: [facility] Work Phone: 04-26-2022 15:24-0400 Heart rate 69 /min Dr. Ynes Guzman Work Phone: [facility] Work Phone: 04-26-2022 15:24-0400 Respiratory rate 16 /min Dr. Ynes Guzman Work Phone: [facility] Work Phone: 04-26-2022 15:24-0400 SaO2% (BldA) [Mass fraction] 98 % Dr. Ynes Guzman Work Phone: [facility] Work Phone: 04-26-2022 15:24-0400 Systolic blood pressure 140 mm[Hg] Dr. Ynes Guzman Work Phone: [facility] Work Phone: 03-19-2022 05:57-0400 Body mass index (BMI) [Ratio] 28.8 kg/m2 Dr. Ynes Guzman Work Phone: [facility] Work Phone: 03-19-2022 05:57-0400 Body temperature 98.4 [degF] Dr. Ynes Guzman Work Phone: [facility] Work Phone: 03-19-2022 05:57-0400 Body weight 91.[address] Ynes Guzman Work Phone: [facility] Work Phone: 03-19-2022 05:57-0400 Diastolic blood pressure 63 mm[Hg] Dr. Ynes Guzman Work Phone: [facility] Work Phone: 03-19-2022 05:57-0400 Heart rate 54 /min Dr. Ynes Guzman Work Phone: [facility] Work Phone: 03-19-2022 05:57-0400 Respiratory rate 17 /min Dr. Ynes Guzman Work Phone: [facility] Work Phone: 03-19-2022 05:57-0400 SaO2% (BldA) [Mass fraction] 53 % Dr. Ynes Guzman Work Phone: [facility] Work Phone: 03-19-2022 05:57-0400 Systolic blood pressure 155 mm[Hg] Dr. Ynes Guzman Work Phone: [facility] Work Phone: 10-12-2021 12:31-0500 Body height 177.[address] Ynes Guzman Work Phone: [facility] Work Phone: 10-12-2021 12:31-0500 Diastolic blood pressure 80 mm[Hg] Dr. Ynes Guzman Work Phone: [facility] Work Phone: 10-12-2021 12:31-0500 Heart rate 62 /min Dr. Ynes Guzman Work Phone: [facility] Work Phone: 10-12-2021 12:31-0500 Respiratory rate 18 /min Dr. Ynes Guzman Work Phone: [facility] Work Phone: 10-12-2021 12:31-0500 SaO2% (BldA) [Mass fraction] 98 % Dr. Ynes Guzman Work Phone: [facility] Work Phone: 10-12-2021 12:31-0500 Systolic blood pressure 156 mm[Hg] Dr. Ynes Guzman Work Phone: [facility] Work Phone: 05-14-2017 12:57-0400 BMI (Body Mass Index) 26.36 kg/m2 [facility] Work Phone: 05-14-2017 12:57-0400 Body Temperature 98.7 [degF] [facility] Work Phone: 05-14-2017 12:57-0400 BP Diastolic 76 mm[Hg] [facility] Work Phone: 05-14-2017 12:57-0400 BP Systolic 116 mm[Hg] [facility] Work Phone: 05-14-2017 12:57-0400 Height 180.34 cm [facility] Work Phone: 05-14-2017 12:57-0400 Pulse (Heart Rate) 69 /min [facility] Work Phone: 05-14-2017 12:57-0400 Respiratory Rate 16 /min [facility] Work Phone: 05-14-2017 12:57-0400 Weight 85.73 kg [facility] Work Phone: 06-28-2016 15:07-0400 BSA (Body Surface Area) 2.03 m2 [facility] Work Phone: Encounters Encounter Date Encounter Type Care Provider Facility Start: 12-31-2024 End: 12-31-2024 ambulatory Efewongbe Oleghe Facility:[facility] Start: 10-30-2024 End: 10-30-2024 ambulatory Efewongbe Oleghe Facility:[facility] Start: 10-10-2024 End: 10-10-2024 ambulatory Efewongbe Oleghe Facility:[facility] Start: 09-10-2024 End: 09-10-2024 ambulatory Alejandro Alamo Facility:[facility] Start: 09-07-2024 End: 09-07-2024 ambulatory Efewongbe Oleghe Facility:[facility] Start: 08-31-2024 End: 09-01-2024 ambulatory Efewongbe Oleghe Facility:[facility] Start: 08-31-2024 End: 08-31-2024 ambulatory Efewongbe Oleghe Facility:[facility] Start: 08-27-2024 End: 08-27-2024 ambulatory Efewongbe Oleghe Facility:[facility] Start: 06-14-2024 End: 06-14-2024 ambulatory Efewongbe Oleghe Facility:[facility] Start: 04-16-2024 End: 04-16-2024 ambulatory Efewongbe Oleghe Facility:[facility] Start: 02-12-2024 End: 02-12-2024 ambulatory Rolanclyde Senhuseyindoris Facility:[facility] Start: 01-15-2024 End: 01-15-2024 ambulatory Rolansinaijulieth Mckinleyhuseyindoris Facility:[facility] Start: 01-15-2024 End: 01-15-2024 ambulatory Rolanhigdonjulieth Seninocencio Facility:[facility] Start: 10-28-2023 End: 10-28-[address] Ynes Guzman Work Phone: [facility] Work Phone: Start: 10-28-2023 End: 10-28-[address] Ynes Guzman Work Phone: [facility]-P[facility] Services/Neurology Work Phone: Start: 10-18-2023 End: 10-18-[address] Ynes Guzman Work Phone: [facility] Work Phone: Start: 07-12-2023 End: 07-12-[address] Ynes Guzman Work Phone: [facility] Work Phone: Start: 07-12-2023 End: 07-12-[address] Ynes Guzman Work Phone: [facility] Work Phone: Start: 07-18-2022 Non-patient / Non-visit Dr. Lalo Guzman Work Phone: [facility] Start: 07-18-2022 End: 07-18-[address] Ynes Guzman Work Phone: [facility] Work Phone: Start: 07-18-2022 End: 07-18-[address] [facility] Start: 06-26-2022 End: 06-26-[address] Ynes Guzman Work Phone: [facility] Start: 06-20-2022 End: 06-20-[address] Ynes Guzman Work Phone: [facility] Work Phone: Start: 06-20-2022 End: 06-20-[address] Ynes Guzman Work Phone: [facility]-Laboratory Start: 04-26-2022 End: 04-26-[address] Ynes Guzman Work Phone: [facility] Work Phone: Start: 04-26-2022 End: 04-26-[address] Ynes Guzman Work Phone: [facility] Start: 03-19-2022 End: 03-19-[address] [facility] Guzman [facility] Start: 01-30-2022 End: 01-30-[address] Ynes Guzman Work Phone: [facility] Start: 10-12-2021 End: 10-12-[address] Ynes Guzman Work Phone: [facility] Procedures Date Procedure Procedure Detail Performing Clinician Start: 07-18-2022 Radionuclide imaging of perfusion of myocardium under exercise stress Dr. Ynes Gzuman Work Phone: Start: 06-19-2017 End: 06-19-2017 *Hepatic Function Panel Robb Chowdhury Start: 06-19-2017 End: 06-19-2017 Lipid 1996 panel - Serum or Plasma Otilio Hamilton MD Start: 12-25-2016 End: 12-25-2016 SERGIO Hamilton MD Start: 12-25-2016 End: 12-25-2016 Follow Up Appt 6 months Robb Chowdhury Start: 12-19-2016 End: 12-19-2016 *Hepatic Function Panel Robb Chowdhury Start: 12-19-2016 End: 12-19-2016 Lipid 1996 panel - Serum or Plasma Otilio Hamilton MD Start: 06-28-2016 End: 06-28-2016 SERGIO Hamilton MD Start: 06-28-2016 End: 06-28-2016 Follow Up Appt 6 months Robb Chowdhury Start: 06-22-2016 End: 06-22-2016 *Hepatic Function Panel Robb Chowdhury Start: 06-22-2016 End: 06-22-2016 Lipid 1996 panel - Serum or Plasma Otilio Hamilton MD Start: 12-27-2015 End: 12-27-2015 SERGIO Hamilton MD Start: 12-27-2015 End: 12-27-2015 Follow Up Appt 6 months Robb Chowdhury Start: 12-22-2015 End: 12-26-2015 *Hepatic Function Panel Robb Chowdhury Start: 12-22-2015 End: 12-26-2015 Lipid 1996 panel - Serum or Plasma Otilio Hamilton MD Start: 06-28-2015 End: 06-28-2015 SERGIO Hamilton MD Start: 06-28-2015 End: 06-29-2015 Documentation of current medications Otilio Hamilton MD Start: 06-28-2015 End: 06-28-2015 Follow Up Appt 6 months Robb Chowdhury Start: 04-20-2015 End: 06-22-2015 *Hepatic Function Panel Robb Chowdhury Start: 04-20-2015 End: 04-21-2015 Documentation of current medications Otilio Hamilton MD Start: 04-20-2015 End: 06-22-2015 Lipid 1996 panel - Serum or Plasma Oitlio Hamilton MD Start: 04-08-2015 History of placement of stent for coronary artery disease History of coronary artery stent placement Dr. Ynes Guzman Work Phone: Start: 04-08-2015 End: 04-08-2015 Left Heart Cath [...] Otilio Hamilton MD Start: 03-30-2015 End: 03-30-2015 BILLING REP Otilio Hamilton MD Start: 03-30-2015 End: 03-31-2015 Documentation of [...] 06-21-2017 *Hepatic Function Panel *Hepatic Function Panel [facility] Work Phone: Start: 06-19-2018 End: 06-21-2017 Lipid panel [AGGREGATE] *Lipid Profile CC PCP [facility] Work Phone: Start: 11-13-2017 End: 11-13-2017 Appointment Appointment [facility] Work Phone: Start: 06-25-2017 End: 06-25-2017 Appointment Appointment [facility] Work Phone: Start: 06-19-2017 End: 06-19-2017 *Hepatic Function Panel *Hepatic Function Panel [facility] Work Phone: Start: 06-19-2017 End: 06-19-2017 Lipid panel [AGGREGATE] *Lipid Profile CC PCP [facility] Work Phone: Start: 05-14-2017 End: 05-14-2017 Follow Up Appt 6 months Follow Up Appt 6 months [facility] Work Phone: Start: 05-14-2017 End: 05-14-2017 Us abdominal aorta real time screen study aaa Ultrasound, abdominal aorta, screening study for abdominal aortic aneurysm (AAA) [facility] Work Phone: Start: 12-25-2016 End: 12-25-2016 BILLING REP BILLING REP [facility] Work Phone: Start: 12-25-2016 End: 12-25-2016 Follow Up Appt 6 months Follow Up Appt 6 months [facility] Work Phone: Start: 12-19-2016 End: 12-19-2016 *Hepatic Function Panel *Hepatic Function Panel [facility] Work Phone: Start: 12-19-2016 End: 12-19-2016 Lipid panel [AGGREGATE] *Lipid Profile CC PCP [facility] Work Phone: Start: 06-28-2016 End: 06-28-2016 BILLING REP BILLING REP [facility] Work Phone: Start: 06-28-2016 End: 06-28-2016 Follow Up Appt 6 months Follow Up Appt 6 months [facility] Work Phone: Start: 06-22-2016 End: 06-22-2016 *Hepatic Function Panel *Hepatic Function Panel [facility] Work Phone: Start: 06-22-2016 End: 06-22-2016 Lipid panel [AGGREGATE] *Lipid Profile CC PCP [facility] Work Phone: Start: 12-27-2015 End: 12-27-2015 BILLING REP BILLING REP [facility] Work Phone: Start: 12-27-2015 End: 12-27-2015 Follow Up Appt 6 months Follow Up Appt 6 months [facility] Work Phone: Start: 12-22-2015 End: 12-26-2015 *Hepatic Function Panel *Hepatic Function Panel [facility] Work Phone: Start: 12-22-2015 End: 12-26-2015 Lipid panel [AGGREGATE] *Lipid Profile CC PCP [facility] Work Phone: Start: 06-28-2015 End: 06-28-2015 BILLING REP BILLING REP [facility] Work Phone: Start: 06-28-2015 End: 06-28-2015 Follow Up Appt 6 months Follow Up Appt 6 months [facility] Work Phone: Start: 04-20-2015 End: 06-22-2015 *Hepatic Function Panel *Hepatic Function Panel [facility] Work Phone: Start: 04-20-2015 End: 04-20-2015 Cardiac Rehab Cardiac Rehab [facility] Work Phone: Start: 04-20-2015 End: 04-20-2015 BILLING REP BILLING REP [facility] Work Phone: Start: 04-20-2015 End: 04-20-2015 Ecg routine ecg w/least 12 lds w/i&r EKG (In office) [facility] Work Phone: Start: 04-20-2015 End: 04-20-2015 Follow Up Appt 3 months Follow Up Appt 3 months [facility] Work Phone: Start: 04-20-2015 End: 06-22-2015 Lipid panel [AGGREGATE] *Lipid Profile CC PCP [facility] Work Phone: Start: 04-18-2015 End: 04-12-2015 [facility] [address], [address] [facility] Work Phone: Start: 04-08-2015 End: 04-04-2015 Left Heart Cath Left Heart Cath [facility] Work Phone: Start: 04-04-2015 End: 04-05-2015 *BMP *BMP [facility] Work Phone: Start: 04-04-2015 End: 04-05-2015 aPTT *PTT-Partial Thromboplastin Time [facility] Work Phone: Start: 04-04-2015 End: 04-05-2015 CBC W Auto Differential panel - Blood *CBC without Diff [facility] Work Phone: Start: 04-04-2015 End: 04-06-2015 Chest x-ray X-Ray, Chest, PA & Lateral [facility] Work Phone: Start: 04-04-2015 End: 04-05-2015 INR Coag RelTime (PPP) *PT/INR [facility] Work Phone: Start: 03-30-2015 End: 03-30-2015 BILLING REP BILLING REP [facility] Work Phone: Start: 03-30-2015 End: 03-30-2015 Ecg routine ecg w/least 12 lds w/i&r EKG (In office) [facility] Work Phone: Start: 03-30-2015 End: 03-30-2015 Follow Up Appt 3 months Follow Up Appt 3 months [facility] Work Phone: Start: 03-30-2015 End: 03-30-2015 Nuclear stress test -exercise Nuclear stress test -exercise [facility] Work Phone: Patient Education [facility] Work Phone: Radionuclide imaging of perfusion of myocardium under exercise stress [facility] Work Phone: Immunizations Immunization Date Immunization Notes Care Provider [facility] 02-04-2023 Pneumococcal Vaccine PCV20 (Prevnar 20) Dr. Ynes Guzman Work Phone: [facility] 12-12-2021 Covid (Moderna) Dr. Delvin Guzman Work Phone: [facility] 08-08-2021 Covid (Moderna) Dr. Delvin Guzman Work Phone: [facility] 05-05-2021 influenza, injectabl e, quadrivalent, preservative free Dr. Ynes Guzman Work Phone: [facility] 05-05-2021 influenza, seasonal, injectable Dr. Ynes Guzman Work Phone: [facility] Work Phone: 01-27-2021 Covid (Moderna) Dr. Delvin Guzman Work Phone: [facility] 12-30-2020 Covid (Moderna) Dr. Delvin Guzman Work Phone: [facility] 09-08-[address] Ynes Guzman Work Phone: [facility] 05-04-[address] Ynes Guzman Work Phone: [facility] 06-11-[address] Ynes Guzman Work Phone: [facility] 06-11-2018 Fluad 2017- 65yr up(PF)45 mcg(15 mcgx3)/0.5 mL intramuscular syringe (flu vac Dr. Ynes Guzman Work Phone: [facility] Work Phone: 05-14-2017 Seasonal trivalent influenza vaccine, adjuvanted, preservative free Sg Hernandez [facility] Work Phone: Payers Date Payer Category Payer Self-pay [id number] Private Health Insurance 101 [id number] Medicare [id number] Unknown [id number] 2.16.8 [id number] Unknown [id number] 2.16.8 [id number] Unknown [id number] 2.16.8 [id number] Unknown [id number] 2.16.8 [id number] Unknown [id number] 2.16.8 [id number] Unknown [id number] 2.16.8 [id number] Unknown [id number] 2.16.8 [id number] Unknown [id number] 2.16.8 [id number] Unknown [id number] 2.16.8 [id number] Unknown [id number] 2.16.8 [id number] Unknown [id number] 2.16.8 [id number] Unknown [id number] 2.16.8 [id number] Unknown [id number] 2.16.8 [id number] Unknown [id number] 2.16.8 [id number] Unknown [id number] 2.16.8 [id number] Social History Date Type Detail Facility Start: 10-12-2021 End: 10-18-2023 Tobacco smoking status LAIS Unknown if ever smoked [facility] Start: 1945 Sex Assigned At Male [facility] Evaluation note Note Date & Type Note Facility Evaluation note No assessment information availa [facility] Work Phone: Evaluation note Note Date & Type Note Facility Evaluation note Diagnosis Onset Date 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 [place] (obstructive sleep apnea) chronic Hyponatremia acute Essential (primary) hypertension chronic Hyperlipemia chronic [facility] Work Phone: Evaluation note Note Date & Type Note Facility Evaluation note Diagnosis Onset Date Atherosclerotic heart disease of [place] coronary artery without angina pectoris chronic [place] (obstructive sleep apnea) chronic Hyponatremia acute Essential (primary) hypertension chronic Hyperlipemia chronic Essential (primary) hypertension chronic Hyperlipemia chronic History of coronary artery stent placement April 08, 2015 [facility] Work Phone: Evaluation note Note Date & Type Note Facility Evaluation note Diagnosis Onset Date Hyponatremia acute Essential (primary) hypertension chronic Hyperlipemia chronic Essential (primary) hypertension chronic Hyperlipemia chronic History of coronary artery stent placement April 08, 2015 [facility] Work Phone: Evaluation note Note Date & Type Note Facility Evaluation note Diagnosis Onset Date Pain of toe of right foot [place] BPH (benign prostatic hyperplasia) chronic Essential (primary) hypertension chronic Hyperlipemia chronic [facility] Work Phone: Evaluation note Note Date & Type Note Facility Evaluation note Diagnosis Onset Date Pain of toe of right foot [place] BPH (benign prostatic hyperplasia) chronic Essential (primary) hypertension chronic Hyperlipemia chronic Bradycardia acute Essential (primary) hypertension chronic Hyperlipemia chronic History of coronary artery stent placement April 08, 2015 [facility] Work Phone: Summary Purpose Family History No Family History Records Found Relationship Condition Age at Onset Recorded Date/T juli mother Cardiac disease Unknown Hypertension Unknown High blood cholesterol Unknown Kidney disorder Unknown son Hyperlipidemia Unknown father Cardiac disease Unknown Myocardial infarction Unknown Advance Directives No Advanced Directives Records Found Advance Directive Response Recorded Date/ Time Living Will Yes August 01 9:31am Power of Bed Placement Coordinator Yes August 01, 2017 9:31am Advance Directive Response Recorded Date/ Time Living Will Yes August 01 8:31am Power of Bed Placement Coordinator Yes August 01, 2017 8:31am Advance Directive Response Recorded Date/ Time Living Will Yes September 30 10:34am Power of Bed Placement Coordinator Yes September 30, 2020 10:34am Chief Complaint and Reason for Visit Chief Complaint BP CHECK Chief Complaint 1 Y FU 6 M FU Reason for Visit Atherosclerotic hear t disease of [place] coronary artery without angina pectoris [place] (obstructive sleep apnea) Hyponatremia Essential (primary) hypertension Hyperlipemia Chief Complaint 1 Y FU 6 M FU 1 Y FU Reason for Visit Atherosclerotic hear t disease [place] coronary artery without angina pectoris [place] (obstructive sleep apnea) Hyponatremia Essential (primary) hypertension Hyperlipemia Essential (primary) hypertension Hyperlipemia History of coronary artery stent placement Chief Complaint 6 M FU 1 Y FU HX OF CORONARY ARTERY STENT PLACEMENT HX OF CORONARY ARTERY STENT PLACEMENT Reason for Visit Hyponatremia Essential (primary) hypertension Hyperlipemia Essential (primary) hypertension Hyperlipemia History of coronary artery stent placement Chief Complaint 6 M FU Reason for Visit Pain of toe of right foot BPH (benign prostatic hyperplasia) Essential (primary) hypertension Hyperlipemia Chief Complaint 6 M FU 1 Y FU BRADYCARDIA Reason for Visit Pain of toe of right foot BPH (benign prostatic hyperplasia) Essential (primary) hypertension Hyperlipemia Bradycardia Essential (primary) hypertension Hyperlipemia History of coronary artery stent placement Additional Source Comments (unrecognized sect ion and content) No Status Records FoundNo Status Records Found INFORMATION SOURCE (unrecogn ized section and content) DATE CREATED AUTHOR 07/15/2019 [facility] DATE CREATED AUTHOR AUTHOR'S YOAN DEVRIES 01/02/2025 [facility] Goals (unrecognized section and content) Goals may be documented in a n alternate sectionGoals may be documented in an alternate sectionGoals may be documented in an alternate sectionGoals may be documented in an alternate sectionGoals may be documented in an alternate sectionGoals may be documented in an alternate section Care Teams (unrecognized sec tion and content) Team Status: Active Member Role Status Dates Dr. Ynes Guzman MD Family Provider Active Dr. Ynes Guzman MD Primary Care Provider Active Team Status: Inactive Member Role Status Dates Dr. Ynes Guzman MD Primary Care P rovider, Attending Provider, Referring Provider Active Team Status: Inactive Member Role Status Dates Dr. Ynes Guzman MD Primary Care Provider, Refer ring Provider Active Dr. Otilio Hamilton MD Active Maddie Sullvian CUSTODIAL ENGINEER, CUSTODIAL ENGINEER-C Attending Provider Active Team Status: Inactive Member Role Status Dates Dr. Ynes Guzman MD Primary Care Provider Active Maddie Sullivan CUSTODIAL ENGINEER, CUSTODIAL ENGINEER-C Attending Provider, Referring P rovider Active FOR RECORDS PERTAINING TO PATIENTS WHO ARE [...] BE BASED ON THE PRIMARY CLINICAL RECORDS. [employer] provides no warranty or guarantee of the accuracy or completeness of information in this document.
== END | disposition home or self-care (01) ==
LOC: LAB 16:24
PROVIDERS: PCP Internal Medicine; Referring Provider Urology; Visit Provider Urology
DX: R97.20 Elevated prostate specific antigen [PSA] (principal)
CPT/HCPCS: 36415; 84153